=== PATIENT | male | born 1945 | race Caucasian/White ===

== ENCOUNTER 2017-09-16 18:05 | Inpatient (IN) | END 2017-09-21 19:00 | disposition home or self-care (01) | DRG 246 ==

== ENCOUNTER 2017-09-25 02:12 | Inpatient (IN) | END 2017-10-15 16:48 | disposition home health service (06) | DRG 853 ==

== ENCOUNTER 2017-10-20 13:40 | Inpatient (IN) | END 2017-10-31 17:15 | disposition home health service (06) | DRG 260 ==

== ENCOUNTER 2017-11-18 22:36 | Inpatient (IN) | END 2017-11-28 16:40 | disposition home health service (06) | DRG 250 ==

== ENCOUNTER 2018-08-26 04:55 | Inpatient (IN) | payer MEDICARE, OTHER ==
[~2018-08-26] VITALS: Ht 152.4 cm; Wt 51.4 kg
[~2018-08-26 04:55] MED LIST: APIX5TAB PO; ATOR-2 PO; BUME1TAB PO; CLOP75TA28 PO; POTA-57 PO
[2018-08-26 04:59] VITALS: Ht 152.4 cm; Wt 51.4 kg
[2018-08-26] MEDS ORDERED: ASPIRIN 325 MG TAB PO STA (05:52)
[2018-08-26] MEDS ORDERED: NITROGLYCERIN (SL) 0.4 MG TAB SL PRN ×2 (06:00→14:30)
[2018-08-26] MEDS ORDERED: SOD CHLORIDE 0.9% 500 ML IV STA (06:21)
--- NOTE | 2018-08-26 06:34 | ERD ---
ER Documentation Chief Complaint Chief Complaint lower chest area (underneath breasts) pain just now;hx CHF,stents HPI This is a 73-year-old male with a known history of coronary artery disease status post stents placed in September 2017. The patient at that time underwent an ST segment elevation myocardial infarction and underwent a successful angioplasty with stent placed in the LAD. Several months later the patient had more stents placed at [facility]. He is on Eliquis on a daily basis. He also has a history of hypertension and high cholesterol. He is to have a history of tobacco use but currently has not used tobacco for over a year. He presents to the emergency department today complaining of chest pressure that occurred at 10:30 PM, 8 hours prior to arrival. The patient indicates that the pain is intermittent. He had associated symptoms of nausea and diaphoresis. He took his blood pressure medicine at the onset of his chest pain which improved his pain to 6 out of 10 to 3 out of 10 in intensity. The pain does not radiate to his neck arm back or jaw. He had no associated symptoms of shortness of breath. ROS All systems reviewed and are negative except as per history of present illness. Medications Home Meds Active Scripts Potassium Chloride* (Klor-Con*) 20 Meq Tabsr, 20 MEQ PO DAILY for 30 Days, TAB Prov:OLENA DRAKE MD 11/28/17 Bumetanide* (Bumetanide*) 1 Mg Tablet, 1 MG PO TID, #90 TAB Prov:OLENA DRAKE MD 11/28/17 Atorvastatin* (Atorvastatin*) 80 Mg Tablet, 80 MG PO HS, #30 TAB Prov:SOFIYA CARR 10/15/17 Clopidogrel Bisulfate (Clopidogrel) 75 Mg Tablet, 75 MG PO DAILY for 60 Days, #60 TAB 5 Refills Prov:SOFIYA CARR 10/15/17 Apixaban* (Eliquis*) 5 Mg Tablet, 2.5 MG PO BID for 30 Days, #60 TAB Prov:SOFIYA CARR 10/15/17 Allergies Allergies: Coded Allergies: No Known Allergy (Unverified , 10/11/17) PMhx/Soc History of Surgery: Yes (pacemaker, stent) Anesthesia Reaction: No Hx Neurological Disorder: No Hx Respiratory Disorders: Yes (COPD) Hx Psychiatric Problems: No Hx Miscellaneous Medical Probl: Yes (gout) Hx Alcohol Use: No Hx Substance Use: No Hx Tobacco Use: No Smoking Status: Former smoker Physical Exam Vitals Vital Signs Date Temp Pulse Resp B/P (MAP) Pulse Ox O2 O2 Flow FiO2 Time Delivery Rate 08/26/18 73 16 95/71 (79) 97 Nasal 1.0 07:00 Cannula 08/26/18 Nasal 2 05:50 Cannula 08/26/18 70 16 98/85 (89) 97 Room Air 05:42 08/26/18 96.0 74 20 107/63 96 04:59 (78) Physical Exam Constitutional:Well-developed. Well-nourished. HEENT:Normocephalic. Atraumatic.Pupils were equal round reactive to light. Moist mucous membranes.No tonsillar exudates. Neck: No nuchal rigidity. No lymphadenopathy. No posterior cervical spine tenderness or step-offs. Respiratory: Not using accessory muscles of respiration.Lungs were clear to auscultation bilaterally. No rhonchi. No rales. No wheezing. Cardiovascular: Regular rate regular rhythm.No murmurs. No rubs were appreciated.S1, S2 normal. Distal pulses are palpable 2+ bilaterally. GI: Abdomen was soft. Nontender. Non Distended. No pulsatile abdominal masses or bruits. No rebound. No guarding. Bowel sounds were present and normal. Muscle skeletal: Full range of motion of both the upper and lower extremities bilaterally.Normal muscle tone.No assymetrical calf tenderness or swelling. Skin: No petechia, no purpura. No lesions on the palms or the soles of the feet. No maculopapular rash. NEURO: Patient was alert, awake, orientated x3.No facial droop. Gait observed and normal with no ataxia.Speech had regular rate and rhythm. No focal neurological deficits. Result Diagram: 08/26/1815 08/26/1815 Results 24 hrs Laboratory Tests Test 08/26/18 06:15 White Blood Count 6.8 10^3/ul Red Blood Count 3.74 10^6/ul Hemoglobin 10.2 g/dl Hematocrit 33.8 % Mean Corpuscular Volume 90.4 fl Mean Corpuscular Hemoglobin 27.3 pg Mean Corpuscular Hemoglobin Concent 30.2 g/dl Red Cell Distribution Width 19.0 % Platelet Count 243 10^3/UL Mean Platelet Volume 9.6 fl Immature Granulocytes % 0.600 % Neutrophils % 74.4 % Lymphocytes % 16.3 % Monocytes % 6.5 % Eosinophils % 1.8 % Basophils % 0.4 % Nucleated Red Blood Cells % 0.0 /100WBC Immature Granulocytes # 0.040 10^3/ul Neutrophils # 5.1 10^3/ul Lymphocytes # 1.1 10^3/ul Monocytes # 0.4 10^3/ul Eosinophils # 0.1 10^3/ul Basophils # 0.0 10^3/ul Nucleated Red Blood Cells # 0.0 10^3/ul Prothrombin Time 16.4 Sec Prothrombin Time Ratio 1.3 INR International Normalized Ratio 1.31 Activated Partial Thromboplast Time 43.4 Sec Sodium Level 145 mmol/L Potassium Level 3.8 mmol/L Chloride Level 110 mmol/L Carbon Dioxide Level 21 mmol/L Anion Gap 14 Blood Urea Nitrogen 33 mg/dl Creatinine 1.32 mg/dl Est Glomerular Filtrat Rate mL/min mL/min Glucose Level 141 mg/dl Calcium Level 9.6 mg/dl Total Bilirubin 0.5 mg/dl Direct Bilirubin 0.00 mg/dl Indirect Bilirubin 0.5 mg/dl Aspartate Amino Transf (AST/SGOT) 33 IU/L Alanine Aminotransferase (ALT/SGPT) 24 IU/L Alkaline Phosphatase 151 IU/L Troponin I 0.049 ng/ml B-Type Natriuretic Peptide 20114 PG/ML Total Protein 8.0 g/dl Albumin 4.1 g/dl Globulin 3.90 g/dl Albumin/Globulin Ratio 1.05 Lipase 41 U/L Current Medications Medications Dose Sig/Nicole Start Time Status Last (Trade) Ordered Route PRN Stop Time Admin Dose Reason Admin Aspirin 325 mg ONCE STAT 08/26/18 DC 08/26/18 (Aspirin) PO 05:52 06:18 08/26/18 05:54 1 tab Q5M UP TO 3 08/26/18 Nitroglycerin DOSES PRN 06:00 SL .CHEST (Nitroglyceri PAIN n (Sl Tab) 0.4 Mg) Sodium 500 ml @ Q1H STAT 08/26/18 DC 08/26/18 Chloride 500 mls/hr IV 06:21 06:56 08/26/18 07:20 Albuterol 5 mg ONCE STAT 08/26/18 DC (Proventil NEB 08:25 0.083% (Neb)) 08/26/18 08:27 Ipratropium 0.5 mg ONCE STAT 08/26/18 DC Roberts NEB 08:25 (Atrovent 08/26/18 08:27 0.02% (Neb)) Procedures/MDM The patient presented to the emergency department with chest pain. My clinical evaluation and workup was to distinguish minor causes of chest pain from acute life threatening conditions such as myocardial infarction, pulmonary embolism, aortic dissection, esophageal rupture, cardiac tamponade. The patient was placed on a security monitor and continuous pulse oximetry. The patient was given aspirin but nitroglycerin was not given as the patient was hypotensive. He did receive a 500 cc bolus of normal saline which improved his hypotension. 12 Lead EKG tracing ordered and reviewed by myself showed: Normal sinus rhythm of 81 bpm and no arrhythmia. [place] interval normal. QRS duration normal. No ST segment elevation. Premature supraventricular complexes No ST segment depression. No changes consistent with acute ischemia. The patient had an elevation of his BNP at 10,000. Chest radiograph had mild pulmonary vascular congestion. The patient received a nebulizer treatment. Lasix was not given as the patient was hypotensive. He remained alert awake and oriented x3 and was chest pain-free Due to the patient's significant previous cardiac history did feel he required admission for observation for serial twelve-lead EKG tracings and cardiac set of enzymes. His stage manager is Dr. Lara. Departure Diagnosis: Primary Impression: Chest pain Chest pain type: unspecified Qualified Codes: R07.9 - Chest pain, unspecified Additional Impression: CHF (congestive heart failure) Heart failure type: unspecified Heart failure chronicity: acute Qualified Codes: I50.9 - Heart failure, unspecified Condition: Serious JUAN MARTINEZ MD Aug 26, 2018 06:34
[2018-08-26] MEDS ORDERED: IPRATROPIUM (NEB) 0.5 MG/2.5 ML AMP NEB STA (08:25)
[2018-08-26] MEDS ORDERED: ALBUTEROL 0.083% (NEB) 2.5 MG/3 ML AMP NEB STA (08:25)
[2018-08-26] MEDS ORDERED: ONDANSETRON 4 MG INJ IV PRN ×2 (09:00→14:30)
[2018-08-26] MEDS ORDERED: ACETAMINOPHEN 325 MG TAB PO PRN ×2 (09:00→14:30)
[2018-08-26] MEDS ORDERED: CLOP75TA19 PO (10:58)
[2018-08-26] MEDS ORDERED: LOSA25TA12 PO (10:59)
[2018-08-26] MEDS ORDERED: APIX2.5T PO (10:59)
[2018-08-26] MEDS ORDERED: ATOR-2 PO (10:59)
[2018-08-26] MEDS ORDERED: FURO40TA4 PO (11:00)
[2018-08-26] MEDS ORDERED: POTA10TA37 PO (11:00)
[2018-08-26] MEDS ORDERED: ALLO300T2 PO (11:01)
--- NOTE | 2018-08-26 13:45 | HP ---
Date/Time of Note Date/Time of Note DATE: 08/26/18 TIME: 13:45 Assessment/Plan VTE Prophylaxis Pharmacological prophylaxis: apixaban Lines/Catheters IV Catheter Type (from [facility]): Saline Lock Assessment/Plan Hospital Course 73-year-old male with multiple comorbidities including CHF, CAD status post coronary artery stenting, paroxysmal atrial fibrillation, peripheral artery disease, chronic kidney disease, mitral regurgitation, COPD, and AICD placement. The patient came to the emergency room with chief complaint of dyspnea and chest pain, who was found to have evidence of underlying CHF exacerbation and will be admitted to inpatient setting for further treatment and evaluation. 1. Chest pain. -Known history of CAD. -Continue antiplatelet therapy. -Continue statins. -Serial troponins will be ordered. -A 2D echocardiogram will be ordered. -Cardiology consult will be obtained. 2. Acute on chronic congestive heart failure exacerbation, systolic dysfunction. -Will diurese the patient while carefully monitoring the patient's blood pressu re. -Obtain a 2D echocardiogram to evaluate the left ventricular ejection fraction. 3. Chronic kidney disease -Monitor BUN and creatinine closely -Use nephrotoxic drugs with caution. 4. Peripheral artery disease. -Continue antiplatelet therapy. 5. Paroxysmal atrial fibrillation. -Currently in sinus rhythm. -Continue factor Xa inhibitors for stroke prophylaxis. 6. CAD. -Status post coronary artery stenting. -Continue antiplatelet therapy. 7. Cardiomyopathy. -Continue ARB's. -Status post AICD placement. -Cardiology evaluation. 8. Dyslipidemia. -Continue statins. 9. COPD. -Continue inhaled bronchodilators. Plan: The patient will be admitted to inpatient telemetry floor. The patient will be started on a low-cholesterol diet. The patient will be started on DVT prophylaxis. The patient will remain a full code. Activities will be as tolerated. The rest of the patient's management will be based on the clinical course, inputs from consultants, and the results of diagnostic studies. Based on the patient's clinical presentation, he most probably requires at least 2 midnights' stay for further management and evaluation of his clinical presentation. The patient was seen in collaboration with Dr. Ulrich. Result Diagram: 08/26/18 0615 08/26/18 0615 Results 24hrs Laboratory Tests Test 08/26/18 06:15 08/26/18 12:51 White Blood Count 6.8 Red Blood Count 3.74 L Hemoglobin 10.2 L Hematocrit 33.8 L Mean Corpuscular Volume 90.4 Mean Corpuscular Hemoglobin 27.3 L Mean Corpuscular Hemoglobin Concent 30.2 L Red Cell Distribution Width 19.0 #H Platelet Count 243 Mean Platelet Volume 9.6 Immature Granulocytes % 0.600 H Neutrophils % 74.4 Lymphocytes % 16.3 Monocytes % 6.5 Eosinophils % 1.8 Basophils % 0.4 Nucleated Red Blood Cells % 0.0 Immature Granulocytes # 0.040 H Neutrophils # 5.1 Lymphocytes # 1.1 Monocytes # 0.4 Eosinophils # 0.1 Basophils # 0.0 Nucleated Red Blood Cells # 0.0 Prothrombin Time 16.4 H Prothrombin Time Ratio 1.3 INR International Normalized Ratio 1.31 Activated Partial Thromboplast Time 43.4 H Sodium Level 145 H Potassium Level 3.8 Chloride Level 110 Carbon Dioxide Level 21 Anion Gap 14 H Blood Urea Nitrogen 33 H Creatinine 1.32 H Est Glomerular Filtrat Rate mL/min Glucose Level 141 Calcium Level 9.6 Total Bilirubin 0.5 Direct Bilirubin 0.00 Indirect Bilirubin 0.5 Aspartate Amino Transf (AST/SGOT) 33 Alanine Aminotransferase (ALT/SGPT) 24 Alkaline Phosphatase 151 H Troponin I 0.049 0.022 B-Type Natriuretic Peptide 51263 H Total Protein 8.0 Albumin 4.1 Globulin 3.90 H Albumin/Globulin Ratio 1.05 Lipase 41 Creatine Kinase 47 Creatine Kinase Index 2.3 Creatinine Kinase MB (Mass) 1.10 HPI/ROS Admit Date/Time Admit Date/Time Hx of Present Illness Reason for admission: Chest pain. Consultants 1. Cardiology. This is a 73-year-old male with past medical history of systolic heart failure, CAD status post coronary artery stenting, paroxysmal atrial fibrillation, peripheral artery disease, chronic kidney disease, mitral regurgitation, COPD, and prior nicotine use. Patient came to the emergency room with chief complaint of chest pain that started from the night of 08/25/2018. The patient also verbalized associated shortness of breath. The patient denied any associated nausea, vomiting, or diaphoresis. The patient verbalized that he has been compliant with all his medications. The denied any fevers or chills. In the emergency room, the patient's initial set of troponins were negative. The patient's chest x-ray was showing slight to moderate right and small left pleural effusion with mild pulmonary edema. The patient's initial set of tropon ins were negative. The patient was treated with inhaled bronchodilators, aspirin, and Lasix. ROS Constitutional: fatigue Eyes: no complaints ENT: no complaints Respiratory: shortness of breath Cardiovascular: chest pain Gastrointestinal: no complaints Genitourinary: no complaints Musculoskeletal: no complaints Skin: no complaints Neurologic: no complaints Endocrine: no complaints Lymphatic: no complaints Psychological: no complaints Immunologic: no complaints PMH/Family/Social Past Medical History - CHF -Ischemic cardiomyopathy. -CAD. -Paroxysmal atrial fibrillation. -Peripheral arterial disease. -Chronic kidney disease -Mitral regurgitation. -COPD. Medications Current Medications Nitroglycerin (Nitroglycerin (Sl Tab) 0.4 Mg) 1 tab Q5M UP TO 3 DOSES PRN SL .CHEST PAIN; Start 08/26/18 at 06:00 Ondansetron HCl (Zofran Inj) 4 mg ER BRIDGE PRN IV NAUSEA/VOMITING; Start 08/26/18 at 09:00; Stop 08/27/18 at 08:59 Acetaminophen (Tylenol Tab) 650 mg ER BRIDGE PRN PO .MILD PAIN 1-3 OR TEMP; Start 08/26/18 at 09:00; Stop 08/27/18 at 08:59 Coded Allergies: No Known Allergy (Unverified , 08/27/18) Past Surgical History Past Surgical Hx: angioplasty, other (AICD placement, removal of infected AICD.) Family History Significant Family History: no pertinent family hx Social History Alcohol Use: none Smoking Status: Former smoker Drug Use: none Exam/Review of Systems Vital Signs Vitals Vital Signs Date Temp Pulse Resp B/P (MAP) Pulse Ox O2 O2 Flow FiO2 Time Delivery Rate 08/26/18 62 20 95 2.0 27 09:11 08/26/18 96/69 (78) Nasal 09:00 Cannula 08/26/18 96.0 04:59 Exam Exam General: Adequately build 73 year-old male lying in bed in mild respiratory distress. HEENT: Normocephalic, atraumatic. Eyes: Anicteric sclerae, conjunctivae clear. ENT: Nasal septum midline, oral mucosa moist. JVD noticed. Respiratory: Bilaterally diminished breath sounds. Use of accessory muscles of respiration. Bibasilar Rales. Expiratory wheezing. Cardiovascular: S1, S2 heard. Regular rate and rhythm. Abdomen: Soft, nontender, and nondistended. Bowel sounds positive in all 4 quadrants. Genitourinary: Deferred. Extremities: No cyanosis, no edema. Neurologic: Cranial nerves II through XII grossly intact. The patient is awake, alert, and oriented. Skin: Normal skin turgor. No skin rashes. Additional Comments CXR IMPRESSION: Small to moderate right and small left bilateral pleural effusions. Mild pulmonary edema. CHERISE RICO NP Aug 26, 2018 13:45
[2018-08-26] MEDS ORDERED: NACL 0.9% 3 ML SYG IV SCH (14:30)
[2018-08-26 16:11] VITALS: BP 101/60; PULSE 74; RESP 24
[2018-08-26] MEDS ORDERED: ALBUTEROL/IPRATROPIUM (NEB) 3 ML AMP HHN PRN (16:30)
[2018-08-26 17:14] VITALS: PULSE 81
[2018-08-26] MEDS: FUROSEMIDE 40 MG INJ IV SCH (17:40)
[2018-08-26] MEDS ORDERED: FUROSEMIDE 20 MG INJ IV SCH (18:00)
[2018-08-26 20:00] VITALS: BP 100/60; PULSE 75; PULSE 82; RESP 20
[2018-08-26] MEDS: ALBUTEROL/IPRATROPIUM (NEB) 3 ML AMP HHN SCH (20:55)
[2018-08-26] MEDS: ATORVASTATIN 80 MG TAB PO SCH (21:42)
[2018-08-26] MEDS: APIXABAN 5 MG TABLET PO SCH (21:42)
[2018-08-26 21:44] VITALS: PULSE 42
[2018-08-26] MEDS ORDERED: HEPARIN 5,000 UNIT/1 ML VIAL SC SCH (22:00)
[2018-08-27] VITALS (11 sets, daily range): BP systolic 89–113; BP diastolic 51–70; PULSE 62–143; RESP 18–20
[2018-08-27] MEDS: FUROSEMIDE 40 MG INJ IV SCH ×3 (05:35→18:54)
[2018-08-27] MEDS: ALBUTEROL/IPRATROPIUM (NEB) 3 ML AMP HHN SCH ×3 (08:28→19:19)
[2018-08-27] MEDS: CLOPIDOGREL 75 MG TAB PO SCH (08:36)
[2018-08-27] MEDS: APIXABAN 5 MG TABLET PO SCH ×2 (08:36→20:53)
[2018-08-27] MEDS: ALLOPURINOL 300 MG TAB PO SCH (08:36)
[2018-08-27] MEDS: LOSARTAN 25 MG TAB PO SCH (08:37)
[2018-08-27] MEDS ORDERED: POTASSIUM CHLORIDE 20 MEQ POWDER FOR ORAL SOLN PO ONE (09:00)
[2018-08-27] MEDS: SPIRONOLACTONE 25 MG TAB PO SCH (09:56)
--- NOTE | 2018-08-27 10:00 | RADRPT ---
Echocardiogram Report Patient Name: ELIDA FLYNNPatient ID: [id number] : 1945 (73y 4m)Study Date: 08/27/2018 7:58:35 AM Gender: Nelaion #: [id number] Tech: Laura Alvarado [facility] Location: [facility] Ref.Physician: CHERISE RICO Height(Cm): BSA: Weight(Kg): Quality: AdequateAccount #: Procedures: Echocardiographic Report: Transthoracic echocardiogram with complete 2D, M-Mode, and doppler examination. Indications: Chest Pain. Measurements: 2D/M Mode Doppler Measurement Value Normal Range Measurement Value Normal Range LVIDd 2D 5.7 [ 4.2 - 5.8 ] cm AV Peak Tulio 1.5 [ 100.0 - 170.0 ] cm/sec LVIDs 2D 4.8 [ 2.5 - 4.0 ] cm AV Peak PG 9.0 [ 2.0 - 9.0 ] mmHg LVPWd 2D 0.8 [ 0.6 - 1.0 ] cm LVOT Peak Tulio 0.6 [ 70.0 - 110.0 ] cm/sec IVSd 2D 0.9 [ 0.6 - 1.0 ] cm LVOT Peak PG 1.0 [ 2.0 - 6.0 ] mmHg IVS/LVPW 2D 1.0 ratio MV E Peak Tulio 1.1 [ 60.0 - 130.0 ] cm/sec AoR Diam 2D 2.5 [ 2.6 - 3.4 ] cm MV A Peak Tulio 0.3 [ 100.0 - 120.0 ] cm/sec LA/Ao 2D 2 ratio MV E/A 3.6 [ 0.8 - 1.5 ] ratio LA Dimen 2D 4.0 [ 3.0 - 4.0 ] cm MV Decel Time 127 [ 104 - 258 ] msec Lat E` Tulio 0.1 [ 10.0 - 15.0 ] cm/sec MV E/A 3.6 [ 0.8 - 1.5 ] ratio TR Peak Tulio 4.1 [ 100.0 - 280.0 ] cm/sec TR Peak PG 66.0 mmHg RVSP 74.0 [ 10.0 - 36.0 ] mmHg RA Pressure 8.0 mmHg Findings: Left Ventricle: Normal left ventricular wall thickness. Mild enlargement of left ventricle cavity. Severe global left ventricular systolic dysfunction with some regional variation and slightly better basal contraction. Ejection fraction is visually estimated at 20 %. Tissue Doppler/Mitral Doppler indices are consistent with restrictive physiology with markedly elevated left atrial pressure (Stage III-IV diastolic dysfunction). Right Ventricle: Normal right ventricular size. Normal right ventricular systolic function. Linear artifact in right ventricle suggestive of catheter, pacer lead, or ICD lead. Left Atrium: There is moderate enlargement of left atrium. Right Atrium: There is mild enlargement of right atrium. Mitral Valve: Normal appearance of the mitral valve. Mild mitral annular calcification. Moderate mitral valve regurgitation. Aortic Valve: Aortic sclerosis without significant stenosis. Mild aortic valve regurgitation. Tricuspid Valve: Normal appearance of the tricuspid valve. Estimated peak PA systolic pressure 74 mmHg. There is moderate to severe tricuspid regurgitation. Pulmonic Valve: Normal pulmonic valve appearance. Pericardium: Normal pericardium with no significant pericardial effusion. Aorta: Normal aortic root. IVC: Normal size and no respiratory collapse consistent with elevated right atrial pressure. Conclusions: Normal left ventricular wall thickness. Mild enlargement of left ventricle cavity. Severe global left ventricular systolic dysfunction with some regional variation and slightly better basal contraction. Ejection fraction is visually estimated at 20 %. Tissue Doppler/Mitral Doppler indices are consistent with restrictive physiology with markedly elevated left atrial pressure (Stage III-IV diastolic dysfunction). Moderate mitral valve regurgitation. Aortic sclerosis without significant stenosis. Mild aortic valve regurgitation. Moderate to severe tricuspid regurgitation. Linear artifact in right ventricle due to ICD lead. Severe pulmonary HTN with estimated peak PA systolic pressure 74 mmHg based on RA pressure of 8 mmHg. Electronically Signed By: Kishan Lara 2018-08-27 09:59:00 PDT
--- NOTE | 2018-08-27 10:12 | CONS ---
Assessment/Plan Assessment/Plan Hospital Course (Demo Recall) Acute on chronic systolic heart failure: Decompensated by exam and CXR. Possible trigger was recent viral vs bacterial illness Chest pain: More chest wall pain which he has had in the setting of CHF exacerbation vs from subendocardial ischemia in setting of elevated EDP. Troponins negative. Stress test will be misleading in setting of multiple MIs and doubt in stent restenosis or stent occlusion. For now med management of CHF and if recurrence, will consider further workup. H/o anterior STEMI: occurred 09/16/17. s/p PCI of prox-mid LAD. Ischemic cardiomyopathy: EF 20% and unchanged from post PCI 12/04 echo at [facility] PAD: right iliac 95% seen on cath 09/03. Considering outpt revascularization. CAD: attempted PCI of [employer] of mid Cx and prox RCA by me 11/22/17 which was unsuccessful but had successful PCI 12/01/17 at [facility]. Now fully revascularized. s/p [employer] ICD 01/2018 NSVT Paroxysmal atrial fibrillation: occurred during STEMI. 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 CKD: Cr baseline 1.3-1.6 -increase to lasix 40mg IV q8h -continue Eliquis 2.5mg BID -plavix 75mg -lipitor 80mg -losartan 25mg as tolerated -has not tolerated BB in past due to hypotension -aldactone 25mg -PRN nebs for COPD Consultation Date/Type/Reason Admit Date/Time Date of Consultation: Aug 27, 2018 Type of Consult Cardiology Reason for Consultation CHF, chest pain Requesting Provider: CHERISE RICO NP Date/Time of Note DATE: 08/27/18 TIME: 10:00 Hx of Present Illness 73 yo M who is very well known to me from prior admissions and clinic who has a complex cardiac history (see A/P for details), who presented with lower chest pain and dyspnea. He notes that he has been doing well since he last saw me 06/05 for routine follow up. About 4 days ago he started to develop a productive cough which he describes as being purulent. No fevers. His cough improved but he started to develop dyspnea and chest pain. The chest pain is unlike his GA pain which was substernal and mid chest. This is more lower chest around his ribs which is what he generally has felt in the past in the setting of his CHF exacerbation. He also has dyspnea, orthopnea. No edema. He is compliant with all of his meds and has not had a change in diet or salt intake. Troponins have been negative and he denies further chest pain. His dyspnea has improved somewhat with lasix last night. per hPI Past Medical History see details in A/P Home Meds Reported Medications Allopurinol* (Allopurinol*) 300 Mg Tablet, 300 MG PO DAILY, TAB 08/26/18 Potassium Chloride* (K-Dur*) 10 Meq Tab.prt.sr, 10 MEQ PO DAILY, TAB 08/26/18 Furosemide* (Furosemide*) 40 Mg Tablet, 40 MG PO BID, TAB 08/26/18 Atorvastatin* (Atorvastatin*) 80 Mg Tablet, 80 MG PO QHS, #30 TAB 08/26/18 Losartan Potassium* (Losartan Potassium*) 25 Mg Tablet, 25 MG PO DAILY, TAB 08/26/18 Apixaban* (Eliquis*) 2.5 Mg Tablet, 2.5 MG PO BID, TAB 08/26/18 Clopidogrel Bisulfate* (Clopidogrel Bisulfate*) 75 Mg Tablet, 75 MG PO DAILY, #30 TAB 08/26/18 Discontinued Scripts Potassium Chloride* (Klor-Con*) 20 Meq Tabsr, 20 MEQ PO DAILY for 30 Days, TAB Prov:OLENA DRAKE MD 11/28/17 Bumetanide* (Bumetanide*) 1 Mg Tablet, 1 MG PO TID, #90 TAB Prov:OLENA DRAKE MD 11/28/17 Atorvastatin* (Atorvastatin*) 80 Mg Tablet, 80 MG PO HS, #30 TAB Prov:SOFIYA CARR 10/15/17 Clopidogrel Bisulfate (Clopidogrel) 75 Mg Tablet, 75 MG PO DAILY for 60 Days, #60 TAB 5 Refills Prov:SOFIYA CARR 10/15/17 Apixaban* (Eliquis*) 5 Mg Tablet, 2.5 MG PO BID for 30 Days, #60 TAB Prov:SOFIYA CARR 10/15/17 Medications Current Medications IV Flush (NS 3 ml) 3 ml PER PROTOCOL IV Last administered on 08/26/18at 21:43; Admin Dose 3 ML; Start 08/26/18 at 14:30 Ondansetron HCl (Zofran Inj) 4 mg Q6H PRN IV NAUSEA/VOMITING; Start 08/26/18 at 14:30 Nitroglycerin (Nitroglycerin (Sl Tab) 0.4 Mg) 1 tab Q5M PRN SL .CHEST PAIN; Start 08/26/18 at 14:30 Acetaminophen (Tylenol Tab) 650 mg Q6H PRN PO .PAIN 1-3 OR TEMP; Start 08/26/18 at 14:30 Allopurinol (Zyloprim) 300 mg DAILY PO Last administered on 08/27/18at 08:36; Admin Dose 300 MG; Start 08/27/18 at 09:00 Apixaban (Eliquis) 2.5 mg BID PO Last administered on 08/27/18at 08:36; Admin Dose 2.5 MG; Start 08/26/18 at 21:00 Atorvastatin Calcium (Lipitor) 80 mg QHS PO Last administered on 08/26/18at 21:42; Admin Dose 80 MG; Start 08/26/18 at 21:00 Clopidogrel Bisulfate (plaVIX) 75 mg DAILY PO Last administered on 08/27/18at 08:36; Admin Dose 75 MG; Start 08/27/18 at 09:00 Losartan Potassium (Cozaar) 25 mg DAILY PO ; Start 08/27/18 at 09:00 Albuterol/ Ipratropium (Duoneb) 3 ml Q6HWA RESP THERAPY HHN Last administered on 08/27/18at 08:28; Admin Dose 3 ML; Start 08/26/18 at 20:00 Albuterol/ Ipratropium (Duoneb) 3 ml Q2H RESP THERAPY PRN HHN SHORTNESS OF BREATH; Start 08/26/18 at 16:30 Spironolactone (Aldactone) 25 mg DAILY PO Last administered on 08/27/18at 09:56; Admin Dose 25 MG; Start 08/27/18 at 09:00 Furosemide (Lasix) 40 mg Q8H IV ; Start 08/27/18 at 10:00; Status UNV Allergies: Coded Allergies: No Known Allergy (Unverified , 08/27/18) Past Surgical History Past Surgical Hx: angioplasty, other (AICD placement, removal of infected AICD.) Social History Alcohol Use: none Smoking Status: Former smoker Drug Use: none Exam/Review of Systems Exam Vitals Vital Signs Date Temp Pulse Resp B/P (MAP) Pulse Ox O2 O2 Flow FiO2 Time Delivery Rate 08/27/18 2.0 08:28 08/27/18 79 18 88 21 08:28 08/27/18 97.8 89/55 (66) 07:07 08/26/18 Nasal 20:55 Cannula Intake and Output 08/26/18 08/26/18 08/27/18 1515:00 23:00 07:00 IntakeIntake Total 360 ml 350 ml OutputOutput Total 500 ml 850 ml BalanceBalance -140 ml -500 ml Constitutional: alert, oriented; No distress Head: normocephalic, atraumatic Neck: jvd (10cm) Respiratory: crackles/rales (mid lungs ); No clear to auscultation Cardiovascular: regular rate and rhythm, edema (trace), systolic murmur (2/6 HSM) Gastrointestinal: soft, non-tender; No distended Neurological: nl mental status, nl speech Results Result Diagram: 08/27/1838 08/27/18 0538 Results 24hrs Laboratory Tests Test 08/26/18 12:51 08/26/18 16:40 08/27/18 05:38 Creatine Kinase 47 51 49 Creatine Kinase Index 2.3 2.4 3.3 Creatinine Kinase MB (Mass) 1.10 1.20 1.61 Troponin I 0.022 0.022 0.058 White Blood Count 7.2 Red Blood Count 3.36 L Hemoglobin 9.2 L Hematocrit 30.1 L Mean Corpuscular Volume 89.6 Mean Corpuscular Hemoglobin 27.4 L Mean Corpuscular Hemoglobin Concent 30.6 L Red Cell Distribution Width 19.1 H Platelet Count 234 Mean Platelet Volume 10.1 Immature Granulocytes % 0.400 Neutrophils % 76.2 Lymphocytes % 14.1 L Monocytes % 6.4 Eosinophils % 2.2 Basophils % 0.7 Nucleated Red Blood Cells % 0.0 Immature Granulocytes # 0.030 Neutrophils # 5.5 Lymphocytes # 1.0 Monocytes # 0.5 Eosinophils # 0.2 Basophils # 0.1 Nucleated Red Blood Cells # 0.0 Sodium Level 145 H Potassium Level 3.8 Chloride Level 114 H Carbon Dioxide Level 21 Anion Gap 10 Blood Urea Nitrogen 28 H Creatinine 1.11 Est Glomerular Filtrat Rate mL/min Glucose Level 128 Calcium Level 9.4 Phosphorus Level 3.4 Magnesium Level 2.2 B-Type Natriuretic Peptide 72879 H Triglycerides Level 64 Cholesterol Level 99 L LDL Cholesterol, Calculated 54 HDL Cholesterol 32 Cholesterol/HDL Ratio 3.0 Medications Medication Current Medications IV Flush (NS 3 ml) 3 ml PER PROTOCOL IV Last administered on 08/26/18 21:43; Admin Dose 3 ML; Start 08/26/18 at 14:30 Ondansetron HCl (Zofran Inj) 4 mg Q6H PRN IV NAUSEA/VOMITING; Start 08/26/18 at 14:30 Nitroglycerin (Nitroglycerin (Sl Tab) 0.4 Mg) 1 tab Q5M PRN SL .CHEST PAIN; Start 08/26/18 at 14:30 Acetaminophen (Tylenol Tab) 650 mg Q6H PRN PO .PAIN 1-3 OR TEMP; Start 08/26/18 at 14:30 Allopurinol (Zyloprim) 300 mg DAILY PO Last administered on 08/27/18 08:36; Admin Dose 300 MG; Start 08/27/18 at 09:00 Apixaban (Eliquis) 2.5 mg BID PO Last administered on 08/27/18 08:36; Admin Dose 2.5 MG; Start 08/26/18 at 21:00 Atorvastatin Calcium (Lipitor) 80 mg QHS PO Last administered on 08/26/18 21:4 2; Admin Dose 80 MG; Start 08/26/18 at 21:00 Clopidogrel Bisulfate (plaVIX) 75 mg DAILY PO Last administered on 08/27/18 08:36; Admin Dose 75 MG; Start 08/27/18 at 09:00 Losartan Potassium (Cozaar) 25 mg DAILY PO ; Start 08/27/18 at 09:00 Albuterol/ Ipratropium (Duoneb) 3 ml Q6HWA RESP THERAPY HHN Last administered on 08/27/18 08:28; Admin Dose 3 ML; Start 08/26/18 at 20:00 Albuterol/ Ipratropium (Duoneb) 3 ml Q2H RESP THERAPY PRN HHN SHORTNESS OF BREATH; Start 08/26/18 at 16:30 Spironolactone (Aldactone) 25 mg DAILY PO Last administered on 08/27/18 09:56; Admin Dose 25 MG; Start 08/27/18 at 09:00 Furosemide (Lasix) 40 mg Q8H IV ; Start 08/27/18 at 10:00; Status JUANITO LOZANO Aug 27, 2018 10:12
[2018-08-27] MEDS ORDERED: FUROSEMIDE 40 MG INJ ONE (11:32)
[2018-08-27] MEDS ORDERED: GUAIFENESIN/DM 5ML CUP PO PRN (17:30)
[2018-08-27] MEDS: FAMOTIDINE 20 MG TAB PO SCH (18:54)
[2018-08-27] MEDS: SENNA/DOCUSATE NA (8.6MG/50MG) TAB PO SCH (20:52)
[2018-08-27] MEDS: ATORVASTATIN 80 MG TAB PO SCH (20:52)
[2018-08-28] VITALS (10 sets, daily range): BP systolic 94–101; BP diastolic 58–69; PULSE 72–86; RESP 18–20
[2018-08-28] MEDS: APIXABAN 5 MG TABLET PO SCH ×2 (08:14→20:49)
[2018-08-28] MEDS: THIAMINE 100 MG TAB PO SCH (08:14)
[2018-08-28] MEDS: FUROSEMIDE 40 MG INJ IV SCH ×4 (08:14→17:03)
[2018-08-28] MEDS: ALLOPURINOL 300 MG TAB PO SCH (08:14)
[2018-08-28] MEDS: LOSARTAN 25 MG TAB PO SCH (08:14)
[2018-08-28] MEDS: SPIRONOLACTONE 25 MG TAB PO SCH (08:14)
[2018-08-28] MEDS: FAMOTIDINE 20 MG TAB PO SCH (08:15)
[2018-08-28] MEDS: CLOPIDOGREL 75 MG TAB PO SCH (08:15)
[2018-08-28] MEDS: ALBUTEROL/IPRATROPIUM (NEB) 3 ML AMP HHN SCH ×3 (08:24→22:57)
--- NOTE | 2018-08-28 08:37 | CONS ---
Assessment/Plan Assessment/Plan Hospital Course (Demo Recall) Acute on chronic systolic heart failure: Decompensated by exam and CXR. Possible trigger was recent viral vs bacterial illness. Though extremities are warm, elevated lactate reflects hypoperfusion and pt remains significantly decompensated Chest pain: More chest wall pain which he has had in the setting of CHF exacerbation vs from subendocardial ischemia in setting of elevated EDP. Troponins negative. Stress test will be misleading in setting of multiple MIs and doubt in stent restenosis or stent occlusion. For now med management of CHF and if recurrence, will consider further workup. H/o anterior STEMI: occurred 09/16/17. s/p PCI of prox-mid LAD. Ischemic cardiomyopathy: EF 20% and unchanged from post PCI 12/[address] [facility] PAD: right iliac 95% seen on cath 09/03. Considering outpt revascularization. CAD: attempted PCI of [employer] of mid Cx and prox RCA by me 11/22/17 which was unsuccessful but had successful PCI 12/01/[address] [facility]. Now fully revascularized. s/p [employer] ICD 01/2018 NSVT Paroxysmal atrial fibrillation: occurred during STEMI. On Eliquis Chronic respiratory failure: now off home oxygen COPD Tobacco use: heavy use now in remission after [place] CKD: Cr baseline 1.3-1.6 -increase to lasix 60mg IV q8h -one dose of metolazone 5mg -continue Eliquis 2.5mg BID -plavix 75mg -lipitor 80mg -losartan 25mg as tolerated -has not tolerated BB in past due to hypotension -aldactone 25mg -PRN nebs for COPD Consultation Date/Type/Reason Admit Date/Time Aug 26, 2018 at 08:35 Initial Consult Date 08/27/18 Type of Consult Cardiology Requesting Provider: CHERISE RICO NP Date/Time of Note DATE: 08/28/18 TIME: 08:33 24 HR Interval Summary Free Text/Dictation Lactate 2.2 this am. Net negative <500mL yesterday. Remains SOB. Exam/Review of Systems Exam Vitals Vital Signs Date Temp Pulse Resp B/P (MAP) Pulse Ox O2 O2 Flow FiO2 Time Delivery Rate 08/28/18 Nasal 2.0 07:28 Cannula 08/28/18 97.6 79 19 96/60 (72) 96 07:17 08/27/18 21 08:28 Intake and Output 08/27/18 08/27/18 08/28/18 1515:00 23:00 07:00 IntakeIntake Total 800 ml 300 ml OutputOutput Total 750 ml 800 ml BalanceBalance 50 ml -500 ml Constitutional: alert, oriented Head: normocephalic, atraumatic Neck: jvd (angle of jaw) Respiratory: crackles/rales (mid lungs ); No clear to auscultation Cardiovascular: regular rate and rhythm; No edema Gastrointestinal: soft, non-tender; No distended Extremities: other (warm); No edema Neurological: nl mental status, nl speech Results Result Diagram: 08/28/18 0539 08/28/18 0539 Results 24hrs Laboratory Tests Test 08/28/18 05:39 White Blood Count 10.0 # Red Blood Count 3.44 L Hemoglobin 9.4 L Hematocrit 30.6 L Mean Corpuscular Volume 89.0 Mean Corpuscular Hemoglobin 27.3 L Mean Corpuscular Hemoglobin Concent 30.7 L Red Cell Distribution Width 19.2 H Platelet Count 244 Mean Platelet Volume 10.1 Immature Granulocytes % 0.500 H Neutrophils % 76.5 Lymphocytes % 14.6 L Monocytes % 6.0 Eosinophils % 1.9 Basophils % 0.5 Nucleated Red Blood Cells % 0.0 Immature Granulocytes # 0.050 H Neutrophils # 7.6 H Lymphocytes # 1.5 Monocytes # 0.6 Eosinophils # 0.2 Basophils # 0.1 Nucleated Red Blood Cells # 0.0 Prothrombin Time 18.2 H Prothrombin Time Ratio 1.4 INR International Normalized Ratio 1.50 Sodium Level 143 Potassium Level 4.1 Chloride Level 110 Carbon Dioxide Level 23 Anion Gap 10 Blood Urea Nitrogen 25 H Creatinine 1.30 H Est Glomerular Filtrat Rate mL/min Glucose Level 131 Lactic Acid Level 2.4 *H Calcium Level 9.4 Phosphorus Level 3.3 Magnesium Level 2.3 Total Bilirubin 0.6 Direct Bilirubin 0.00 Indirect Bilirubin 0.6 Aspartate Amino Transf (AST/SGOT) 24 Alanine Aminotransferase (ALT/SGPT) 25 Alkaline Phosphatase 133 H Total Protein 7.2 Albumin 3.6 Globulin 3.60 H Albumin/Globulin Ratio 1.00 Medications Medication Current Medications IV Flush (NS 3 ml) 3 ml PER PROTOCOL IV Last administered on 08/26/18at 21:43; Admin Dose 3 ML; Start 08/26/18 at 14:30 Ondansetron HCl (Zofran Inj) 4 mg Q6H PRN IV NAUSEA/VOMITING; Start 08/26/18 at 14:30 Nitroglycerin (Nitroglycerin (Sl Tab) 0.4 Mg) 1 tab Q5M PRN SL .CHEST PAIN; Start 08/26/18 at 14:30 Acetaminophen (Tylenol Tab) 650 mg Q6H PRN PO .PAIN 1-3 OR TEMP; Start 08/26/18 at 14:30 Allopurinol (Zyloprim) 300 mg DAILY PO Last administered on 08/28/18 08:14; Admin Dose 300 MG; Start 08/27/18 at 09:00 Apixaban (Eliquis) 2.5 mg BID PO Last administered on 08/28/18 08:14; Admin Dose 2.5 MG; Start 08/26/18 at 21:00 Atorvastatin Calcium (Lipitor) 80 mg QHS PO Last administered on 08/27/18at 20:52; Admin Dose 80 MG; Start 08/26/18 at 21:00 Clopidogrel Bisulfate (plaVIX) 75 mg DAILY PO Last administered on 08/28/18 08:15; Admin Dose 75 MG; Start 08/27/18 at 09:00 Losartan Potassium (Cozaar) 25 mg DAILY PO ; Start 08/27/18 at 09:00 Albuterol/ Ipratropium (Duoneb) 3 ml Q6HWA RESP THERAPY HHN Last administered on 08/28/18 08:24; Admin Dose 3 ML; Start 08/26/18 at 20:00 Albuterol/ Ipratropium (Duoneb) 3 ml Q2H RESP THERAPY PRN HHN SHORTNESS OF BREATH; Start 08/26/18 at 16:30 Spironolactone (Aldactone) 25 mg DAILY PO Last administered on 08/28/18 08:14; Admin Dose 25 MG; Start 08/27/18 at 09:00 Furosemide (Lasix) 40 mg TID@0900,1300,1800 IV Last administered on 08/28/18 08:14; Admin Dose 40 MG; Start 08/27/18 at 13:00 Thiamine HCl (Vitamin B1) 100 mg DAILY PO Last administered on 08/28/18 08:14; Admin Dose 100 MG; Start 08/28/18 at 09:00 Guaifenesin/ Dextromethorphan (Robitussin Dm Liquid Cup) 10 ml Q4H PRN PO COUGH; Start 08/27/18 at 17:30 Famotidine (Pepcid) 20 mg DAILY PO Last administered on 08/28/18at 08:15; Admin Dose 20 MG; Start 08/27/18 at 17:30 Senna/Docusate Sodium (Senokot-S) 2 tab HS PO Last administered on 08/27/18at 20:52; Admin Dose 2 TAB; Start 08/27/18 at 21:00 JUANITO BENITEZ Aug 28, 2018 08:37
[2018-08-28] MEDS ORDERED: METOLAZONE 5 MG TAB PO ONE (09:00)
[2018-08-28] MEDS ORDERED: CALCIUM CARBONATE 500 MG CHEW TAB PO PRN (11:00)
--- NOTE | 2018-08-28 14:41 | PN ---
Date/Time of Note Date/Time of Note DATE: 08/28/18 TIME: 14:38 Assessment/Plan VTE Prophylaxis Risk score (from Ns)>0 risk: 2 [place]CD [place] [facility] No SCD contraindicated: low risk/ambulating Pharmacological prophylaxis: LMWH Lines/Catheters IV [facility]from [facility] [place] Assessment/Plan Hospital Course Late entry for 08/27 Assessment plan 1. Dyspnea, reactive airway disease, stable continue nebulizer. 2. Acute on chronic decompensated systolic CHF, stable continue diuretics. 3. Chronic ischemic cardia myopathy 4. Chronic paroxysmal A. fib 5. Chronic COPD 6. Past tobacco 7. Attention 8. Dyslipidemia 9. CAD ho PCI 10. PAD 11. CKD 12. Valvular heart disease: Mild to mod MR S: Cough may be white expectoration. O; no signs stable rate controlled Physical exam No pallor Appears regular no murmur or gallop Diminished breath sounds some crackles bilaterally Bowel sounds positive nontender nondistended Mild edema Result Diagram: 08/28/18 0539 08/28/18 0539 Results 24hrs Laboratory Tests Test 08/28/18 05:39 White Blood Count 10.0 # Red Blood Count 3.44 L Hemoglobin 9.4 L Hematocrit 30.6 L Mean Corpuscular Volume 89.0 Mean Corpuscular Hemoglobin 27.3 L Mean Corpuscular Hemoglobin Concent 30.7 L Red Cell Distribution Width 19.2 H Platelet Count 244 Mean Platelet Volume 10.1 Immature Granulocytes % 0.500 H Neutrophils % 76.5 Lymphocytes % 14.6 L Monocytes % 6.0 Eosinophils % 1.9 Basophils % 0.5 Nucleated Red Blood Cells % 0.0 Immature Granulocytes # 0.050 H Neutrophils # 7.6 H Lymphocytes # 1.5 Monocytes # 0.6 Eosinophils # 0.2 Basophils # 0.1 Nucleated Red Blood Cells # 0.0 Prothrombin Time 18.2 H Prothrombin Time Ratio 1.4 INR International Normalized Ratio 1.50 Sodium Level 143 Potassium Level 4.1 Chloride Level 110 Carbon Dioxide Level 23 Anion Gap 10 Blood Urea Nitrogen 25 H Creatinine 1.30 H Est Glomerular Filtrat Rate mL/min Glucose Level 131 Lactic Acid Level 2.4 *H Calcium Level 9.4 Phosphorus Level 3.3 Magnesium Level 2.3 Total Bilirubin 0.6 Direct Bilirubin 0.00 Indirect Bilirubin 0.6 Aspartate Amino Transf (AST/SGOT) 24 Alanine Aminotransferase (ALT/SGPT) 25 Alkaline Phosphatase 133 H Total Protein 7.2 Albumin 3.6 Globulin 3.60 H Albumin/Globulin Ratio 1.00 Exam/Review of Systems Exam Vitals Vital Signs Date Temp Pulse Resp B/P (MAP) Pulse Ox O2 O2 Flow FiO2 Time Delivery Rate 08/28/18 80 20 89 Nasal 3.0 13:50 Cannula 08/28/18 98.1 99/62 (74) 11:23 08/28/18 21 08:25 Intake and Output 08/27/18 08/27/18 08/28/18 1515:00 23:00 07:00 IntakeIntake Total 800 ml 300 ml OutputOutput Total 750 ml 800 ml BalanceBalance 50 ml -500 ml Results Results 24hrs Laboratory Tests Test 08/28/18 05:39 White Blood Count 10.0 # Red Blood Count 3.44 L Hemoglobin 9.4 L Hematocrit 30.6 L Mean Corpuscular Volume 89.0 Mean Corpuscular Hemoglobin 27.3 L Mean Corpuscular Hemoglobin Concent 30.7 L Red Cell Distribution Width 19.2 H Platelet Count 244 Mean Platelet Volume 10.1 Immature Granulocytes % 0.500 H Neutrophils % 76.5 Lymphocytes % 14.6 L Monocytes % 6.0 Eosinophils % 1.9 Basophils % 0.5 Nucleated Red Blood Cells % 0.0 Immature Granulocytes # 0.050 H Neutrophils # 7.6 H Lymphocytes # 1.5 Monocytes # 0.6 Eosinophils # 0.2 Basophils # 0.1 Nucleated Red Blood Cells # 0.0 Prothrombin Time 18.2 H Prothrombin Time Ratio 1.4 INR International Normalized Ratio 1.50 Sodium Level 143 Potassium Level 4.1 Chloride Level 110 Carbon Dioxide Level 23 Anion Gap 10 Blood Urea Nitrogen 25 H Creatinine 1.30 H Est Glomerular Filtrat Rate mL/min Glucose Level 131 Lactic Acid Level 2.4 *H Calcium Level 9.4 Phosphorus Level 3.3 Magnesium Level 2.3 Total Bilirubin 0.6 Direct Bilirubin 0.00 Indirect Bilirubin 0.6 Aspartate Amino Transf (AST/SGOT) 24 Alanine Aminotransferase (ALT/SGPT) 25 Alkaline Phosphatase 133 H Total Protein 7.2 Albumin 3.6 Globulin 3.60 H Albumin/Globulin Ratio 1.00 Medications Medication Current Medications IV Flush (NS 3 ml) 3 ml PER PROTOCOL IV Last administered on 08/26/18at 21:43; Admin Dose 3 ML; Start 08/26/18 at 14:30 Ondansetron HCl (Zofran Inj) 4 mg Q6H PRN IV NAUSEA/VOMITING; Start 08/26/18 at 14:30 Nitroglycerin (Nitroglycerin (Sl Tab) 0.4 Mg) 1 tab Q5M PRN SL .CHEST PAIN; Start 08/26/18 at 14:30 Acetaminophen (Tylenol Tab) 650 mg Q6H PRN PO .PAIN 1-3 OR TEMP; Start 08/26/18 at 14:30 Allopurinol (Zyloprim) 300 mg DAILY PO Last administered on 08/28/18 08:14; Admin Dose 300 MG; Start 08/27/18 at 09:00 Apixaban (Eliquis) 2.5 mg BID PO Last administered on 08/28/18 08:14; Admin Dose 2.5 MG; Start 08/26/18 at 21:00 Atorvastatin Calcium (Lipitor) 80 mg QHS PO Last administered on 08/27/18at 20:52; Admin Dose 80 MG; Start 08/26/18 at 21:00 Clopidogrel Bisulfate (plaVIX) 75 mg DAILY PO Last administered on 08/28/18 08:15; Admin Dose 75 MG; Start 08/27/18 at 09:00 Losartan Potassium (Cozaar) 25 mg DAILY PO ; Start 08/27/18 at 09:00 Albuterol/ Ipratropium (Duoneb) 3 ml Q6HWA RESP THERAPY HHN Last administered on 08/28/18at 13:48; Admin Dose 3 ML; Start 08/26/18 at 20:00 Albuterol/ Ipratropium (Duoneb) 3 ml Q2H RESP THERAPY PRN HHN SHORTNESS OF BREATH; Start 08/26/18 at 16:30 Spironolactone (Aldactone) 25 mg DAILY PO Last administered on 08/28/18 08:14; Admin Dose 25 MG; Start 08/27/18 at 09:00 Thiamine HCl (Vitamin B1) 100 mg DAILY PO Last administered on 08/28/18 08:14; Admin Dose 100 MG; Start 08/28/18 at 09:00 Guaifenesin/ Dextromethorphan (Robitussin Dm Liquid Cup) 10 ml Q4H PRN PO COUGH; Start 08/27/18 at 17:30 Famotidine (Pepcid) 20 mg DAILY PO Last administered on 08/28/18at 08:15; Admin Dose 20 MG; Start 08/27/18 at 17:30 Senna/Docusate Sodium (Senokot-S) 2 tab HS PO Last administered on 08/27/18at 20:52; Admin Dose 2 TAB; Start 08/27/18 at 21:00 Furosemide (Lasix) 60 mg TID@0900,1300,1800 IV Last administered on 08/28/18at 12:51; Admin Dose 60 MG; Start 08/28/18 at 09:00 WES DAVID MD Aug 28, 2018 14:41
--- NOTE | 2018-08-28 14:45 | PN ---
Date/Time of Note Date/Time of Note DATE: 08/28/18 TIME: 14:43 Assessment/Plan VTE Prophylaxis Risk score (from Ns)>0 risk: 2 SCD applied (from [facility] [place] No SCD contraindicated: low risk/ambulating Pharmacological prophylaxis: apixaban Lines/Catheters IV Catheter Type (from [facility]): Saline Lock Assessment/Plan Hospital Course Assessment plan 1. Dyspnea, reactive airway disease, stable continue nebulizer. Chest x-ray negative no influenza. Check procalcitonin, may not need steroids or antibiotics. 2. Acute on chronic decompensated systolic CHF, stable cont diuretics. 3. Chronic ischemic cardiomyopathy 4. Chronic paroxysmal A. fib continue Eliquis additionally 5. Chronic COPD 6. Past tobacco 7. Hypertension 8. Dyslipidemia 9. CAD ho PCI 10. PAD 11. CKD 12. Valvular heart disease: Mild to mod MR S: 08/27 cough may be white expectoration. 08/28: No events some dyspnea mostly exertional no fever O: vss PE No pallor Reg no m/r/g Dimin bs, some crackles bilat Bs+ nt nd; no r/r/g Mild edema Result Diagram: 08/28/18 0539 08/28/18 0539 Results 24hrs Laboratory Tests Test 08/28/18 05:39 White Blood Count 10.0 # Red Blood Count 3.44 L Hemoglobin 9.4 L Hematocrit 30.6 L Mean Corpuscular Volume 89.0 Mean Corpuscular Hemoglobin 27.3 L Mean Corpuscular Hemoglobin Concent 30.7 L Red Cell Distribution Width 19.2 H Platelet Count 244 Mean Platelet Volume 10.1 Immature Granulocytes % 0.500 H Neutrophils % 76.5 Lymphocytes % 14.6 L Monocytes % 6.0 Eosinophils % 1.9 Basophils % 0.5 Nucleated Red Blood Cells % 0.0 Immature Granulocytes # 0.050 H Neutrophils # 7.6 H Lymphocytes # 1.5 Monocytes # 0.6 Eosinophils # 0.2 Basophils # 0.1 Nucleated Red Blood Cells # 0.0 Prothrombin Time 18.2 H Prothrombin Time Ratio 1.4 INR International Normalized Ratio 1.50 Sodium Level 143 Potassium Level 4.1 Chloride Level 110 Carbon Dioxide Level 23 Anion Gap 10 Blood Urea Nitrogen 25 H Creatinine 1.30 H Est Glomerular Filtrat Rate mL/min Glucose Level 131 Lactic Acid Level 2.4 *H Calcium Level 9.4 Phosphorus Level 3.3 Magnesium Level 2.3 Total Bilirubin 0.6 Direct Bilirubin 0.00 Indirect Bilirubin 0.6 Aspartate Amino Transf (AST/SGOT) 24 Alanine Aminotransferase (ALT/SGPT) 25 Alkaline Phosphatase 133 H Total Protein 7.2 Albumin 3.6 Globulin 3.60 H Albumin/Globulin Ratio 1.00 Exam/Review of Systems Exam Vitals Vital Signs Date Temp Pulse Resp B/P (MAP) Pulse Ox O2 O2 Flow FiO2 Time Delivery Rate 08/28/18 80 20 89 Nasal 3.0 13:50 Cannula 08/28/18 98.1 99/62 (74) 11:23 08/28/18 21 08:25 Intake and Output 08/27/18 08/27/18 08/28/18 1515:00 23:00 07:00 IntakeIntake Total 800 ml 300 ml OutputOutput Total 750 ml 800 ml BalanceBalance 50 ml -500 ml Results Results 24hrs Laboratory Tests Test 08/28/18 05:39 White Blood Count 10.0 # Red Blood Count 3.44 L Hemoglobin 9.4 L Hematocrit 30.6 L Mean Corpuscular Volume 89.0 Mean Corpuscular Hemoglobin 27.3 L Mean Corpuscular Hemoglobin Concent 30.7 L Red Cell Distribution Width 19.2 H Platelet Count 244 Mean Platelet Volume 10.1 Immature Granulocytes % 0.500 H Neutrophils % 76.5 Lymphocytes % 14.6 L Monocytes % 6.0 Eosinophils % 1.9 Basophils % 0.5 Nucleated Red Blood Cells % 0.0 Immature Granulocytes # 0.050 H Neutrophils # 7.6 H Lymphocytes # 1.5 Monocytes # 0.6 Eosinophils # 0.2 Basophils # 0.1 Nucleated Red Blood Cells # 0.0 Prothrombin Time 18.2 H Prothrombin Time Ratio 1.4 INR International Normalized Ratio 1.50 Sodium Level 143 Potassium Level 4.1 Chloride Level 110 Carbon Dioxide Level 23 Anion Gap 10 Blood Urea Nitrogen 25 H Creatinine 1.30 H Est Glomerular Filtrat Rate mL/min Glucose Level 131 Lactic Acid Level 2.4 *H Calcium Level 9.4 Phosphorus Level 3.3 Magnesium Level 2.3 Total Bilirubin 0.6 Direct Bilirubin 0.00 Indirect Bilirubin 0.6 Aspartate Amino Transf (AST/SGOT) 24 Alanine Aminotransferase (ALT/SGPT) 25 Alkaline Phosphatase 133 H Total Protein 7.2 Albumin 3.6 Globulin 3.60 H Albumin/Globulin Ratio 1.00 Medications Medication Current Medications IV Flush (NS 3 ml) 3 ml PER PROTOCOL IV Last administered on 08/26/18 21:43; Admin Dose 3 ML; Start 08/26/18 at 14:30 Ondansetron HCl (Zofran Inj) 4 mg Q6H PRN IV NAUSEA/VOMITING; Start 08/26/18 at 14:30 Nitroglycerin (Nitroglycerin (Sl Tab) 0.4 Mg) 1 tab Q5M PRN SL .CHEST PAIN; Start 08/26/18 at 14:30 Acetaminophen (Tylenol Tab) 650 mg Q6H PRN PO .PAIN 1-3 OR TEMP; Start 08/26/18 at 14:30 Allopurinol (Zyloprim) 300 mg DAILY PO Last administered on 08/28/18 08:14; Admin Dose 300 MG; Start 08/27/18 at 09:00 Apixaban (Eliquis) 2.5 mg BID PO Last administered on 08/28/18 08:14; Admin Dose 2.5 MG; Start 08/26/18 at 21:00 Atorvastatin Calcium (Lipitor) 80 mg QHS PO Last administered on 08/27/18 20:52; Admin Dose 80 MG; Start 08/26/18 at 21:00 Clopidogrel Bisulfate (plaVIX) 75 mg DAILY PO Last administered on 08/28/18 08:15; Admin Dose 75 MG; Start 08/27/18 at 09:00 Losartan Potassium (Cozaar) 25 mg DAILY PO ; Start 08/27/18 at 09:00 Albuterol/ Ipratropium (Duoneb) 3 ml Q6HWA RESP THERAPY HHN Last administered on 08/28/18 13:48; Admin Dose 3 ML; Start 08/26/18 at 20:00 Albuterol/ Ipratropium (Duoneb) 3 ml Q2H RESP THERAPY PRN HHN SHORTNESS OF BREATH; Start 08/26/18 at 16:30 Spironolactone (Aldactone) 25 mg DAILY PO Last administered on 08/28/18 08:14; Admin Dose 25 MG; Start 08/27/18 at 09:00 Thiamine HCl (Vitamin B1) 100 mg DAILY PO Last administered on 08/28/18 08:14; Admin Dose 100 MG; Start 08/28/18 at 09:00 Guaifenesin/ Dextromethorphan (Robitussin Dm Liquid Cup) 10 ml Q4H PRN PO COUGH; Start 08/27/18 at 17:30 Famotidine (Pepcid) 20 mg DAILY PO Last administered on 08/28/18at 08:15; Admin Dose 20 MG; Start 08/27/18 at 17:30 Senna/Docusate Sodium (Senokot-S) 2 tab HS PO Last administered on 08/27/18at 20:52; Admin Dose 2 TAB; Start 08/27/18 at 21:00 Furosemide (Lasix) 60 mg TID@0900,1300,1800 IV Last administered on 08/28/18at 12:51; Admin Dose 60 MG; Start 08/28/18 at 09:00 WES DAVID MD Aug 28, 2018 14:45
[2018-08-28] MEDS: ATORVASTATIN 80 MG TAB PO SCH (20:48)
[2018-08-28] MEDS: SENNA/DOCUSATE NA (8.6MG/50MG) TAB PO SCH (20:49)
[2018-08-29] VITALS (12 sets, daily range): BP systolic 83–103; BP diastolic 53–63; PULSE 64–87; RESP 19–20
[2018-08-29] MEDS: ALBUTEROL/IPRATROPIUM (NEB) 3 ML AMP HHN SCH ×3 (00:33→15:43)
--- NOTE | 2018-08-29 09:45 | CONS ---
Assessment/Plan Assessment/Plan Hospital Course (Demo Recall) Acute on chronic systolic heart failure: Decompensated by exam and CXR. Possible trigger was recent viral vs bacterial illness. Lactic acidosis now resolved after diuresis. Cr increased today probably due to intravascular volume changes but still with pulm edema by CXR. Chest pain: More chest wall pain which he has had in the setting of CHF exacerbation vs from subendocardial ischemia in setting of elevated EDP. Troponins negative. Stress test will be misleading in setting of multiple MIs and doubt in stent restenosis or stent occlusion. For now med management of CHF and if recurrence, will consider further workup. H/o anterior STEMI: occurred 09/16/17. s/p PCI of prox-mid LAD. Ischemic cardiomyopathy: EF 20% and unchanged from post PCI 12/04 echo at [facility] PAD: right iliac 95% seen on cath 09/03. Considering outpt revascularization. CAD: attempted PCI of [employer] of mid Cx and prox RCA by me 11/22/17 which was unsuccessful but had successful PCI 12/01/17 at [facility]. Now fully revascularized. s/p [employer] ICD 01/2018 NSVT Paroxysmal atrial fibrillation: occurred during STEMI. 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 Slightly worse with diuresis -keep in hospital one more day -decrease to lasix 40mg IV 2 doses today -continue Eliquis 2.5mg BID -plavix 75mg -lipitor 80mg -losartan 25mg as tolerated -has not tolerated BB in past due to hypotension -aldactone 25mg -PRN nebs for COPD Consultation Date/Type/Reason Admit Date/Time Aug 26, 2018 at 08:35 Initial Consult Date 08/27/18 Type of Consult Cardiology Requesting Provider: CHERISE RICO NP Date/Time of Note DATE: 08/29/18 TIME: 09:39 24 HR Interval Summary Free Text/Dictation No events. Feels back to normal. Was able to walk around the unit several times. Objectively he still appears uncomfortable however. Cr increased from 1.3 to 1.5 with diuresis. Good UOP overnight. CXR unchanged and still with pulm edema. Exam/Review of Systems Exam Vitals Vital Signs Date Temp Pulse Resp B/P (MAP) Pulse Ox O2 O2 Flow FiO2 Time Delivery Rate 08/29/18 2.0 09:32 08/29/18 72 20 96 Nasal 09:30 Cannula 08/29/18 97.7 103/62 07:22 (76) 08/28/18 21 08:25 Intake and Output 08/28/18 08/28/18 08/29/18 1515:00 23:00 07:00 IntakeIntake Total 700 ml 240 ml OutputOutput Total 1750 ml 1200 ml BalanceBalance -1050 ml -960 ml Constitutional: alert, oriented Psych: no complaints, nl mood/affect Head: normocephalic, atraumatic Neck: jvd (8cm) Respiratory: crackles/rales (1/3 lungs ); No clear to auscultation Cardiovascular: regular rate and rhythm; No edema Gastrointestinal: soft, non-tender; No distended Neurological: nl mental status, nl speech Results Result Diagram: 08/29/18 0529 08/29/18 0529 Results 24hrs Laboratory Tests Test 08/29/18 05:29 White Blood Count 10.8 Red Blood Count 3.95 L Hemoglobin 10.8 L Hematocrit 34.6 L Mean Corpuscular Volume 87.6 Mean Corpuscular Hemoglobin 27.3 L Mean Corpuscular Hemoglobin Concent 31.2 L Red Cell Distribution Width 18.8 H Platelet Count 293 # Mean Platelet Volume 9.8 Immature Granulocytes % 0.600 H Neutrophils % 82.0 H Lymphocytes % 10.0 L Monocytes % 5.4 Eosinophils % 1.5 Basophils % 0.5 Nucleated Red Blood Cells % 0.0 Immature Granulocytes # 0.060 H Neutrophils # 8.9 H Lymphocytes # 1.1 Monocytes # 0.6 Eosinophils # 0.2 Basophils # 0.1 Nucleated Red Blood Cells # 0.0 Sodium Level 144 Potassium Level 4.2 Chloride Level 102 Carbon Dioxide Level 26 Anion Gap 16 H Blood Urea Nitrogen 31 H Creatinine 1.56 H Est Glomerular Filtrat Rate mL/min Glucose Level 153 Lactic Acid Level 1.6 Calcium Level 10.3 H Phosphorus Level 4.5 Magnesium Level 2.3 Total Bilirubin 0.9 Direct Bilirubin 0.00 Indirect Bilirubin 0.9 Aspartate Amino Transf (AST/SGOT) 25 Alanine Aminotransferase (ALT/SGPT) 19 Alkaline Phosphatase 169 H Total Protein 8.2 H Albumin 4.2 Globulin 4.00 H Albumin/Globulin Ratio 1.05 Medications Medication Current Medications IV Flush (NS 3 ml) 3 ml PER PROTOCOL IV Last administered on 08/26/18 21:43; Admin Dose 3 ML; Start 08/26/18 at 14:30 Ondansetron HCl (Zofran Inj) 4 mg Q6H PRN IV NAUSEA/VOMITING; Start 08/26/18 at 14:30 Nitroglycerin (Nitroglycerin (Sl Tab) 0.4 Mg) 1 tab Q5M PRN SL .CHEST PAIN; Start 08/26/18 at 14:30 Acetaminophen (Tylenol Tab) 650 mg Q6H PRN PO .PAIN 1-3 OR TEMP; Start 08/26/18 at 14:30 Allopurinol (Zyloprim) 300 mg DAILY PO Last administered on 08/28/18 08:14; Admin Dose 300 MG; Start 08/27/18 at 09:00 Apixaban (Eliquis) 2.5 mg BID PO Last administered on 08/28/18 20:49; Admin Dose 2.5 MG; Start 08/26/18 at 21:00 Atorvastatin Calcium (Lipitor) 80 mg QHS PO Last administered on 08/28/18 20:48; Admin Dose 80 MG; Start 08/26/18 at 21:00 Clopidogrel Bisulfate (plaVIX) 75 mg DAILY PO Last administered on 08/28/18 08:15; Admin Dose 75 MG; Start 08/27/18 at 09:00 Losartan Potassium (Cozaar) 25 mg DAILY PO ; Start 08/27/18 at 09:00 Albuterol/ Ipratropium (Duoneb) 3 ml Q2H RESP THERAPY PRN HHN SHORTNESS OF BREATH Last administered on 08/28/18 22:09; Admin Dose 3 ML; Start 08/26/18 at 16:30 Spironolactone (Aldactone) 25 mg DAILY PO Last administered on 08/28/18 08:14; Admin Dose 25 MG; Start 08/27/18 at 09:00 Thiamine HCl (Vitamin B1) 100 mg DAILY PO Last administered on 08/28/18 08:14; Admin Dose 100 MG; Start 08/28/18 at 09:00 Guaifenesin/ Dextromethorphan (Robitussin Dm Liquid Cup) 10 ml Q4H PRN PO COUGH; Start 08/27/18 at 17:30 Famotidine (Pepcid) 20 mg DAILY PO Last administered on 08/28/18at 08:15; Admin Dose 20 MG; Start 08/27/18 at 17:30 Senna/Docusate Sodium (Senokot-S) 2 tab HS PO Last administered on 08/28/18at 20:49; Admin Dose 2 TAB; Start 08/27/18 at 21:00 Albuterol/ Ipratropium (Duoneb) 3 ml Q8H RESP THERAPY HHN Last administered on 08/29/18 09:30; Admin Dose 3 ML; Start 08/28/18 at 16:00 JUANITO BENITEZ Aug 29, 2018 09:45
[2018-08-29] MEDS: THIAMINE 100 MG TAB PO SCH (10:03)
[2018-08-29] MEDS: FAMOTIDINE 20 MG TAB PO SCH (10:03)
[2018-08-29] MEDS: CLOPIDOGREL 75 MG TAB PO SCH (10:03)
[2018-08-29] MEDS: APIXABAN 5 MG TABLET PO SCH ×2 (10:04→20:29)
[2018-08-29] MEDS: LOSARTAN 25 MG TAB PO SCH (10:04)
[2018-08-29] MEDS: ALLOPURINOL 300 MG TAB PO SCH (10:04)
[2018-08-29] MEDS: SPIRONOLACTONE 25 MG TAB PO SCH (10:04)
[2018-08-29] MEDS: FUROSEMIDE 40 MG INJ IV SCH ×2 (10:10→18:58)
--- NOTE | 2018-08-29 14:49 | PN ---
Date/Time of Note Date/Time of Note DATE: 08/29/18 TIME: 14:48 Assessment/Plan VTE Prophylaxis Risk score (from Ns)>0 risk: 5 [place]CD [place] [facility] [place]CD contraindicated: low risk/ambulating Pharmacological prophylaxis: LMWH Lines/Catheters IV C[facility]ter Type (from [facility] Saline Lock Assessment/Plan Hospital Course Assessment plan 1. Dyspnea, reactive airway dz, stable cont nebulizer. Cxr negative for pneumonia; no influenza. Check procalcitonin, may not need steroids or antibi otics. 2. Acute on chronic decompensated systolic CHF, stable cont diuretics. 3. Chronic ischemic cardiomyopathy 4. Chronic paroxysmal A. fib continue Eliquis additionally 5. Chronic COPD 6. Past tobacco 7. Hypertension 8. Dyslipidemia 9. CAD ho PCI 10. PAD 11. CKD 12. Valvular heart dz; Mild to mod MR S: 08/27 cough may be white expectoration. 08/28: No events some dyspnea mostly exertional no fever 08/29: Fairly stable no distress. Chest x-ray results noted. 8 beat Vt yesterday evening O: vss PE No pallor Reg no m/r/g Dimin bs, some crackles bilat Bs+ nt nd; no r/r/g Mild edema Result Diagram: 08/29/18 0529 08/29/18 0529 Results 24hrs Laboratory Tests Test 08/29/18 05:29 White Blood Count 10.8 Red Blood Count 3.95 L Hemoglobin 10.8 L Hematocrit 34.6 L Mean Corpuscular Volume 87.6 Mean Corpuscular Hemoglobin 27.3 L Mean Corpuscular Hemoglobin Concent 31.2 L Red Cell Distribution Width 18.8 H Platelet Count 293 # Mean Platelet Volume 9.8 Immature Granulocytes % 0.600 H Neutrophils % 82.0 H Lymphocytes % 10.0 L Monocytes % 5.4 Eosinophils % 1.5 Basophils % 0.5 Nucleated Red Blood Cells % 0.0 Immature Granulocytes # 0.060 H Neutrophils # 8.9 H Lymphocytes # 1.1 Monocytes # 0.6 Eosinophils # 0.2 Basophils # 0.1 Nucleated Red Blood Cells # 0.0 Sodium Level 144 Potassium Level 4.2 Chloride Level 102 Carbon Dioxide Level 26 Anion Gap 16 H Blood Urea Nitrogen 31 H Creatinine 1.56 H Est Glomerular Filtrat Rate mL/min Glucose Level 153 Lactic Acid Level 1.6 Calcium Level 10.3 H Phosphorus Level 4.5 Magnesium Level 2.3 Total Bilirubin 0.9 Direct Bilirubin 0.00 Indirect Bilirubin 0.9 Aspartate Amino Transf (AST/SGOT) 25 Alanine Aminotransferase (ALT/SGPT) 19 Alkaline Phosphatase 169 H Total Protein 8.2 H Albumin 4.2 Globulin 4.00 H Albumin/Globulin Ratio 1.05 Exam/Review of Systems Exam Vitals Vital Signs Date Temp Pulse Resp B/P (MAP) Pulse Ox O2 O2 Flow FiO2 Time Delivery Rate 08/29/18 78 12:01 08/29/18 97.6 19 93/63 (73) 96 11:32 08/29/18 2.0 09:32 08/29/18 Nasal 09:30 Cannula 08/28/18 21 08:25 Intake and Output 08/28/18 08/28/18 08/29/18 1515:00 23:00 07:00 IntakeIntake Total 700 ml 240 ml OutputOutput Total 1750 ml 1200 ml BalanceBalance -1050 ml -960 ml Results Results 24hrs Laboratory Tests Test 08/29/18 05:29 White Blood Count 10.8 Red Blood Count 3.95 L Hemoglobin 10.8 L Hematocrit 34.6 L Mean Corpuscular Volume 87.6 Mean Corpuscular Hemoglobin 27.3 L Mean Corpuscular Hemoglobin Concent 31.2 L Red Cell Distribution Width 18.8 H Platelet Count 293 # Mean Platelet Volume 9.8 Immature Granulocytes % 0.600 H Neutrophils % 82.0 H Lymphocytes % 10.0 L Monocytes % 5.4 Eosinophils % 1.5 Basophils % 0.5 Nucleated Red Blood Cells % 0.0 Immature Granulocytes # 0.060 H Neutrophils # 8.9 H Lymphocytes # 1.1 Monocytes # 0.6 Eosinophils # 0.2 Basophils # 0.1 Nucleated Red Blood Cells # 0.0 Sodium Level 144 Potassium Level 4.2 Chloride Level 102 Carbon Dioxide Level 26 Anion Gap 16 H Blood Urea Nitrogen 31 H Creatinine 1.56 H Est Glomerular Filtrat Rate mL/min Glucose Level 153 Lactic Acid Level 1.6 Calcium Level 10.3 H Phosphorus Level 4.5 Magnesium Level 2.3 Total Bilirubin 0.9 Direct Bilirubin 0.00 Indirect Bilirubin 0.9 Aspartate Amino Transf (AST/SGOT) 25 Alanine Aminotransferase (ALT/SGPT) 19 Alkaline Phosphatase 169 H Total Protein 8.2 H Albumin 4.2 Globulin 4.00 H Albumin/Globulin Ratio 1.05 Medications Medication Current Medications IV Flush (NS 3 ml) 3 ml PER PROTOCOL IV Last administered on 08/26/18 21:43; Admin Dose 3 ML; Start 08/26/18 at 14:30 Ondansetron HCl (Zofran Inj) 4 mg Q6H PRN IV NAUSEA/VOMITING; Start 08/26/18 at 14:30 Nitroglycerin (Nitroglycerin (Sl Tab) 0.4 Mg) 1 tab Q5M PRN SL .CHEST PAIN; Start 08/26/18 at 14:30 Acetaminophen (Tylenol Tab) 650 mg Q6H PRN PO .PAIN 1-3 OR TEMP; Start 08/26/18 at 14:30 Allopurinol (Zyloprim) 300 mg DAILY PO Last administered on 08/29/18 10:04; Admin Dose 300 MG; Start 08/27/18 at 09:00 Apixaban (Eliquis) 2.5 mg BID PO Last administered on 08/29/18 10:04; Admin Dose 2.5 MG; Start 08/26/18 at 21:00 Atorvastatin Calcium (Lipitor) 80 mg QHS PO Last administered on 08/28/18 20:48; Admin Dose 80 MG; Start 08/26/18 at 21:00 Clopidogrel Bisulfate (plaVIX) 75 mg DAILY PO Last administered on 08/29/18 10:03; Admin Dose 75 MG; Start 08/27/18 at 09:00 Losartan Potassium (Cozaar) 25 mg DAILY PO Last administered on 08/29/18 10:04; Admin Dose 25 MG; Start 08/27/18 at 09:00 Albuterol/ Ipratropium (Duoneb) 3 ml Q2H RESP THERAPY PRN HHN SHORTNESS OF BREATH Last administered on 08/28/18 22:09; Admin Dose 3 ML; Start 08/26/18 at 16:30 Spironolactone (Aldactone) 25 mg DAILY PO Last administered on 08/29/18 10:04; Admin Dose 25 MG; Start 08/27/18 at 09:00 Thiamine HCl (Vitamin B1) 100 mg DAILY PO Last administered on 08/29/18 10:03; Admin Dose 100 MG; Start 08/28/18 at 09:00 Guaifenesin/ Dextromethorphan (Robitussin Dm Liquid Cup) 10 ml Q4H PRN PO COUGH; Start 08/27/18 at 17:30 Famotidine (Pepcid) 20 mg DAILY PO Last administered on 08/29/18at 10:03; Admin Dose 20 MG; Start 08/27/18 at 17:30 Senna/Docusate Sodium (Senokot-S) 2 tab HS PO Last administered on 08/28/18at 20:49; Admin Dose 2 TAB; Start 08/27/18 at 21:00 Albuterol/ Ipratropium (Duoneb) 3 ml Q8H RESP THERAPY HHN Last administered on 08/29/18 09:30; Admin Dose 3 ML; Start 08/28/18 at 16:00 Furosemide (Lasix) 40 mg BID DIURETICS IV Last administered on 08/29/18 10:10; Admin Dose 40 MG; Start 08/29/18 at 10:00; Stop 08/29/18 at 23:59 WES DAVID MD Aug 29, 2018 14:49
[2018-08-29] MEDS: ATORVASTATIN 80 MG TAB PO SCH (20:29)
[2018-08-29] MEDS: LACTOBACILLUS RHAMNOSUS CAP PO SCH (20:29)
[2018-08-29] MEDS: SENNA/DOCUSATE NA (8.6MG/50MG) TAB PO SCH (20:29)
[2018-08-30] VITALS: BP 86/53; PULSE 57; PULSE 61; RESP 18
[2018-08-30] MEDS: ALBUTEROL/IPRATROPIUM (NEB) 3 ML AMP HHN SCH ×2 (00:10→09:22)
[2018-08-30 04:00] VITALS: BP 88/54; PULSE 66; PULSE 67; RESP 18
[2018-08-30 07:06] VITALS: BP 93/50; PULSE 62; RESP 19
[2018-08-30 08:09] VITALS: PULSE 74
[2018-08-30] MEDS: FAMOTIDINE 20 MG TAB PO SCH (08:39)
[2018-08-30] MEDS: LACTOBACILLUS RHAMNOSUS CAP PO SCH (08:39)
[2018-08-30] MEDS: ALLOPURINOL 300 MG TAB PO SCH (08:39)
[2018-08-30] MEDS: APIXABAN 5 MG TABLET PO SCH (08:40)
[2018-08-30] MEDS: SPIRONOLACTONE 25 MG TAB PO SCH (08:40)
[2018-08-30] MEDS: LOSARTAN 25 MG TAB PO SCH (08:40)
[2018-08-30] MEDS: THIAMINE 100 MG TAB PO SCH (08:40)
[2018-08-30] MEDS: CLOPIDOGREL 75 MG TAB PO SCH (08:40)
--- NOTE | 2018-08-30 09:41 | CONS ---
Assessment/Plan Assessment/Plan Hospital Course (Demo Recall) Acute on chronic systolic heart failure: Decompensated by exam and CXR. Possible trigger was recent viral vs bacterial illness. Lactic acidosis now resolved after diuresis. Now euvolemic with flat JVP Chest pain: More chest wall pain which he has had in the setting of CHF exacerbation vs from subendocardial ischemia in setting of elevated EDP. Troponins negative. Stress test will be misleading in setting of multiple MIs and doubt in stent restenosis or stent occlusion. For now med management of CHF and if recurrence, will consider further workup. H/o anterior STEMI: occurred 09/16/17. s/p PCI of prox-mid LAD. Ischemic cardiomyopathy: EF 20% and unchanged from post PCI 12/04 echo at [facility] PAD: right iliac 95% seen on cath 09/03. Considering outpt revascularization. CAD: attempted PCI of [employer] of mid Cx and prox RCA by me 11/22/17 which was unsuccessful but had successful PCI 12/01/17 at [facility]. Now fully revascularized. s/p [employer] ICD 01/2018 NSVT Paroxysmal atrial fibrillation: occurred during STEMI. 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 Slightly worse with diuresis up to 1.7 which usually occurs with him in setting of diuresis and settles back to his baseline as outpt -ok for d/c. I will see him tomorrow am in the office with labs and CXR -continue same home meds -lasix 40mg PO BID unchanged home dose -continue Eliquis 2.5mg BID -plavix 75mg -lipitor 80mg -losartan 25mg as tolerated -has not tolerated BB in past due to hypotension -aldactone 25mg -PRN nebs for COPD Consultation Date/Type/Reason Admit Date/Time Aug 26, 2018 at 08:35 Initial Consult Date 08/27/18 Type of Consult Cardiology Requesting Provider: CHERISE RICO NP Date/Time of Note DATE: 08/30/18 TIME: 09:38 24 HR Interval Summary Free Text/Dictation Doing much better. No SOB. No symptoms. Cr slightly higher 1.56-->1.67-->1.72. 17 beat NSVT yesterday per report. Deleted from tele and not in chart. Exam/Review of Systems Exam Vitals Vital Signs Date Temp Pulse Resp B/P (MAP) Pulse Ox O2 O2 Flow FiO2 Time Delivery Rate 08/30/18 98 3.0 09:31 08/30/18 68 16 Nasal 09:29 Cannula 08/30/18 97.7 93/50 (64) 07:06 08/28/18 21 08:25 Intake and Output 08/29/18 08/29/18 08/30/18 1515:00 23:00 07:00 IntakeIntake Total 500 ml 120 ml OutputOutput Total 625 ml 400 ml BalanceBalance -125 ml -280 ml Constitutional: alert, oriented Psych: no complaints, nl mood/affect Head: normocephalic, atraumatic Neck: No jvd Respiratory: crackles/rales (mild on right); No clear to auscultation Cardiovascular: regular rate and rhythm; No edema, No systolic murmur Gastrointestinal: soft, non-tender Neurological: nl mental status, nl speech Results Result Diagram: 08/29/18 0529 08/30/18 0530 Results 24hrs Laboratory Tests Test 08/29/18 17:10 08/30/18 05:30 Sodium Level 139 139 Potassium Level 4.1 4.0 Chloride Level 99 100 Carbon Dioxide Level 26 27 Anion Gap 14 H 12 Blood Urea Nitrogen 35 H 42 H Creatinine 1.67 H 1.72 H Est Glomerular Filtrat Rate mL/min Glucose Level 130 128 Calcium Level 9.8 9.9 Magnesium Level 2.3 2.3 Total Bilirubin 0.6 Direct Bilirubin 0.00 Indirect Bilirubin 0.6 Aspartate Amino Transf (AST/SGOT) 26 Alanine Aminotransferase (ALT/SGPT) 16 Alkaline Phosphatase 158 H Total Protein 7.9 Albumin 4.0 Globulin 3.90 H Albumin/Globulin Ratio 1.02 Phosphorus Level 5.2 H Medications Medication Current Medications IV Flush (NS 3 ml) 3 ml PER PROTOCOL IV Last administered on 08/26/18at 21:43; Admin Dose 3 ML; Start 08/26/18 at 14:30 Ondansetron HCl (Zofran Inj) 4 mg Q6H PRN IV NAUSEA/VOMITING; Start 08/26/18 at 14:30 Nitroglycerin (Nitroglycerin (Sl Tab) 0.4 Mg) 1 tab Q5M PRN SL .CHEST PAIN; Start 08/26/18 at 14:30 Acetaminophen (Tylenol Tab) 650 mg Q6H PRN PO .PAIN 1-3 OR TEMP; Start 08/26/18 at 14:30 Allopurinol (Zyloprim) 300 mg DAILY PO Last administered on 08/30/18 08:39; Admin Dose 300 MG; Start 08/27/18 at 09:00 Apixaban (Eliquis) 2.5 mg BID PO Last administered on 08/30/18 08:40; Admin Dose 2.5 MG; Start 08/26/18 at 21:00 Atorvastatin Calcium (Lipitor) 80 mg QHS PO Last administered on 08/29/18 20:29; Admin Dose 80 MG; Start 08/26/18 at 21:00 Clopidogrel Bisulfate (plaVIX) 75 mg DAILY PO Last administered on 08/30/18 08:40; Admin Dose 75 MG; Start 08/27/18 at 09:00 Losartan Potassium (Cozaar) 25 mg DAILY PO Last administered on 08/30/18 08:40; Admin Dose 25 MG; Start 08/27/18 at 09:00 Albuterol/ Ipratropium (Duoneb) 3 ml Q2H RESP THERAPY PRN HHN SHORTNESS OF BREATH Last administered on 08/28/18 22:09; Admin Dose 3 ML; Start 08/26/18 at 16:30 Spironolactone (Aldactone) 25 mg DAILY PO Last administered on 08/30/18 08:40; Admin Dose 25 MG; Start 08/27/18 at 09:00 Thiamine HCl (Vitamin B1) 100 mg DAILY PO Last administered on 08/30/18 08:40; Admin Dose 100 MG; Start 08/28/18 at 09:00 Guaifenesin/ Dextromethorphan (Robitussin Dm Liquid Cup) 10 ml Q4H PRN PO COUGH; Start 08/27/18 at 17:30 Famotidine (Pepcid) 20 mg DAILY PO Last administered on 08/30/18 08:39; Admin Dose 20 MG; Start 08/27/18 at 17:30 Senna/Docusate Sodium (Senokot-S) 2 tab HS PO Last administered on 08/29/18 20:29; Admin Dose 2 TAB; Start 3/11/19 at 21:00 Albuterol/ Ipratropium (Duoneb) 3 ml Q8H RESP THERAPY HHN Last administered on 08/30/18at 09:22; Admin Dose 3 ML; Start 08/28/18 at 16:00 Lactobacillus Acidophilus/ Rhamnosus (Culturelle) 1 cap BID PO Last administered on 08/30/18at 08:39; Admin Dose 1 CAP; Start 08/29/18 at 21:00 JUANITO BENITEZ Aug 30, 2018 09:41
[2018-08-30] MEDS ORDERED: ALBU8.5H8 INH (10:07)
[2018-08-30] MEDS ORDERED: GUAI120S26 PO (10:07)
[2018-08-30] MEDS ORDERED: ACET325T33 PO (10:07)
[2018-08-30] MEDS ORDERED: THIA100T56 PO (10:07)
[2018-08-30] MEDS ORDERED: SPIR25TA PO (10:07)
[2018-08-30] MEDS ORDERED: SENOKOTS PO (10:07)
[2018-08-30] MEDS ORDERED: LACT1CAP28 PO (10:07)
--- NOTE | 2018-08-30 11:17 | PDOCDIS ---
Discharge Instructions CONDITION [id number] Patient Condition: [id number] Stable HOME CARE INSTRUCTIONS: [id number] Diet Instructions: [id number] Low Fat /Cholesterol (low salt) ACTIVITY: [id number] Activity Restrictions: [id number] Slowly Increase Activity Do not Drive FOLLOW UP/APPOINTMENTS Follow-up Plan Dr Lara 1wk PCP 1wk WES DAVID MD Aug 30, 2018 11:17
--- NOTE | 2018-08-30 11:17 | DS ---
Date/Time of Note Date/Time of Note DATE: 08/30/18 TIME: 11:14 Discharge Summary Admission/Discharge Info Admit Date/Time Aug 26, 2018 at 08:35 Discharge Date/Time Patient Condition: Stable Consults Dr Lara Procedures Chest x-ray #2 08/29 IMPRESSION: Mildly increased interstitial edema suggesting cardiopulmonary congestion. Moderate right and minimal left pleural effusions are similar in appearance. 2D echo Conclusions: Normal left ventricular wall thickness. Mild enlargement of left ventricle cavity. Severe global left ventricular systolic dysfunction with some regional variation and slightly better basal contraction. Ejection fraction is visually estimated at 20 %. Tissue Doppler/Mitral Doppler indices are consistent with restrictive physiology with markedly elevated left atrial pressure (Stage III-IV diastolic dysfunction). Moderate mitral valve regurgitation. Aortic sclerosis without significant stenosis. Mild aortic valve regurgitation. Moderate to severe tricuspid regurgitation. Linear artifact in right ventricle due to ICD lead. Severe pulmonary HTN with estimated peak PA systolic pressure 74 mmHg based on RA pressure of 8 mmHg. Electronically Signed By: Kishan Lara Hx of Present Illness 73-year-old gentleman admitted with shortness of breath Hospital Course Hospitalist coverage/hospital course Assessment plan 1. Dyspnea, reactive airway dz, stable cont as needed albuterol, supportive care. Cxr negative for pneumonia; no influenza. for discharge on supportive care. 2. Acute on chronic decompensated systolic CHF, stable cont diuretics/home medications. Did not tolerate beta-amauri in the past.. 3. Chronic ischemic cardiomyopathy: Needs advanced care planning reevaluated 4. Chronic paroxysmal A. fib continue Eliquis additionally 5. Chronic COPD 6. Past tobacco 7. Hypertension 8. Dyslipidemia 9. CAD ho PCI 10. PAD 11. CKD, creatinine about 1.8 today. A little above the baseline however stable. Patient will have his labs checked may be in a week. 12. Valvular heart dz; Mild to mod MR S: 08/27 cough may be white expectoration. 08/28: No events some dyspnea mostly exertional no fever 08/29: Fairly stable no distress. Chest x-ray results noted. 8 beat Vt yesterday evening 08/30: No distress Home Meds Active Scripts Albuterol Sulfate* (Proair HFA*) 8.5 Gm Hfa.aer.ad, 2 PUFF INH Q6H PRN for WH EEZING AND SOB, #1 INHALER 2 Refills Prov:WES DAVID MD 08/30/18 Thiamine* (Vitamin B-1*) 100 Mg Tablet, 100 MG PO DAILY for 30 Days, #30 TAB 1 Refill Prov:WES DAVID MD 08/30/18 Sennosides/Docusate Sodium (Dok Plus Tablet) 1 Each Tablet, 2 TAB PO HS for 5 Days, #10 TAB Prov:WES DAVID MD 08/30/18 Lactobacillus Rhamnosus GG (Culturelle) 1 Each Capsule, 1 CAP PO BID for 5 Days, #10 CAP Prov:WES DAVID MD 08/30/18 Igaeyurxjcy-U-Clfejvxdcx Hb* (Guaifenesin* DM Syrup) 120 Ml Syrup, 10 ML PO Q4H PRN for COUGH for 1 Day Prov:WES DAVID MD 08/30/18 Acetaminophen* (Tylenol*) 325 Mg Tablet, 650 MG PO Q6H PRN for .PAIN 1-3 OR TEMP for 1 Day, TAB Prov:WES DAVID MD 08/30/18 Spironolactone* (Aldactone*) 25 Mg Tablet, 25 MG PO DAILY for 15 Days, #1 TAB Prov:WES DAVID MD 08/30/18 Reported Medications Allopurinol* (Allopurinol*) 300 Mg Tablet, 300 MG PO DAILY, TAB 08/26/18 Potassium Chloride* (K-Dur*) 10 Meq Tab.prt.sr, 10 MEQ PO DAILY, TAB 08/26/18 Furosemide* (Furosemide*) 40 Mg Tablet, 40 MG PO BID, TAB 08/26/18 Atorvastatin* (Atorvastatin*) 80 Mg Tablet, 80 MG PO QHS, #30 TAB 08/26/18 Losartan Potassium* (Losartan Potassium*) 25 Mg Tablet, 25 MG PO DAILY, TAB 08/26/18 Apixaban* (Eliquis*) 2.5 Mg Tablet, 2.5 MG PO BID, TAB 08/26/18 Clopidogrel Bisulfate* (Clopidogrel Bisulfate*) 75 Mg Tablet, 75 MG PO DAILY, #30 TAB 08/26/18 Discontinued Scripts Potassium Chloride* (Klor-Con*) 20 Meq Tabsr, 20 MEQ PO DAILY for 30 Days, TAB Prov:OLENA DRAKE MD 11/28/17 Bumetanide* (Bumetanide*) 1 Mg Tablet, 1 MG PO TID, #90 TAB Prov:OLENA DRAKE MD 11/28/17 Atorvastatin* (Atorvastatin*) 80 Mg Tablet, 80 MG PO HS, #30 TAB Prov:SOFIYA CARR 10/15/17 Clopidogrel Bisulfate (Clopidogrel) 75 Mg Tablet, 75 MG PO DAILY for 60 Days, #60 TAB 5 Refills Prov:SOFIYA CARR 10/15/17 Apixaban* (Eliquis*) 5 Mg Tablet, 2.5 MG PO BID for 30 Days, #60 TAB Prov:SOFIYA CARR 18 Primary Care Provider Kishan Lara Time spent on discharge: > 30 minutes Pending Labs Laboratory Tests Test 08/29/18 17:10 08/30/18 05:30 Sodium Level 139 mmol/L (135-144) 139 mmol/L (135-144) Potassium Level 4.1 mmol/L (3.5-5.1) 4.0 mmol/L (3.5-5.1) Chloride Level 99 mmol/L (97-110) 100 mmol/L (97-110) Carbon Dioxide Level 26 mmol/L (21-31) 27 mmol/L (21-31) Anion Gap 14 (5-13) 12 (5-13) Blood Urea Nitrogen 35 mg/dl (7-20) 42 mg/dl (7-20) Creatinine 1.67 mg/dl (0.61-1.24) 1.72 mg/dl (0.61-1.24) Est Glomerular Filtrat mL/min (>60) mL/min (>60) Rate mL/min Glucose Level 130 mg/dl (70-220) 128 mg/dl (70-220) Calcium Level 9.8 mg/dl (8.4-10.2) 9.9 mg/dl (8.4-10.2) Magnesium Level 2.3 mg/dl (1.7-2.5) 2.3 mg/dl (1.7-2.5) Total Bilirubin 0.6 mg/dl (0.2-1.3) Direct Bilirubin 0.00 mg/dl (0.00-0.20) Indirect Bilirubin 0.6 mg/dl (0-1.1) Aspartate Amino 26 IU/L (15-46) Transf (AST/SGOT) Alanine 16 IU/L (13-69) Aminotransferase (ALT/SGPT) Alkaline Phosphatase 158 IU/L (42-121) Total Protein 7.9 g/dl (6.1-8.1) Albumin 4.0 g/dl (3.3-4.9) Globulin 3.90 g/dl (1.3-3.2) Albumin/Globulin Ratio 1.02 Phosphorus Level 5.2 mg/dl (2.5-4.9) WES DAVID MD Aug 30, 2018 11:17
[2018-08-30 11:51] VITALS: BP 83/50; PULSE 72; RESP 19
[2018-08-30 12:18] VITALS: PULSE 72
== END 2018-08-30 12:50 | disposition home or self-care (01) | DRG 291 ==
LOC: E/R 04:55 → 6WM 08:35
PROVIDERS: ADMIT Internal Medicine; ATTEND Internal Medicine
DX: I13.0 Hypertensive heart and chronic kidney disease with heart failure and stage 1 through stage 4 chronic kidney disease, or unspecified chronic kidney disease (principal); I50.23 Acute on chronic systolic (congestive) heart failure; J96.10 Chronic respiratory failure, unspecified whether with hypoxia or hypercapnia; I48.0 Paroxysmal atrial fibrillation; N18.9 Chronic kidney disease, unspecified; I25.10 Atherosclerotic heart disease of native coronary artery without angina pectoris; I25.2 Old myocardial infarction; J44.9 Chronic obstructive pulmonary disease, unspecified; M10.9 Gout, unspecified; I73.9 Peripheral vascular disease, unspecified; I34.0 Nonrheumatic mitral (valve) insufficiency; E78.5 Hyperlipidemia, unspecified; I25.5 Ischemic cardiomyopathy; Z95.5 Presence of coronary angioplasty implant and graft; Z79.01 Long term (current) use of anticoagulants; Z87.891 Personal history of nicotine dependence; Z95.810 Presence of automatic (implantable) cardiac defibrillator
CPT/HCPCS: 36415; 71045; 80048; 80053; 80061; 82550; 82553; 83036; 83605; 83690; 83735; 83880; 84100; 84145; 84439; 84443; 84484; 85025; 85610; 85730; 87400; 93005; 93306; 94640; 94664; J1940; J7040

== ENCOUNTER 2018-09-01 17:39 | Emergency (ER) | payer MEDICARE, OTHER ==
[~2018-09-01] VITALS: Ht 165.1 cm; Wt 63.6 kg
[~2018-09-01 17:39] MED LIST changes: +ACET325T33 PO; +ALBU8.5H8 INH; +ALLO300T2 PO; +APIX2.5T PO; -APIX5TAB PO; -BUME1TAB PO; +CLOP75TA19 PO; -CLOP75TA28 PO; +FURO40TA4 PO; +GUAI120S26 PO; +LACT1CAP28 PO; +LOSA25TA12 PO; -POTA-57 PO; +POTA10TA37 PO; +SENOKOTS PO; +SPIR25TA PO; +THIA100T56 PO
[2018-09-01] MEDS ORDERED: ONDANSETRON 4 MG INJ IV STA (17:45)
[2018-09-01] MEDS ORDERED: morphine 4 MG/ML VIAL IV STA (17:45)
[2018-09-01] MEDS ORDERED: SOD CHLORIDE 0.9% 500 ML IV STA (17:45)
[2018-09-01 17:51] VITALS: Ht 165.1 cm; Wt 63.6 kg
--- NOTE | 2018-09-01 18:10 | ERD ---
ER Documentation Chief Complaint Chief Complaint ap x 4 hours. no n/v/d HPI 73-year-old gentleman who presents to the emergency room complaining of epigastric and right upper quadrant abdominal pain for the past 4 hours. Pain is mild at this time without associated chest pain or pressure or shortness of breath nausea vomiting or diarrhea. No fevers or chills, travel sick contacts or antibiotics. During the patient's encounter translation services were utilized Language: [Aremenian] Source: [in person] ROS All systems reviewed and are negative except as per history of present illness. Medications Home Meds Active Scripts Tramadol HCl (Tramadol HCl) 50 Mg Tablet, 50 MG PO BID PRN for PAIN, #8 TAB Prov:CLEO CEDENO MD 09/01/18 Albuterol Sulfate* (Proair HFA*) 8.5 Gm Hfa.aer.ad, 2 PUFF INH Q6H PRN for WHEEZING AND SOB, #1 INHALER 2 Refills Prov:WES DAVID MD 08/30/18 Thiamine* (Vitamin B-1*) 100 Mg Tablet, 100 MG PO DAILY for 30 Days, #30 TAB 1 Refill Prov:WES DAVID MD 08/30/18 Sennosides/Docusate Sodium (Dok Plus Tablet) 1 Each Tablet, 2 TAB PO HS for 5 Days, #10 TAB Prov:WES DAVID MD 08/30/18 Lactobacillus Rhamnosus GG (Culturelle) 1 Each Capsule, 1 CAP PO BID for 5 Days, #10 CAP Prov:WES DAVID MD 08/30/18 Bqvzvpmulfq-Y-Ydpkyktgdr Hb* (Guaifenesin* DM Syrup) 120 Ml Syrup, 10 ML PO Q4H PRN for COUGH for 1 Day Prov:WES DAVID MD 08/30/18 Acetaminophen* (Tylenol*) 325 Mg Tablet, 650 MG PO Q6H PRN for .PAIN 1-3 OR TEMP for 1 Day, TAB Prov:WES DAVID MD 08/30/18 Spironolactone* (Aldactone*) 25 Mg Tablet, 25 MG PO DAILY for 15 Days, #1 TAB Prov:WES DAVID MD 08/30/18 Reported Medications Allopurinol* (Allopurinol*) 300 Mg Tablet, 300 MG PO DAILY, TAB 08/26/18 Potassium Chloride* (K-Dur*) 10 Meq Tab.prt.sr, 10 MEQ PO DAILY, TAB 08/26/18 Furosemide* (Furosemide*) 40 Mg Tablet, 40 MG PO BID, TAB 08/26/18 Atorvastatin* (Atorvastatin*) 80 Mg Tablet, 80 MG PO QHS, #30 TAB 08/26/18 Losartan Potassium* (Losartan Potassium*) 25 Mg Tablet, 25 MG PO DAILY, TAB 08/26/18 Apixaban* (Eliquis*) 2.5 Mg Tablet, 2.5 MG PO BID, TAB 08/26/18 Clopidogrel Bisulfate* (Clopidogrel Bisulfate*) 75 Mg Tablet, 75 MG PO DAILY, #30 TAB 08/26/18 Discontinued Scripts Potassium Chloride* (Klor-Con*) 20 Meq Tabsr, 20 MEQ PO DAILY for 30 Days, TAB Prov:OLENA DRAKE MD 11/28/17 Bumetanide* (Bumetanide*) 1 Mg Tablet, 1 MG PO TID, #90 TAB Prov:OLENA DRAKE MD 11/28/17 Atorvastatin* (Atorvastatin*) 80 Mg Tablet, 80 MG PO HS, #30 TAB Prov:SOFIYA CARR 10/15/17 Clopidogrel Bisulfate (Clopidogrel) 75 Mg Tablet, 75 MG PO DAILY for 60 Days, #60 TAB 5 Refills Prov:SOFIYA CARR 10/15/17 Apixaban* (Eliquis*) 5 Mg Tablet, 2.5 MG PO BID for 30 Days, #60 TAB Prov:SOFIYA CARR 10/15/17 Allergies Allergies: Coded Allergies: No Known Allergy (Unverified , 09/01/18) PMhx/Soc History of Surgery: Yes (Angioplasty) Anesthesia Reaction: No Hx Neurological Disorder: No Hx Respiratory Disorders: Yes (COPD; pulmonary edema) Hx Cardiac Disorders: Yes (stents, CHF, Afib, Pacemeaker, PAD, Ischemic Cardiomyopathy) Hx Psychiatric Problems: No Hx Miscellaneous Medical Probl: Yes Hx Alcohol Use: No Hx Substance Use: No Smoking Status: Former smoker FmHx Family History: No diabetes Physical Exam Vitals Vital Signs Date Temp Pulse Resp B/P (MAP) Pulse Ox O2 O2 Flow FiO2 Time Delivery Rate 09/01/18 97.8 90 20 123/70 95 17:51 (87) Physical Exam General: Well developed, well nourished, no acute distress Head: Normocephalic, atraumatic. Eyes: Pupils equally reactive, EOM intact ENT: Moist mucous membranes Neck: Supple, no lymphadenopathy Respiratory: Lungs clear bilaterally, no distress Cardiovascular: RRR, no murmurs, rubs, or gallops Abdominal: Soft, very mild and consistent epigastric and right upper quadrant abdominal tenderness, negative Braun sign, no tenderness to McBurney's point : Deferred MSK: No edema, no unilateral swelling, 5/5 strength Neurologic: Alert and oriented, moving all extremities, normal speech, no focal weakness, no cerebellar signs Skin: No rash Psych: Normal mood Result Diagram: 09/01/18182109/01/181821 Results 24 hrs Laboratory Tests Test 09/01/18 18:22 White Blood Count 11.6 10^3/ul Red Blood Count 3.98 10^6/ul Hemoglobin 10.7 g/dl Hematocrit 35.1 % Mean Corpuscular Volume 88.2 fl Mean Corpuscular Hemoglobin 26.9 pg Mean Corpuscular Hemoglobin Concent 30.5 g/dl Red Cell Distribution Width 18.1 % Platelet Count 310 10^3/UL Mean Platelet Volume 9.9 fl Immature Granulocytes % 0.500 % Neutrophils % 87.0 % Lymphocytes % 7.7 % Monocytes % 4.1 % Eosinophils % 0.4 % Basophils % 0.3 % Nucleated Red Blood Cells % 0.0 /100WBC Immature Granulocytes # 0.060 10^3/ul Neutrophils # 10.1 10^3/ul Lymphocytes # 0.9 10^3/ul Monocytes # 0.5 10^3/ul Eosinophils # 0.1 10^3/ul Basophils # 0.0 10^3/ul Nucleated Red Blood Cells # 0.0 10^3/ul Sodium Level 136 mmol/L Potassium Level 4.5 mmol/L Chloride Level 102 mmol/L Carbon Dioxide Level 20 mmol/L Anion Gap 14 Blood Urea Nitrogen 60 mg/dl Creatinine 1.69 mg/dl Est Glomerular Filtrat Rate mL/min mL/min Glucose Level 169 mg/dl Calcium Level 9.8 mg/dl Total Bilirubin 0.4 mg/dl Direct Bilirubin 0.00 mg/dl Indirect Bilirubin 0.4 mg/dl Aspartate Amino Transf (AST/SGOT) 72 IU/L Alanine Aminotransferase (ALT/SGPT) 37 IU/L Alkaline Phosphatase 218 IU/L Troponin I 0.017 ng/ml Total Protein 8.3 g/dl Albumin 4.2 g/dl Globulin 4.10 g/dl Albumin/Globulin Ratio 1.02 Lipase 74 U/L Current Medications Medications Dose Sig/Nicole Start Time Status Last (Trade) Ordered Route PRN Stop Time Admin Dose Reason Admin Sodium 500 ml @ Q1H STAT 09/01/18 DC Chloride 500 mls/hr IV 17:45 09/01/18 17:57 Morphine 4 mg ONCE STAT 09/01/18 DC 09/01/18 Sulfate IV 17:45 18:06 (morphine) 09/01/18 17:46 Ondansetron 4 mg ONCE STAT 09/01/18 DC 09/01/18 HCl (Zofran IV 17:45 18:06 Inj) 09/01/18 17:46 Procedures/MDM EKG, MONITORS, & DIAGNOSTIC IMAGING: EKG: I reviewed and interpreted a 12-lead EKG. Rhythm: Normal sinus rhythm ST Changes: No contiguous ST segment elevations T waves: No contiguous T wave inversions, however slightly hyperacute in the precordial leads possibly consistent with LVH Impression: Abnormal EKG Chest x-ray: Chest x-ray: I reviewed and interpreted a 1 view of the chest Mediastinum: No enlargement Cardiac silhouette: cardiomegaly Airspace: Mild interstitial process consistent with pulmonary edema but improved from prior study Bones: No evidence of fracture CT abdomen pelvis: IMPRESSION: 1. No abdominal or pelvic acute inflammatory process, mass, or lymphadenopathy. 2. Cholelithiasis. 3. Moderate aortoiliac atherosclerosis. 4. Cardiomegaly with moderate congestion and small bilateral pleural effusions with atelectasis. RPTAT: QQ Ultrasound gallbladder: IMPRESSION: 1. Cholelithiasis with mildly distended gallbladder. If there is concern for acute cholecystitis, consider HIDA scan. 2. Prominent CBD. If there is concern for cholestasis, consider correlation with bilirubin levels and MRCP. 3. Small 1.1 cm hypoechoic structure adjacent to the liver, likely representing a small nonspecific peritoneal lymph node. 4. Small right pleural effusion noted. LAB INTERPRETATION: I reviewed the laboratory testing and it shows very slight leukocytosis of 11 possibly secondary to pain response. Creatinine 1.69 improved from baseline, negative troponin, nonobstructive hepatobiliary pattern MEDICAL DECISION MAKING: Patient presents with epigastric and right upper quadrant abdominal pain. Broad differential exists including gastritis, peptic ulcer disease, hepatobiliary process such as biliary colic or acute cholecystitis. Low concern for appendicitis. The patient does have a history of cardiac disease but this is not seem to be consistent with acute coronary syndrome. Patient wants laboratory testing and advanced imaging including CT and ultrasound. ER COURSE: * I spoke to the patient's it senior software engineer java per family request. He agrees with the workup and plan of care. * Patient was given pain control medication * The patient's pain is much improved. His laboratory testing and diagnostic imaging show likely biliary colic as the cause. The patient has no evidence of persistent pain. Repeat abdominal exam is benign. Patient has no fever. Only white count of 11. The patient has a nonobstructive hepatobiliary pattern. For this reason I do not believe that inpatient hospital station is necessary. The family was informed that the patient may eventually require cholecystectomy. Return precautions for fever, jaundice, uncontrolled pain. * I spoke to the patient's it senior software engineer java regarding the patient's pulmonary edema. This appears to be improved. Negative troponin. He feels comfortable following up with the patient on Monday. CONSULTATION: Cardiology: Dr. Lara DISPOSITION PLAN: The patient does not have an identifiable emergent medical condition that warrants inpatient hospitalization at this time. The patient is deemed safe for discharge with outpatient follow-up. We discussed follow up with the patient's primary care doctor within 24 to 48 hours as needed. We also discussed return to the emergency room for worsening symptoms or worsening condition. Outpatient referral: [facility] Discharge Medications: Tramadol. Patient and family were informed of the strong effects of tramadol. He needs to be supervised when taking this medication. He tolerated morphine while here therefore should tolerate this medication well on an outpatient basis. Departure Diagnosis: Primary Impression: Biliary colic Additional Impressions: History of CHF (congestive heart failure) Chronic renal insufficiency Chronic kidney disease stage: unspecified stage Qualified Codes: N18.9 - Chronic kidney disease, unspecified Condition: Stable CLEO CEDENO MD Sep 01, 2018 18:10
[2018-09-01] MEDS ORDERED: TRAM50TA2 PO (19:29)
[2018-09-01 19:55] VITALS: BP 113/70; PULSE 88; RESP 23
== END 2018-09-01 19:58 | disposition home or self-care (01) ==
LOC: E/R 17:39
DX: K80.20 Calculus of gallbladder without cholecystitis without obstruction (principal); J44.9 Chronic obstructive pulmonary disease, unspecified; I50.9 Heart failure, unspecified; N18.9 Chronic kidney disease, unspecified; Z79.01 Long term (current) use of anticoagulants; Z87.891 Personal history of nicotine dependence; Z95.0 Presence of cardiac pacemaker; Z98.61 Coronary angioplasty status
CPT/HCPCS: 71045; 74176; 76705; 80053; 83690; 84484; 85025; 93005; 96374; 96375; 99285; J2270; J2405; J7040

== ENCOUNTER 2019-01-13 14:51 | Inpatient (IN) | payer MEDICARE, OTHER ==
[~2019-01-13] VITALS: Ht 162.6 cm; Wt 48.4 kg
[~2019-01-13 14:51] MED LIST changes: +ALBU18HF INHALATION; +BUME1TAB PO; +ERGO500013 PO; +FER325 PO; +GUAI120S25 PO; -GUAI120S26 PO; +TIOT4MIS4 INHALATION; +TRAM50TA2 PO
[2019-01-13] MEDS ORDERED: IPRATROPIUM (NEB) 0.5 MG/2.5 ML AMP INH STA (14:55)
[2019-01-13] MEDS ORDERED: ALBUTEROL 0.083% (NEB) 2.5 MG/3 ML AMP INH STA (14:55)
[2019-01-13] MEDS ORDERED: ONDANSETRON 4 MG INJ IV PRN ×2 (17:00→18:30)
[2019-01-13] MEDS ORDERED: ACETAMINOPHEN 325 MG TAB PO PRN ×2 (17:00→18:30)
[2019-01-13] MEDS ORDERED: MAGNESIUM HYDROXIDE 30ML CUP PO PRN (18:30)
[2019-01-13] MEDS ORDERED: DOCUSATE SODIUM 100 MG CAP PO PRN (18:30)
[2019-01-13] MEDS ORDERED: NITROGLYCERIN (SL) 0.4 MG TAB SL PRN (18:30)
[2019-01-13] MEDS ORDERED: LORAZEPAM 2 MG INJ IV PRN (18:30)
[2019-01-13] MEDS ORDERED: NACL 0.9% 3 ML SYG IV SCH (18:30)
--- NOTE | 2019-01-13 18:30 | HP ---
Date/Time of Note Date/Time of Note DATE: 01/13/19 TIME: 18:11 Assessment/Plan VTE Prophylaxis SCD applied (from Nsg): Yes Pharmacological prophylaxis: apixaban Lines/Catheters IV Catheter Type (from Nrsg): Saline Lock Assessment/Plan Assessment/Plan 1. Acute on chronic systolic heart failure - BNP noted - Cardiology consulted for diuretic recommendations. Patient follows with Dr. Lara as outpatient and Bumex recently changed to TID per family - CXR noted with central congestion - Monitor I/O and daily weights - Will increase dose of bumex for now until evaluation by Cardiology - ECHO from 08/2018 noted with EF 20% and significant pulmonary HTN 2. SILVESTRE on CKD - Nephrology, Dr. Garvin, consulted for recommendations given patient needs to be on diuretics - Will check renal ultrasound to rule out medical disease or obstruction - recently given diuretics so urine electrolytes wont be accurate - avoid nephrotoxic agents 3. Pulmonary HTN - noted on recent ECHO and most likely contributing to SOB - Supplemental O2 - Will start Sildenafil - pulmonary consultation placed 4. Anemia of chronic disease - stable 5. COPD - continue home bronchodilators - PRN nebs - no exacerbation noted 6. Atrial fibrillation - continue home medications - rate controlled - on Eliquis 7. PAD - on Plavix 8. AICD 9. Diet - Cardiac 10. Disposition - admit to telemetry for treatment of acute shortness of breath secondary to exacerbation of systolic heart failure as well as pulmonary hypertension. Result Diagram: 01/13/19 1506 01/13/19 1506 Results 24hrs Laboratory Tests Test 01/13/19 15:06 01/13/19 15:55 01/13/19 15:57 White Blood Count 5.9 # Red Blood Count 3.82 L Hemoglobin 10.1 L Hematocrit 32.9 L Mean Corpuscular Volume 86.1 Mean Corpuscular Hemoglobin 26.4 L Mean Corpuscular 30.7 L Hemoglobin Concent Red Cell Distribution Width 17.2 H Platelet Count 183 # Mean Platelet Volume 10.2 Immature Granulocytes % 0.300 Neutrophils % 67.5 Lymphocytes % 20.7 Monocytes % 9.0 Eosinophils % 2.0 Basophils % 0.5 Nucleated Red Blood Cells % 0.0 Immature Granulocytes # 0.020 Neutrophils # 4.0 Lymphocytes # 1.2 Monocytes # 0.5 Eosinophils # 0.1 Basophils # 0.0 Nucleated Red Blood Cells # 0.0 Prothrombin Time 20.9 H Prothrombin Time Ratio 1.6 INR International 1.79 Normalized Ratio Activated 42.7 H Partial Thromboplast Time Sodium Level 141 Potassium Level 3.8 Chloride Level 108 Carbon Dioxide Level 19 L Anion Gap 14 H Blood Urea Nitrogen 45 H Creatinine 1.55 H Est Glomerular Filtrat Rate mL/min Glucose Level 127 Calcium Level 9.6 Total Bilirubin 0.9 Direct Bilirubin 0.00 Indirect Bilirubin 0.9 Aspartate Amino 43 Transf (AST/SGOT) Alanine 32 Aminotransferase (ALT/SGPT) Alkaline Phosphatase 138 H Troponin I 0.015 B-Type Natriuretic Peptide 58303 H Total Protein 7.7 Albumin 3.9 Globulin 3.80 H Albumin/Globulin Ratio 1.02 POC Venous Lactate 2.8 *H Blood Gas Specimen Source Blood arterial Arterial Blood Date Drawn 01/13/2019 3:58:58 PM Arterial Blood pH 7.477 H (Temp corrected) Arterial Blood pCO2 25.8 L (Temp correct) Arterial Blood pO2 148.5 H (Temp corrected) Arterial Blood HCO3 18.7 L Arterial Blood Base Excess -3.6 L Arterial Blood 98.8 Oxygen Saturation Robert Test ACCEPTAB Arterial Blood Gas Right Radial Puncture Site Arterial 0.4 Blood Carboxyhemoglobin Arterial Blood Methemoglobin 0.3 Blood Gas A-a O2 200.6 H Differential Oxyhemoglobin Percent 98.1 Blood Gas Temperature 37.0 Blood Gas Modality MASK - SIMPLE FiO2 53.0 Blood Gas Notified Whom M.Cynthia Blood Gas Notified Time 01/13/2019 4:10:42 PM HPI/ROS Admit Date/Time Admit Date/Time 01/13/19 Hx of Present Illness 73 yo M with PMH Systolic heart failure with AICD in place, CAD s/p PCI, atrial fibrillation, peripheral artery disease, CKD, COPD, and pulmonary hypertension presented to ED with worsening shortness of breath and lower extremity swelling for the past 2 days. Patient appears short of breath and history obtained from daughter in law at bedside. Patient was seen by his Order Packer and diuretics were increased to TID. Per patient, has been urinating often but still experiencing SOB and pedal edema. Admits to feet feeling cold and discomfort diaphragm area, but denies any fevers, chills, nausea, vomiting, chest pain, coughing, wheezing, dizziness, abdominal pain, constipation, diarrhea, or urinary symptoms. ROS All 12 systems reviewed and pertinent positives as per HPI. All others negative. Constitutional: chills; No fatigue, No nausea Eyes: No discharge ENT: No congestion Respiratory: pleuritic pain, shortness of breath; No cough, No sputum, No wheezing Cardiovascular: edema; No chest pain, No lightheadedness, No palpitations Gastrointestinal: No blood, No constipation, No diarrhea, No nausea, No vomiting Genitourinary: no complaints Musculoskeletal: no complaints Skin: No laceration, No rash Neurologic: no complaints Endocrine: no complaints Lymphatic: no complaints Psychological: nl mood/affect Immunologic: no complaints PMH/Family/Social Past Medical History Medical History: congestive heart failure, coronary artery disease, renal disease, other (COPD, pulmonary HTN, atrial fibrillation, ) Medications Current Medications Ondansetron HCl (Zofran Inj) 4 mg ER BRIDGE PRN IV NAUSEA/VOMITING; Start 01/13/19 at 17:00; Stop 01/14/19 at 16:59 Acetaminophen (Tylenol Tab) 650 mg ER BRIDGE PRN PO .MILD PAIN 1-3 OR TEMP; Start 01/13/19 at 17:00; Stop 01/14/19 at 16:59 Apixaban (Eliquis) 2.5 mg BID PO ; Start 01/13/19 at 21:00; Status UNV Atorvastatin Calcium (Lipitor) 80 mg QHS PO ; Start 01/13/19 at 21:00; Status UNV Clopidogrel Bisulfate (plaVIX) 75 mg DAILY PO ; Start 01/14/19 at 09:00; Status UNV Ferrous Sulfate (Ferrous Sulfate (Ec)) 325 mg DAILY PO ; Start 01/14/19 at 09:00; Status UNV Losartan Potassium (Cozaar) 25 mg DAILY PO ; Start 01/14/19 at 09:00; Status UNV Albuterol (Proventil 0.083% (Neb)) 2.5 mg Q2H RESP THERAPY PRN HHN SHORTNESS OF BREATH; Start 01/13/19 at 18:30; Status UNV Bumetanide (Bumex) 2 mg BID DIURETICS IV ; Start 01/14/19 at 06:00; Status UNV Fluticasone/ Vilanterol (Breo Ellipta 100-25 Mcg Inh) 1 inh DAILY INH ; Start 01/14/19 at 09:00; Status UNV IV Flush (NS 3 ml) 3 ml PER PROTOCOL IV ; Start 01/13/19 at 18:30; Status UNV Lorazepam (Ativan) 0.5 mg Q6H PRN IV .ANXIETY; Start 01/13/19 at 18:30; Status UNV Ondansetron HCl (Zofran Inj) 4 mg Q6H PRN IV NAUSEA/VOMITING; Start 01/13/19 at 18:30; Status UNV Nitroglycerin (Nitroglycerin (Sl Tab) 0.4 Mg) 1 tab Q5M PRN SL .CHEST PAIN; Start 01/13/19 at 18:30; Status UNV Acetaminophen (Tylenol Tab) 650 mg Q6H PRN PO .PAIN 1-3 OR TEMP; Start 01/13/19 at 18:30; Status UNV Docusate Sodium (Colace) 100 mg Q12H PRN PO .CONSTIPATION; Start 01/13/19 at 18:30; Status UNV Magnesium Hydroxide (Milk Of Mag) 30 ml DAILY PRN PO .CONSTIPATION; Start 01/13/19 at 18:30; Status UNV Coded Allergies: No Known Allergy (Unverified , 01/13/19) Past Surgical History Past Surgical Hx: angioplasty, other Family History Significant Family History: no pertinent family hx Social History Alcohol Use: none Smoking Status: Former smoker Drug Use: none Exam/Review of Systems Vital Signs Vitals Vital Signs Date Temp Pulse Resp B/P (MAP) Pulse Ox O2 O2 Flow FiO2 Time Delivery Rate 01/13/19 81 20 94 Nasal 2.0 15:54 Cannula 01/13/19 97.4 129/57 15:03 (81) Exam Exam General: Patient is a pleasant males, accessory muscle use, mild respiratory distress HEENT: Atraumatic, normocephalic. The pupils are equal, round and reactive. Extraocular motor are intact Neck: Supple with full range of motion. No rigidity or meningismus Chest: nontender, AICD appreciated Lungs: Diminished, mild crackles at bases, no wheezing, accessory muscle use Heart: S1, S2, regular rate and rhythm. no murmurs Abdomen: Soft , nontender, nondistended , bowel sounds are present. No guarding no rebound tenderness , No masses or organomegaly. No costovertebral temporal angle mass Extremities: pedal edema, Left with 2+, Right with trace edema. no cyanosis or clubbing Skin: no rashes or lesions appreciated Neurologic: Normal mental status, speech normal, cranial nerves II through XII are intact, motor and sensory are intact, no focal weakness Additional Comments Home medications reviewed PROCEDURE: XR Chest. CLINICAL INDICATION: Shortness of breath TECHNIQUE: Frontal chest x-ray was obtained. COMPARISON: Chest x-ray September 28, 2018 FINDINGS: Again noted is a dual lead pacemaker. There is cardiomegaly. Mediastinum is not widened. No hilar mass is present. There are increased perihilar bronchovascular markings and increased in terstitial markings in the lower lung field. Noted is confluent consolidation in the right lower lobe with a small to moderate-sized right pleural effusion and tiny left pleural effusion. No pneumothorax is present. The osseous structures appear normal. IMPRESSION: Cardiomegaly. Central pulmonary vascular congestion. Right lower lobe infiltrate with effusion. Question failure versus pneumonia. .Oswaldo Bar MD, MD Date Time Electronically viewed and signed by .Oswaldo Bar MD, MD on 01/13/2019 16:07 IDA PERAZA MD Jan 13, 2019 18:29
--- NOTE | 2019-01-13 18:55 | CONS ---
Assessment/Plan Assessment/Plan Assessment/Plan (Daily) 1. Acute kidney injury on CKD III due to Hemodynamics from CHF 2. acute on chronic Systolic HF with EF 20% 3. Severe pulmonary HTN 4. Ischemic CM with EF 20% s/p PCI in 11/2017 at [facility] 5. H/o CAD - attempted PCI of [employer] of mid Cx and prox RCA by me 11/22/17 which was unsuccessful but had successful PCI 12/01/17 at [facility]. Now fully revascularized. 5. H/o Paroxysmal atrial fibrillation s/p AICD placement 6. H/o Chronic respiratory failur from COPD on home oxygen Plan: seen in ED, Bumex 2 mg IV BID, if neded we will change it to 2mg IV Q 8hr Full CKD work up done as outpatient, Renal US showed medical renal disease, no hydronephrosis Will follow up Thanks for consultation Consultation Date/Type/Reason Admit Date/Time 01/13/19 Date of Consultation: Jan 13, 2019 Type of Consult NEPHROLOGY Reason for Consultation acute on chronic renal failure, CHF Requesting Provider: IDA PERAZA MD Date/Time of Note DATE: 01/13/19 TIME: 18:55 Hx of Present Illness 73 yo M with PMHx of CAD, CHF, pulm HTN, COPD, CKD. He presented with one week of increasing dyspnea, orthopnea, PND, edema similar to his prior exacerbations. I last spoke with his son in evaluation of inguinal hernia about 3 weeks ago and he was doing well. pt has been using bumex 1 mg pO TID since last one week due to LE edema and SOB but no relief On admisison BUN/Cr 45/1.55, Renal Has been consulted for acute on chronic renal failure Constitutional: no complaints Eyes: no complaints ENT: no complaints Respiratory: cough, pleuritic pain, shortness of breath; No no complaints, No pain, No sputum, No wheezing, No other Gastrointestinal: no complaints, decreased appetite Genitourinary: no complaints Musculoskeletal: no complaints Skin: no complaints Neurologic: no complaints Endocrine: no complaints Lymphatic: no complaints Psychological: no complaints Immunologic: no complaints Past Medical History Medical History: congestive heart failure, coronary artery disease, renal disease, other (COPD, pulmonary HTN, atrial fibrillation, ) Home Meds Reported Medications Ergocalciferol (Vitamin D2) (VITAMIN D2) 50,000 Unit Capsule, 76120 UNIT PO ONCE A WEEK, CAP 01/13/19 Ferrous Sulfate* (Ferrous Sulfate*) 325 Mg Tabec, 325 MG PO DAILY, TAB 01/13/19 Tiotropium Br/Olodaterol HCl (Stiolto Respimat Inhal [place]) 4 Gm Mist.inhal, 2 PUFF INHALATION DAILY, #1 INHALER 01/13/19 Albuterol Sulfate* (Ventolin HFA*) 18 Gm Hfa.aer.ad, 2 PUFF INHALATION Q4H, #1 INHALER 01/13/19 Bumetanide* (Bumetanide*) 1 Mg Tablet, 1 MG PO BID, TAB 01/13/19 Allopurinol* (Allopurinol*) 300 Mg Tablet, 300 MG PO DAILY, TAB 08/26/18 Potassium Chloride* (K-Dur*) 10 Meq Tab.prt.sr, 10 MEQ PO DAILY, TAB 08/26/18 Atorvastatin* (Atorvastatin*) 80 Mg Tablet, 80 MG PO QHS, #30 TAB 08/26/18 Losartan Potassium* (Losartan Potassium*) 25 Mg Tablet, 25 MG PO DAILY, TAB 08/26/18 Apixaban* (Eliquis*) 2.5 Mg Tablet, 2.5 MG PO BID, TAB 08/26/18 Clopidogrel Bisulfate* (Clopidogrel Bisulfate*) 75 Mg Tablet, 75 MG PO DAILY, #30 TAB 08/26/18 Discontinued Reported Medications Furosemide* (Furosemide*) 40 Mg Tablet, 40 MG PO BID, TAB 08/26/18 Discontinued Scripts Tramadol HCl (Tramadol HCl) 50 Mg Tablet, 50 MG PO BID PRN for PAIN, #8 TAB Prov:CLEO CEDENO MD 09/01/18 Albuterol Sulfate* (Proair HFA*) 8.5 Gm Hfa.aer.ad, 2 PUFF INH Q6H PRN for WHEEZING AND SOB, #1 INHALER 2 Refills Prov:WES DAVID MD 08/30/18 Thiamine* (Vitamin B-1*) 100 Mg Tablet, 100 MG PO DAILY for 30 Days, #30 TAB 1 Refill Prov:WES DAVID MD 08/30/18 Sennosides/Docusate Sodium (Dok Plus Tablet) 1 Each Tablet, 2 TAB PO HS for 5 Days, #10 TAB Prov:WES DAVID MD 08/30/18 Lactobacillus Rhamnosus GG (Culturelle) 1 Each Capsule, 1 CAP PO BID for 5 Days, #10 CAP Prov:WES DAVID MD 08/30/18 Ofcgzaagbos-A-Wtojaiigao Hb* (Guaifenesin* DM Syrup) 120 Ml Syrup, 10 ML PO Q4H PRN for COUGH for 1 Day Prov:EWS DAVID MD 08/30/18 Acetaminophen* (Tylenol*) 325 Mg Tablet, 650 MG PO Q6H PRN for .PAIN 1-3 OR TEMP for 1 Day, TAB Prov:WES DAVID MD 08/30/18 Spironolactone* (Aldactone*) 25 Mg Tablet, 25 MG PO DAILY for 15 Days, #1 TAB Prov:WES DAVID MD 08/30/18 Medications Current Medications Apixaban (Eliquis) 2.5 mg BID PO ; Start 01/13/19 at 21:00 Atorvastatin Calcium (Lipitor) 80 mg QHS PO ; Start 01/13/19 at 21:00 Clopidogrel Bisulfate (plaVIX) 75 mg DAILY PO ; Start 01/14/19 at 09:00 Ferrous Sulfate (Ferrous Sulfate (Ec)) 325 mg DAILY PO ; Start 01/14/19 at 09:00 Losartan Potassium (Cozaar) 25 mg DAILY PO ; Start 01/14/19 at 09:00 Albuterol (Proventil 0.083% (Neb)) 2.5 mg Q2H RESP THERAPY PRN HHN SHORTNESS OF BREATH; Start 01/13/19 at 18:30 Fluticasone/ Vilanterol (Breo Ellipta 100-25 Mcg Inh) 1 inh DAILY INH ; Start 01/14/19 at 09:00 IV Flush (NS 3 ml) 3 ml PER PROTOCOL IV ; Start 01/13/19 at 18:30 Lorazepam (Ativan) 0.5 mg Q6H PRN IV .ANXIETY; Start 01/13/19 at 18:30 Ondansetron HCl (Zofran Inj) 4 mg Q6H PRN IV NAUSEA/VOMITING; Start 01/13/19 at 18:30 Nitroglycerin (Nitroglycerin (Sl Tab) 0.4 Mg) 1 tab Q5M PRN SL .CHEST PAIN; Start 01/13/19 at 18:30 Acetaminophen (Tylenol Tab) 650 mg Q6H PRN PO .PAIN 1-3 OR TEMP; Start 01/13/19 at 18:30 Docusate Sodium (Colace) 100 mg Q12H PRN PO .CONSTIPATION; Start 01/13/19 at 18:30 Magnesium Hydroxide (Milk Of Mag) 30 ml DAILY PRN PO .CONSTIPATION; Start 01/13/19 at 18:30 Bumetanide 2 mg/ Dextrose 25 ml @ 50 mls/hr 0600,1800 IV ; Start 01/14/19 at 06:00 Sildenafil Citrate (Revatio) 20 mg TID PO ; Start 01/13/19 at 21:00 Allergies: Coded Allergies: No Known Allergy (Unverified , 01/13/19) Past Surgical History Past Surgical Hx: angioplasty, other Social History Alcohol Use: none Smoking Status: Former smoker Drug Use: none Exam/Review of Systems Exam Vitals Vital Signs Date Temp Pulse Resp B/P (MAP) Pulse Ox O2 O2 Flow FiO2 Time Delivery Rate 01/13/19 81 20 94 Nasal 2.0 15:54 Cannula 01/13/19 97.4 129/57 15:03 (81) Exam Constitutional: alert, oriented Psych: nl mood/affect Head: normocephalic, atraumatic Neck: jvd (at angle of jaw) Respiratory: BIlatearl crackles upto midlung Cardiovascular: regular rate and rhythm, SM + on exam Gastrointestinal: soft, non-tender; ND, BS+ Neurological: nl mental status, nl speech Results Result Diagram: 01/13/19 1506 01/13/19 1506 Results 24hrs Laboratory Tests Test 01/13/19 15:06 01/13/19 15:55 01/13/19 15:57 01/13/19 18:29 White Blood Count 5.9 # Red Blood Count 3.82 L Hemoglobin 10.1 L Hematocrit 32.9 L Mean Corpuscular 86.1 Volume Mean Corpuscular 26.4 L Hemoglobin Mean Corpuscular 30.7 L Hemoglobin Concen t Red Cell 17.2 H Distribution Width Platelet Count 183 # Mean Platelet 10.2 Volume Immature 0.300 Granulocytes % Neutrophils % 67.5 Lymphocytes % 20.7 Monocytes % 9.0 Eosinophils % 2.0 Basophils % 0.5 Nucleated Red 0.0 Blood Cells % Immature 0.020 Granulocytes # Neutrophils # 4.0 Lymphocytes # 1.2 Monocytes # 0.5 Eosinophils # 0.1 Basophils # 0.0 Nucleated Red 0.0 Blood Cells # Prothrombin Time 20.9 H Prothrombin Time 1.6 Ratio INR International 1.79 Normalized Ratio Activated 42.7 H Partial Thrombopl ast Time Sodium Level 141 Potassium Level 3.8 Chloride Level 108 Carbon Dioxide 19 L Level Anion Gap 14 H Blood Urea 45 H Nitrogen Creatinine 1.55 H Est Glomerular Filtrat Rate mL/min Glucose Level 127 Calcium Level 9.6 Total Bilirubin 0.9 Direct Bilirubin 0.00 Indirect 0.9 Bilirubin Aspartate Amino 43 Transf (AST/SGOT) Alanine 32 Aminotransferase (ALT/SGPT) Alkaline 138 H Phosphatase Troponin I 0.015 B-Type 42093 H Natriuretic Peptide Total Protein 7.7 Albumin 3.9 Globulin 3.80 H Albumin/Globulin 1.02 Ratio POC Venous 2.8 *H Lactate Blood Gas Blood arterial Specimen Source Arterial Blood 01/13/2019 3:58:5 Date Drawn 8 PM Arterial Blood pH 7.477 H (Temp corrected) Arterial Blood 25.8 L pCO2 (Temp correct) Arterial Blood 148.5 H pO2 (Temp corrected) Arterial Blood 18.7 L HCO3 Arterial Blood -3.6 L Base Excess Arterial Blood 98.8 Oxygen Saturation Robert Test ACCEPTAB Arterial Blood Right Radial Gas Puncture Site Arterial 0.4 Blood Carboxyhemo globin Arterial Blood 0.3 Methemoglobin Blood Gas A-a O2 200.6 H Differential Oxyhemoglobin 98.1 Percent Blood Gas 37.0 Temperature Blood Gas MASK - SIMPLE Modality FiO2 53.0 Blood Gas M.D. Notified Whom Blood Gas 01/13/2019 4:10:4 Notified Time 2 PM Lactic Acid Level 2.9 *H Medications Medication Current Medications Apixaban (Eliquis) 2.5 mg BID PO ; Start 01/13/19 at 21:00 Atorvastatin Calcium (Lipitor) 80 mg QHS PO ; Start 01/13/19 at 21:00 Clopidogrel Bisulfate (plaVIX) 75 mg DAILY PO ; Start 01/14/19 at 09:00 Ferrous Sulfate (Ferrous Sulfate (Ec)) 325 mg DAILY PO ; Start 01/14/19 at 09:00 Losartan Potassium (Cozaar) 25 mg DAILY PO ; Start 01/14/19 at 09:00 Albuterol (Proventil 0.083% (Neb)) 2.5 mg Q2H RESP THERAPY PRN HHN SHORTNESS OF BREATH; Start 01/13/19 at 18:30 Fluticasone/ Vilanterol (Breo Ellipta 100-25 Mcg Inh) 1 inh DAILY INH ; Start 01/14/19 at 09:00 IV Flush (NS 3 ml) 3 ml PER PROTOCOL IV ; Start 01/13/19 at 18:30 Lorazepam (Ativan) 0.5 mg Q6H PRN IV .ANXIETY; Start 01/13/19 at 18:30 Ondansetron HCl (Zofran Inj) 4 mg Q6H PRN IV NAUSEA/VOMITING; Start 01/13/19 at 18:30 Nitroglycerin (Nitroglycerin (Sl Tab) 0.4 Mg) 1 tab Q5M PRN SL .CHEST PAIN; Start 01/13/19 at 18:30 Acetaminophen (Tylenol Tab) 650 mg Q6H PRN PO .PAIN 1-3 OR TEMP; Start 01/13/19 at 18:30 Docusate Sodium (Colace) 100 mg Q12H PRN PO .CONSTIPATION; Start 01/13/19 at 18:30 Magnesium Hydroxide (Milk Of Mag) 30 ml DAILY PRN PO .CONSTIPATION; Start 01/13/19 at 18:30 Bumetanide 2 mg/ Dextrose 25 ml @ 50 mls/hr 0600,1800 IV ; Start 01/14/19 at 06:00 Sildenafil Citrate (Revatio) 20 mg TID PO ; Start 01/13/19 at 21:00 DYLAN LUGO MD Jan 13, 2019 18:55
--- NOTE | 2019-01-13 19:00 | ERD ---
ER Documentation Chief Complaint Chief Complaint SOB X 5 DAYS. HX CHF AND ASTHMA HPI 73-year-old male with shortness of breath x5 days. History of CHF and asthma. Patient's feels that his ankles have been swollen as well. Denies any fevers or chills. Denies any chest pain. Denies any other current complaints. ROS All systems reviewed and are negative except as per history of present illness. Medications Home Meds Reported Medications Ergocalciferol (Vitamin D2) (VITAMIN D2) 50,000 Unit Capsule, 41837 UNIT PO ONCE A WEEK, CAP 01/13/19 Ferrous Sulfate* (Ferrous Sulfate*) 325 Mg Tabec, 325 MG PO DAILY, TAB 01/13/19 Tiotropium Br/Olodaterol HCl (Stiolto Respimat Inhal Walker) 4 Gm Mist.inhal, 2 PUFF INHALATION DAILY, #1 INHALER 01/13/19 Albuterol Sulfate* (Ventolin HFA*) 18 Gm Hfa.aer.ad, 2 PUFF INHALATION Q4H, #1 INHALER 01/13/19 Bumetanide* (Bumetanide*) 1 Mg Tablet, 1 MG PO BID, TAB 01/13/19 Allopurinol* (Allopurinol*) 300 Mg Tablet, 300 MG PO DAILY, TAB 08/26/18 Potassium Chloride* (K-Dur*) 10 Meq Tab.prt.sr, 10 MEQ PO DAILY, TAB 08/26/18 Atorvastatin* (Atorvastatin*) 80 Mg Tablet, 80 MG PO QHS, #30 TAB 08/26/18 Losartan Potassium* (Losartan Potassium*) 25 Mg Tablet, 25 MG PO DAILY, TAB 08/26/18 Apixaban* (Eliquis*) 2.5 Mg Tablet, 2.5 MG PO BID, TAB 08/26/18 Clopidogrel Bisulfate* (Clopidogrel Bisulfate*) 75 Mg Tablet, 75 MG PO DAILY, #30 TAB 08/26/18 Discontinued Reported Medications Furosemide* (Furosemide*) 40 Mg Tablet, 40 MG PO BID, TAB 08/26/18 Discontinued Scripts Tramadol HCl (Tramadol HCl) 50 Mg Tablet, 50 MG PO BID PRN for PAIN, #8 TAB Prov:CLEO CEDEON MD 09/01/18 Albuterol Sulfate* (Proair HFA*) 8.5 Gm Hfa.aer.ad, 2 PUFF INH Q6H PRN for WHEEZING AND SOB, #1 INHALER 2 Refills Prov:WES DAVID MD 08/30/18 Thiamine* (Vitamin B-1*) 100 Mg Tablet, 100 MG PO DAILY for 30 Days, #30 TAB 1 Refill Prov:WES DAVID MD 08/30/18 Sennosides/Docusate Sodium (Dok Plus Tablet) 1 Each Tablet, 2 TAB PO HS for 5 Days, #10 TAB Prov:WES DAVID MD 08/30/18 Lactobacillus Rhamnosus GG (Culturelle) 1 Each Capsule, 1 CAP PO BID for 5 Days, #10 CAP Prov:WES DAVID MD 08/30/18 Gcusmwhxbrt-F-Gxirmmzadi Hb* (Guaifenesin* DM Syrup) 120 Ml Syrup, 10 ML PO Q4H PRN for COUGH for 1 Day Prov:WES DAVID MD 08/30/18 Acetaminophen* (Tylenol*) 325 Mg Tablet, 650 MG PO Q6H PRN for .PAIN 1-3 OR TEMP for 1 Day, TAB Prov:WES DAVID MD 08/30/18 Spironolactone* (Aldactone*) 25 Mg Tablet, 25 MG PO DAILY for 15 Days, #1 TAB Prov:WES DAVID MD 08/30/18 Allergies Allergies: Coded Allergies: No Known Allergy (Unverified , 01/13/19) PMhx/Soc History of Surgery: Yes (Angioplasty) Anesthesia Reaction: No Hx Neurological Disorder: No Hx Respiratory Disorders: Yes (COPD; pulmonary edema) Hx Cardiac Disorders: Yes (stents, CHF, Afib, Pacemeaker, PAD, Ischemic Cardiomyopathy) Hx Psychiatric Problems: No Hx Miscellaneous Medical Probl: Yes Hx Alcohol Use: No Hx Substance Use: No Hx Tobacco Use: Yes (former smoker) Smoking Status: Former smoker Physical Exam Vitals Vital Signs Date Temp Pulse Resp B/P (MAP) Pulse Ox O2 O2 Flow FiO2 Time Delivery Rate 01/13/19 81 20 94 Nasal 2.0 15:54 Cannula 01/13/19 Nasal 2.0 15:03 Cannula 01/13/19 Nasal 2 15:03 Cannula 01/13/19 97.4 71 28 129/57 96 15:03 (81) Physical Exam Const: No acute distress Head: Atraumatic Eyes: Normal Conjunctiva ENT: Normal External Ears, Nose and Mouth. Neck: Full range of motion. No meningismus. Resp: Clear to auscultation bilaterally Cardio: Regular rate and rhythm, no murmurs Abd: Soft, non tender, non distended. Normal bowel sounds Skin: No petechiae or rashes Back: No midline or flank tenderness Ext: No cyanosis, or edema Neur: Awake and alert Psych: Normal Mood and Affect Result Diagram: 01/13/19 1506 01/13/19 1506 Results 24 hrs Laboratory Tests Test 01/13/19 15:06 01/13/19 15:55 01/13/19 15:57 01/13/19 18:29 White Blood 5.9 10^3/ul Count Red Blood Count 3.82 10^6/ul Hemoglobin 10.1 g/dl Hematocrit 32.9 % Mean Corpuscular 86.1 fl Volume Mean Corpuscular 26.4 pg Hemoglobin Mean Corpuscular 30.7 g/dl Hemoglobin Lore nt Red Cell 17.2 % Distribution Width Platelet Count 183 10^3/UL Mean Platelet 10.2 fl Volume Immature 0.300 % Granulocytes % Neutrophils % 67.5 % Lymphocytes % 20.7 % Monocytes % 9.0 % Eosinophils % 2.0 % Basophils % 0.5 % Nucleated Red 0.0 /100WBC Blood Cells % Immature 0.020 10^3/ul Granulocytes # Neutrophils # 4.0 10^3/ul Lymphocytes # 1.2 10^3/ul Monocytes # 0.5 10^3/ul Eosinophils # 0.1 10^3/ul Basophils # 0.0 10^3/ul Nucleated Red 0.0 10^3/ul Blood Cells # Prothrombin Time 20.9 Sec Prothrombin Time 1.6 Ratio INR 1.79 International Normalized Ratio Activated 42.7 Sec Partial Thrombop last Time Sodium Level 141 mmol/L Potassium Level 3.8 mmol/L Chloride Level 108 mmol/L Carbon Dioxide 19 mmol/L Level Anion Gap 14 Blood Urea 45 mg/dl Nitrogen Creatinine 1.55 mg/dl Est Glomerular mL/min Filtrat Rate mL/min Glucose Level 127 mg/dl Calcium Level 9.6 mg/dl Total Bilirubin 0.9 mg/dl Direct Bilirubin 0.00 mg/dl Indirect 0.9 mg/dl Bilirubin Aspartate Amino 43 IU/L Transf (AST/SGOT ) Alanine 32 IU/L Aminotransferase (ALT/SGPT) Alkaline 138 IU/L Phosphatase Troponin I 0.015 ng/ml B-Type 41474 PG/ML Natriuretic Peptide Total Protein 7.7 g/dl Albumin 3.9 g/dl Globulin 3.80 g/dl Albumin/Globulin 1.02 Ratio POC Venous 2.8 mmol/L Lactate Blood Gas Blood arterial Specimen Source Arterial Blood 01/13/2019 3:58:5 Date Drawn 8 PM Arterial Blood 7.477 pH (Temp corrected) Arterial Blood 25.8 mmhg pCO2 (Temp correct) Arterial Blood 148.5 mmHG pO2 (Temp corrected) Arterial Blood 18.7 mmol/L HCO3 Arterial Blood -3.6 mmol/L Base Excess Arterial Blood 98.8 mmHG Oxygen Saturatio n Robert Test ACCEPTAB Arterial Blood Right Radial Gas Puncture Site Arterial 0.4 % Blood Carboxyhem oglobin Arterial Blood 0.3 % Methemoglobin Blood Gas A-a O2 200.6 mmHg Differential Oxyhemoglobin 98.1 % Percent Blood Gas 37.0 C Temperature Blood Gas MASK - SIMPLE Modality FiO2 53.0 % Blood Gas M.D. Notified Whom Blood Gas 01/13/2019 4:10:4 Notified Time 2 PM Lactic Acid 2.9 mmol/L Level Current Medications Medications Dose Sig/Nicole Start Time Status Last (Trade) Ordered Route PRN Stop Time Admin Dose Reason Admin Albuterol 5 mg ONCE STAT 01/13/19 DC 01/13/19 (Proventil INH 14:55 15:52 0.083% (Neb)) 01/13/19 14:56 Ipratropium 0.5 mg ONCE STAT 01/13/19 DC 01/13/19 [place] INH 14:55 15:51 (Atrovent 01/13/19 14:56 0.02% (Neb)) Ondansetron 4 mg ER BRIDGE 01/13/19 DC HCl (Zofran PRN IV 17:00 Inj) NAUSEA/VOMITI 01/13/19 18:13 NG 650 mg ER BRIDGE 01/13/19 DC Acetaminophen PRN PO 17:00 (Tylenol .MILD PAIN 01/13/19 18:13 Tab) 1-3 OR TEMP Apixaban 2.5 mg BID PO 01/13/19 (Eliquis) 21:00 80 mg QHS PO 01/13/19 Atorvastatin 21:00 Calcium (Lipitor) Clopidogrel 75 mg DAILY PO 01/14/19 Bisulfate 09:00 (plaVIX) Ferrous 325 mg DAILY PO 01/14/19 Sulfate 09:00 (Ferrous Sulfate (Ec)) Losartan 25 mg DAILY PO 01/14/19 Potassium 09:00 (Cozaar) Albuterol 2.5 mg Q2H RESP 01/13/19 (Proventil THERAPY PRN 18:30 0.083% (Neb)) HHN SHORTNESS OF BREATH Bumetanide 2 mg BID 01/14/19 DC (Bumex) DIURETICS 06:00 IV 01/14/19 06:00 1 inh DAILY INH 01/14/19 Fluticasone/ 09:00 Vilanterol (Breo Ellipta 100-25 Mcg Inh) IV Flush 3 ml PER 01/13/19 (NS 3 ml) PROTOCOL IV 18:30 Lorazepam 0.5 mg Q6H PRN 01/13/19 (Ativan) IV .ANXIETY 18:30 Ondansetron 4 mg Q6H PRN 01/13/19 HCl (Zofran IV 18:30 Inj) NAUSEA/VOMITI NG 1 tab Q5M PRN 01/13/19 Nitroglycerin SL .CHEST 18:30 PAIN (Nitroglyceri n (Sl Tab) 0.4 Mg) 650 mg Q6H PRN 01/13/19 Acetaminophen PO .PAIN 1-3 18:30 (Tylenol OR TEMP Tab) Docusate 100 mg Q12H PRN 01/13/19 Sodium PO 18:30 (Colace) .CONSTIPATION Magnesium 30 ml DAILY PRN 01/13/19 Hydroxide PO 18:30 (Milk Of Mag) .CONSTIPATION Bumetanide 2 25 ml @ 50 0600,1800 01/14/19 mg/ Dextrose mls/hr IV 06:00 Sildenafil 20 mg TID PO 01/13/19 Citrate 21:00 (Revatio) Procedures/MDM EKG: Rate/Rhythm: [Normal Sinus Rhythm] QRS, ST, T-waves: [No changes consistent w/ acute ischemia] Impression: [No evidence of ischemia or arrhythmia] Chest X-ray 1V Interpreted by me: Soft Tissue: No acute abnormalities Bones: No acute abnormalities Mediastinum/Cardiac Silhouette/Lungs: [No acute abnormalities] Medical decision make: 73-year-old male comes with combination of respiratory failure secondary to CHF and COPD. He does have an elevated lactic acid, however given his history of CHF he we would not treat this for sepsis. I also doubt sepsis given that is likely secondary to chronic respiratory hypoxia. At this point patient will be admitted to telemetry to Dr. Ulrich who has kindly accepted the patient to her service Departure Diagnosis: Primary Impression: COPD (chronic obstructive pulmonary disease) COPD type: unspecified COPD Qualified Codes: J44.9 - Chronic obstructive pulmonary disease, unspecified Additional Impression: CHF (congestive heart failure) Heart failure type: unspecified Heart failure chronicity: unspecified Qualified Codes: I50.9 - Heart failure, unspecified Condition: Serious JAMILA MURILLO Jan 13, 2019 19:00
[2019-01-13 20:00] VITALS: Ht 162.6 cm; Wt 48.4 kg
[2019-01-13 20:05] VITALS: BP 108/67; PULSE 84; RESP 20
[2019-01-13] MEDS ORDERED: SILDENAFIL 20 MG TAB PO SCH (21:00)
[2019-01-13] MEDS: APIXABAN 5 MG TABLET PO SCH (21:11)
[2019-01-13] MEDS: ATORVASTATIN 80 MG TAB PO SCH (21:11)
[2019-01-13] MEDS ORDERED: BUMETANIDE 1 MG INJ IV ONE (22:00)
[2019-01-13] MEDS ORDERED: BUMETANIDE 2 MG in DEXTROSE 5% 17 ML IV ONE (23:00)
[2019-01-14 00:23] VITALS: BP 94/57; PULSE 70; RESP 20
[2019-01-14 03:57] VITALS: BP 89/55; PULSE 71; RESP 20
[2019-01-14] MEDS ORDERED: BUMETANIDE 1 MG INJ IV SCH (06:00)
[2019-01-14] MEDS: BUMETANIDE 2 MG in DEXTROSE 5% 17 ML IV SCH ×2 (06:08→17:31)
[2019-01-14 07:14] VITALS: BP 99/57; PULSE 74; RESP 18
[2019-01-14] MEDS: FLUTICASONE/VILANTEROL 100-25 INH SCH (08:29)
[2019-01-14] MEDS: CLOPIDOGREL 75 MG TAB PO SCH (08:30)
[2019-01-14] MEDS: FERROUS SULFATE (EC) 325 MG TAB PO SCH (08:30)
[2019-01-14] MEDS: APIXABAN 5 MG TABLET PO SCH ×2 (08:30→22:26)
[2019-01-14] MEDS ORDERED: LOSARTAN 25 MG TAB PO SCH (09:00)
[2019-01-14] MEDS ORDERED: POTASSIUM CHLORIDE (SR) 20 MEQ TAB PO STA (09:12)
--- NOTE | 2019-01-14 09:54 | PN ---
Date/Time of Note Date/Time of Note DATE: 01/14/19 TIME: 09:53 Objective Vitals Vital Signs Date Temp Pulse Resp B/P (MAP) Pulse Ox O2 O2 Flow FiO2 Time Delivery Rate 01/14/19 97.5 74 18 99/57 (71) 94 07:14 01/14/19 Nasal 03:57 Cannula 01/13/19 2.0 20:00 Intake and Output 01/13/19 01/13/19 01/14/19 1515:00 23:00 07:00 IntakeIntake Total 530 ml OutputOutput Total 400 ml BalanceBalance 130 ml Results Result Diagram: 01/14/19 0440 01/14/19 0440 Medications Medications Current Medications Apixaban (Eliquis) 2.5 mg BID PO Last administered on 01/14/19at 08:30; Admin Dose 2.5 MG; Start 01/13/19 at 21:00 Atorvastatin Calcium (Lipitor) 80 mg QHS PO Last administered on 01/13/19at 21:11; Admin Dose 80 MG; Start 01/13/19 at 21:00 Clopidogrel Bisulfate (plaVIX) 75 mg DAILY PO Last administered on 01/14/19at 08:30; Admin Dose 75 MG; Start 01/14/19 at 09:00 Ferrous Sulfate (Ferrous Sulfate (Ec)) 325 mg DAILY PO Last administered on 01/14/19at 08:30; Admin Dose 325 MG; Start 01/14/19 at 09:00 Losartan Potassium (Cozaar) 25 mg DAILY PO ; Start 01/14/19 at 09:00 Albuterol (Proventil 0.083% (Neb)) 2.5 mg Q2H RESP THERAPY PRN HHN SHORTNESS OF BREATH; Start 01/13/19 at 18:30 Fluticasone/ Vilanterol (Breo Ellipta 100-25 Mcg Inh) 1 inh DAILY INH Last administered on 01/14/19at 08:29; Admin Dose 1 INH; Start 01/14/19 at 09:00 IV Flush (NS 3 ml) 3 ml PER PROTOCOL IV ; Start 01/13/19 at 18:30 Lorazepam (Ativan) 0.5 mg Q6H PRN IV .ANXIETY; Start 01/13/19 at 18:30 Ondansetron HCl (Zofran Inj) 4 mg Q6H PRN IV NAUSEA/VOMITING; Start 01/13/19 at 18:30 Nitroglycerin (Nitroglycerin (Sl Tab) 0.4 Mg) 1 tab Q5M PRN SL .CHEST PAIN; Start 01/13/19 at 18:30 Acetaminophen (Tylenol Tab) 650 mg Q6H PRN PO .PAIN 1-3 OR TEMP; Start 01/13/19 at 18:30 Docusate Sodium (Colace) 100 mg Q12H PRN PO .CONSTIPATION; Start 01/13/19 at 18:30 Magnesium Hydroxide (Milk Of Mag) 30 ml DAILY PRN PO .CONSTIPATION; Start 01/13/19 at 18:30 Bumetanide 2 mg/ Dextrose 25 ml @ 50 mls/hr 0600,1800 IV Last administered on 01/14/19at 06:08; Admin Dose 50 MLS/HR; Start 01/14/19 at 06:00 Sildenafil Citrate (Revatio) 20 mg TID PO Last administered on 01/13/19at 23:15; Admin Dose 20 MG; Start 01/13/19 at 21:00 Cefepime HCl 50 ml @ 100 mls/hr Q12 IVPB ; Start 01/14/19 at 09:30 VTE Prophylaxis Risk score (from Ns)>0 risk: 4 SCD applied (from [facility] [place]): Yes Lines/Catheters IV Catheter Type: Trent in Place: No Assessment/Plan Hospital Course Subjective Patient feeling much better than when he came in Objective Physical exam General: Patient is laying in bed and answers questions appropriately Mentation: Patient is alert and oriented 4, Head: Normocephalic atraumatic Eyes: EOMI, pupils reactive to light Neck: Supple, nontender, midline Respiratory: Coarse to auscultation bilaterally Cardiovascular: regular rate, no obvious murmurs Gastrointestinal: non-tender to palpation, bowel sounds heard. Neurological: Moves all extremities spontaneously Skin: No new skin lesions Assessment/Plan 1. Acute on chronic systolic heart failure - BNP noted - Cardiology consulted for diuretic recommendations. Patient follows with Dr. Lara as outpatient and Bumex recently changed to TID per family - CXR noted with central congestion - Monitor I/O and daily weights - Will increase dose of bumex for now until evaluation by Cardiology - ECHO from 08/2018 noted with EF 20% and significant pulmonary HTN 2. SILVESTRE on CKD - Nephrology, Dr. Garvin, consulted for recommendations given patient needs to be on diuretics -Ultrasound noted - recently given diuretics so urine electrolytes wont be accurate - avoid nephrotoxic agents 3. Pulmonary HTN - noted on recent ECHO and most likely contributing to SOB - Supplemental O2 - Will start Sildenafil if okay with pulmonology and cardiology - pulmonary consultation placed 4. Anemia of chronic disease - stable 5. COPD - continue home bronchodilators - PRN nebs - no exacerbation noted 6. Atrial fibrillation - continue home medications - rate controlled - on Eliquis 7. PAD - on Plavix 8. AICD 9. Diet - Cardiac 10. 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 CASSY SAUNDERS Jan 14, 2019 09:54
[2019-01-14 11:34] VITALS: BP 90/57; PULSE 81; RESP 18
--- NOTE | 2019-01-14 11:49 | CONS ---
Assessment/Plan Assessment/Plan Hospital Course (Demo Recall) Acute on chronic systolic heart failure: Decompensated again by exam, symptoms. Unclear trigger this time Acute on chronic renal failure: Cr has fluctuated and as high as 2 before. Outpt baseline is ~1.2-1.6 when stable. Lactic acidosis: due to hypoperfusion secondary to ADHF. Improved Severe pulmonary HTN: PAP as high as 85 mmHg recently but closer to 70mmHg when compensated. Likely combination of heart failure and intrinsic lung disease H/o anterior STEMI: occurred 09/16/17. s/p PCI of prox-mid LAD. Ischemic cardiomyopathy: EF 20% and unchanged from post PCI 12/04 echo at [facility] PAD: right iliac 95% seen on cath 09/03. Considering outpt revascularization but pt refused. 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 Now fully revascularized. s/p [employer] ICD 01/2018 NSVT Paroxysmal atrial fibrillation: occurred during STEMI. 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 -continue bumex 2mg IV BID -when euvolemic, may consider noncontrast chest CT to evaluate underlying lung pathology -start aldactone 25mg -hold losartan as BP has not tolerated in the past -if BP stable and compensated, will consider low dose bisoprolol -continue Eliquis 2.5mg BID -plavix 75mg -lipitor 80mg Consultation Date/Type/Reason Admit Date/Time 01/13/19 Date of Consultation: Jan 14, 2019 Type of Consult Cardiology Reason for Consultation CHF Requesting Provider: IDA PERAZA MD Date/Time of Note DATE: 01/14/19 TIME: 11:36 Hx of Present Illness 73 yo M who is very well known to me from prior admissions and clinic who has a complex cardiac history (see A/P for details) including CAD, CHF, pulm HTN, COPD, CKD. He presented with one week of increasing dyspnea, orthopnea, PND, edema similar to his prior exacerbations. I last spoke with his son in evaluati on of inguinal hernia about 3 weeks ago and he was doing well. Per the pt he has been compliant with his meds. Generally takes bumex 1mg BID but I had advised them to have him take TID for a few days and when he had increasing dyspnea. He was on TID recently. No increase in salt intake, recent illness, travel, etc, to explain his decompensation. No chest pain. He notes urinating frequently since b eing here and improvement in his breathing. He also had lactic acidosis and acute renal failure both of which improved this am. Tele with PVCs and a 5 beat run of NSVT. per HPI Past Medical History per HPI and A/P Home Meds Reported Medications Ergocalciferol (Vitamin D2) (VITAMIN D2) 50,000 Unit Capsule, 59730 UNIT PO ONCE A WEEK, CAP 01/13/19 Ferrous Sulfate* (Ferrous Sulfate*) 325 Mg Tabec, 325 MG PO DAILY, TAB 01/13/19 Tiotropium Br/Olodaterol HCl (Stiolto Respimat Inhal [place]) 4 Gm Mist.inhal, 2 PUFF INHALATION DAILY, #1 INHALER 01/13/19 Albuterol Sulfate* (Ventolin HFA*) 18 Gm Hfa.aer.ad, 2 PUFF INHALATION Q4H, #1 INHALER 01/13/19 Bumetanide* (Bumetanide*) 1 Mg Tablet, 1 MG PO BID, TAB 01/13/19 Allopurinol* (Allopurinol*) 300 Mg Tablet, 300 MG PO DAILY, TAB 08/26/18 Potassium Chloride* (K-Dur*) 10 Meq Tab.prt.sr, 10 MEQ PO DAILY, TAB 08/26/18 Atorvastatin* (Atorvastatin*) 80 Mg Tablet, 80 MG PO QHS, #30 TAB 08/26/18 Losartan Potassium* (Losartan Potassium*) 25 Mg Tablet, 25 MG PO DAILY, TAB 08/26/18 Apixaban* (Eliquis*) 2.5 Mg Tablet, 2.5 MG PO BID, TAB 08/26/18 Clopidogrel Bisulfate* (Clopidogrel Bisulfate*) 75 Mg Tablet, 75 MG PO DAILY, #30 TAB 08/26/18 Discontinued Reported Medications Furosemide* (Furosemide*) 40 Mg Tablet, 40 MG PO BID, TAB 08/26/18 Discontinued Scripts Tramadol HCl (Tramadol HCl) 50 Mg Tablet, 50 MG PO BID PRN for PAIN, #8 TAB Prov:CLEO CEDENO MD 09/01/18 Albuterol Sulfate* (Proair HFA*) 8.5 Gm Hfa.aer.ad, 2 PUFF INH Q6H PRN for WHEEZING AND SOB, #1 INHALER 2 Refills Prov:WES DAVID MD 08/30/18 Thiamine* (Vitamin B-1*) 100 Mg Tablet, 100 MG PO DAILY for 30 Days, #30 TAB 1 Refill Prov:WES DAVID MD 08/30/18 Sennosides/Docusate Sodium (Dok Plus Tablet) 1 Each Tablet, 2 TAB PO HS for 5 Days, #10 TAB Prov:WES DAVID MD 08/30/18 Lactobacillus Rhamnosus GG (Culturelle) 1 Each Capsule, 1 CAP PO BID for 5 Days, #10 CAP Prov:WES DAVID MD 08/30/18 Kuwgcekebxy-Q-Htpbsybmdl Hb* (Guaifenesin* DM Syrup) 120 Ml Syrup, 10 ML PO Q4H PRN for COUGH for 1 Day Prov:WES DAVID MD 08/30/18 Acetaminophen* (Tylenol*) 325 Mg Tablet, 650 MG PO Q6H PRN for .PAIN 1-3 OR TEMP for 1 Day, TAB Prov:WES DAVID MD 08/30/18 Spironolactone* (Aldactone*) 25 Mg Tablet, 25 MG PO DAILY for 15 Days, #1 TAB Prov:WES DAVID MD 08/30/18 Medications Current Medications Apixaban (Eliquis) 2.5 mg BID PO Last administered on 01/14/19at 08:30; Admin Dose 2.5 MG; Start 01/13/19 at 21:00 Atorvastatin Calcium (Lipitor) 80 mg QHS PO Last administered on 01/13/19at 21:11; Admin Dose 80 MG; Start 01/13/19 at 21:00 Clopidogrel Bisulfate (plaVIX) 75 mg DAILY PO Last administered on 01/14/19at 08:30; Admin Dose 75 MG; Start 01/14/19 at 09:00 Ferrous Sulfate (Ferrous Sulfate (Ec)) 325 mg DAILY PO Last administered on 01/14/19at 08:30; Admin Dose 325 MG; Start 01/14/19 at 09:00 Losartan Potassium (Cozaar) 25 mg DAILY PO ; Start 01/14/19 at 09:00 Albuterol (Proventil 0.083% (Neb)) 2.5 mg Q2H RESP THERAPY PRN HHN SHORTNESS OF BREATH; Start 01/13/19 at 18:30 Fluticasone/ Vilanterol (Breo Ellipta 100-25 Mcg Inh) 1 inh DAILY INH Last administered on 01/14/19at 08:29; Admin Dose 1 INH; Start 01/14/19 at 09:00 IV Flush (NS 3 ml) 3 ml PER PROTOCOL IV ; Start 01/13/19 at 18:30 Lorazepam (Ativan) 0.5 mg Q6H PRN IV .ANXIETY; Start 01/13/19 at 18:30 Ondansetron HCl (Zofran Inj) 4 mg Q6H PRN IV NAUSEA/VOMITING; Start 01/13/19 at 18:30 Nitroglycerin (Nitroglycerin (Sl Tab) 0.4 Mg) 1 tab Q5M PRN SL .CHEST PAIN; Start 01/13/19 at 18:30 Acetaminophen (Tylenol Tab) 650 mg Q6H PRN PO .PAIN 1-3 OR TEMP; Start 01/13/19 at 18:30 Docusate Sodium (Colace) 100 mg Q12H PRN PO .CONSTIPATION; Start 01/13/19 at 18:30 Magnesium Hydroxide (Milk Of Mag) 30 ml DAILY PRN PO .CONSTIPATION; Start 01/13/19 at 18:30 Bumetanide 2 mg/ Dextrose 25 ml @ 50 mls/hr 0600,1800 IV Last administered on 01/14/19at 06:08; Admin Dose 50 MLS/HR; Start 01/14/19 at 06:00 Cefepime HCl 50 ml @ 100 mls/hr Q12 IVPB ; Start 01/14/19 at 09:30 Allergies: Coded Allergies: No Known Allergy (Unverified , 01/13/19) Past Surgical History Past Surgical Hx: angioplasty, other Social History Alcohol Use: none Smoking Status: Former smoker Drug Use: none Exam/Review of Systems Vital Signs Vitals Vital Signs Date Temp Pulse Resp B/P (MAP) Pulse Ox O2 O2 Flow FiO2 Time Delivery Rate 01/14/19 98.0 81 18 90/57 (68) 92 11:34 01/14/19 Nasal 03:57 Cannula 01/13/19 2.0 20:00 Intake and Output 01/13/19 01/13/19 01/14/19 1515:00 23:00 07:00 IntakeIntake Total 530 ml OutputOutput Total 400 ml BalanceBalance 130 ml Exam Constitutional: alert, oriented Psych: nl mood/affect Head: normocephalic, atraumatic Neck: jvd (at angle of jaw) Respiratory: No clear to auscultation (crackles to 2/3 lungs, diminished breath sounds. ) Cardiovascular: regular rate and rhythm, systolic murmur (2/6 LIBBY); No edema Gastrointestinal: soft, non-tender; No distended Neurological: nl mental status, nl speech Labs Result Diagram: 01/14/19 0440 01/14/19 0440 Results 24hrs Laboratory Tests Test 01/13/19 15:06 01/13/19 15:55 01/13/19 15:57 01/13/19 18:29 White Blood Count 5.9 # Red Blood Count 3.82 L Hemoglobin 10.1 L Hematocrit 32.9 L Mean Corpuscular 86.1 Volume Mean Corpuscular 26.4 L Hemoglobin Mean Corpuscular 30.7 L Hemoglobin Concen t Red Cell 17.2 H Distribution Width Platelet Count 183 # Mean Platelet 10.2 Volume Immature 0.300 Granulocytes % Neutrophils % 67.5 Lymphocytes % 20.7 Monocytes % 9.0 Eosinophils % 2.0 Basophils % 0.5 Nucleated Red 0.0 Blood Cells % Immature 0.020 Granulocytes # Neutrophils # 4.0 Lymphocytes # 1.2 Monocytes # 0.5 Eosinophils # 0.1 Basophils # 0.0 Nucleated Red 0.0 Blood Cells # Prothrombin Time 20.9 H Prothrombin Time 1.6 Ratio INR International 1.79 Normalized Ratio Activated 42.7 H Partial Thrombopl ast Time Sodium Level 141 Potassium Level 3.8 Chloride Level 108 Carbon Dioxide 19 L Level Anion Gap 14 H Blood Urea 45 H Nitrogen Creatinine 1.55 H Est Glomerular Filtrat Rate mL/min Glucose Level 127 Calcium Level 9.6 Total Bilirubin 0.9 Direct Bilirubin 0.00 Indirect 0.9 Bilirubin Aspartate Amino 43 Transf (AST/SGOT) Alanine 32 Aminotransferase (ALT/SGPT) Alkaline 138 H Phosphatase Troponin I 0.015 B-Type 11741 H Natriuretic Peptide Total Protein 7.7 Albumin 3.9 Globulin 3.80 H Albumin/Globulin 1.02 Ratio POC Venous 2.8 *H Lactate Blood Gas Blood arterial Specimen Source Arterial Blood 01/13/2019 3:58:5 Date Drawn 8 PM Arterial Blood pH 7.477 H (Temp corrected) Arterial Blood 25.8 L pCO2 (Temp correct) Arterial Blood 148.5 H pO2 (Temp corrected) Arterial Blood 18.7 L HCO3 Arterial Blood -3.6 L Base Excess Arterial Blood 98.8 Oxygen Saturation Robert Test ACCEPTAB Arterial Blood Right Radial Gas Puncture Site Arterial 0.4 Blood Carboxyhemo globin Arterial Blood 0.3 Methemoglobin Blood Gas A-a O2 200.6 H Differential Oxyhemoglobin 98.1 Percent Blood Gas 37.0 Temperature Blood Gas MASK - SIMPLE Modality FiO2 53.0 Blood Gas M.D. Notified Whom Blood Gas 01/13/2019 4:10:4 Notified Time 2 PM Lactic Acid Level 2.9 *H Test 01/13/19 21:19 01/14/19 04:40 Lactic Acid Level 2.4 *H White Blood Count 5.3 Red Blood Count 3.55 L Hemoglobin 9.2 L Hematocrit 30.2 L Mean Corpuscular 85.1 Volume Mean Corpuscular 25.9 L Hemoglobin Mean Corpuscular 30.5 L Hemoglobin Concen t Red Cell 17.1 H Distribution Width Platelet Count 164 Mean Platelet 10.4 Volume Immature 0.400 Granulocytes % Neutrophils % 69.4 Lymphocytes % 19.5 Monocytes % 8.2 Eosinophils % 1.9 Basophils % 0.6 Nucleated Red 0.0 Blood Cells % Immature 0.020 Granulocytes # Neutrophils # 3.7 Lymphocytes # 1.0 Monocytes # 0.4 Eosinophils # 0.1 Basophils # 0.0 Nucleated Red 0.0 Blood Cells # Sodium Level 144 Potassium Level 3.3 L Chloride Level 113 H Carbon Dioxide 22 Level Anion Gap 9 # Blood Urea 39 H Nitrogen Creatinine 1.30 H Est Glomerular Filtrat Rate mL/min Glucose Level 108 Calcium Level 9.2 Magnesium Level 2.3 Thyroid 3.580 Stimulating Hormone (TSH) Medications Medications Current Medications Apixaban (Eliquis) 2.5 mg BID PO Last administered on 01/14/19at 08:30; Admin Dose 2.5 MG; Start 01/13/19 at 21:00 Atorvastatin Calcium (Lipitor) 80 mg QHS PO Last administered on 01/13/19at 21:11; Admin Dose 80 MG; Start 01/13/19 at 21:00 Clopidogrel Bisulfate (plaVIX) 75 mg DAILY PO Last administered on 01/14/19at 08:30; Admin Dose 75 MG; Start 01/14/19 at 09:00 Ferrous Sulfate (Ferrous Sulfate (Ec)) 325 mg DAILY PO Last administered on 01/14/19at 08:30; Admin Dose 325 MG; Start 01/14/19 at 09:00 Losartan Potassium (Cozaar) 25 mg DAILY PO ; Start 01/14/19 at 09:00 Albuterol (Proventil 0.083% (Neb)) 2.5 mg Q2H RESP THERAPY PRN HHN SHORTNESS OF BREATH; Start 01/13/19 at 18:30 Fluticasone/ Vilanterol (Breo Ellipta 100-25 Mcg Inh) 1 inh DAILY INH Last administered on 01/14/19at 08:29; Admin Dose 1 INH; Start 01/14/19 at 09:00 IV Flush (NS 3 ml) 3 ml PER PROTOCOL IV ; Start 01/13/19 at 18:30 Lorazepam (Ativan) 0.5 mg Q6H PRN IV .ANXIETY; Start 01/13/19 at 18:30 Ondansetron HCl (Zofran Inj) 4 mg Q6H PRN IV NAUSEA/VOMITING; Start 01/13/19 at 18:30 Nitroglycerin (Nitroglycerin (Sl Tab) 0.4 Mg) 1 tab Q5M PRN SL .CHEST PAIN; Start 01/13/19 at 18:30 Acetaminophen (Tylenol Tab) 650 mg Q6H PRN PO .PAIN 1-3 OR TEMP; Start 01/13/19 at 18:30 Docusate Sodium (Colace) 100 mg Q12H PRN PO .CONSTIPATION; Start 01/13/19 at 18:30 Magnesium Hydroxide (Milk Of Mag) 30 ml DAILY PRN PO .CONSTIPATION; Start 01/13/19 at 18:30 Bumetanide 2 mg/ Dextrose 25 ml @ 50 mls/hr 0600,1800 IV Last administered on 01/14/19at 06:08; Admin Dose 50 MLS/HR; Start 01/14/19 at 06:00 Cefepime HCl 50 ml @ 100 mls/hr Q12 IVPB ; Start 01/14/19 at 09:30 JUANITO BENITEZ Jan 14, 2019 11:47
[2019-01-14] MEDS: SPIRONOLACTONE 25 MG TAB PO SCH (12:30)
[2019-01-14] MEDS: CEFEPIME 1GM/50 ML (PMX) 50 ML IVPB SCH ×2 (12:31→22:27)
[2019-01-14 15:57] VITALS: BP 96/59; PULSE 57; RESP 19
--- NOTE | 2019-01-14 15:57 | CONS ---
DATE OF ADMISSION: 01/13/2019 DATE OF CONSULTATION: 01/14/2019 REASON FOR CONSULTATION: Shortness of breath. Thank you, Dr. Ulrich, for this consultation. HISTORY OF PRESENT ILLNESS: This is a 73-year-old gentleman with a history of AICD, coronary artery disease, atrial fibrillation, peripheral vascular disease, COPD, pulmonary hypertension, and CKD, pre sented with increasing lower extremity edema, shortness of breath, orthopnea, PND, cough, but no feve r or chills, no chest pain or palpitations. No nausea, no vomiting, no syncopal episodes. On admiss ion, his labs demonstrated elevated BNP at 11,700 and elevated lactic acid 2.9, now 2.4. Chest x-ray on admission also showed significant congestive cardiac failure with possible right lower lobe infil trate or effusion. The patient states he does not normally require supplemental O2 at home. Current ly denies any alcohol or drug abuse. PAST MEDICAL HISTORY: As above. MEDICATIONS: Per chart. ALLERGIES: NONE. SOCIAL HISTORY: Ex-smoker, no alcohol, no history of drug use. FAMILY HISTORY: Noncontributory. SYSTEMS REVIEW: A 12-point review of systems was negative other than mentioned above. PHYSICAL EXAMINATION: GENERAL: Elderly-appearing gentleman, thin, but comfortable, in no acute distress. VITAL SIGNS: Currently afebrile, pulse is 80, blood pressure 90/57, O2 saturation 92% on 2 L nasal c annula. NECK: Supple. No JVD or lymphadenopathy. CARDIAC: S1, S2, no added sounds or murmurs. CHEST: Diminished air entry bilaterally. ABDOMEN: Soft, nontender. No guarding or rebound. EXTREMITIES: No cyanosis, clubbing or edema. NEUROLOGIC: Generalized weakness, but no focal deficits. IMPRESSION: 1. Acute on chronic congestive cardiac failure, likely diastolic dysfunction. 2. Questionable pneumonia, although I think unlikely given normal white blood cell count. I will ch chaim procalcitonin. 3. Decreased ejection fraction with pulmonary hypertension. 4. Chronic kidney disease. PLAN: 1. Continue diuretics. 2. Supplemental oxygen. 3. Bronchodilators. 4. Check procalcitonin. Discontinue antibiotics soon. 5. DVT and GI prophylaxis. Anticipate patient being discharged home when more stable. Currently not stable for sildenafil given his low systolic blood pressure. Dictated By: CARLO LEE/ALY Conf#: [id number] DID#: [id number] CC: IDA ULRICH MD;*End*
--- NOTE | 2019-01-14 17:20 | CONS ---
Assessment/Plan Assessment/Plan Assessment/Plan (Daily) 1. Acute kidney injury on CKD III due to Hemodynamics from CHF 2. acute on chronic Systolic HF with EF 20% 3. Severe pulmonary HTN 4. Ischemic CM with EF 20% s/p PCI in 11/2017 at [facility] 5. 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 Now fully revascularized. 5. H/o Paroxysmal atrial fibrillation s/p AICD placement 6. H/o Chronic respiratory failur from COPD on home oxygen Plan: still SOB and Edematous, Continue IV bumex 2mg IV Q 8hr- if no response will consider Bumex gt K 3.3, BUN/Cr 39/1.3- replaced for today Pulmonary has been consulted on the case Will follow up Consultation Date/Type/Reason Admit Date/Time Jan 13, 2019 at 18:31 Initial Consult Date 01/14/19 Requesting Provider: IDA PERAZA MD Date/Time of Note DATE: 01/14/19 TIME: 17:20 Exam/Review of Systems Exam Vitals Vital Signs Date Temp Pulse Resp B/P (MAP) Pulse Ox O2 O2 Flow FiO2 Time Delivery Rate 01/14/19 97.8 57 19 96/59 (71) 95 15:57 01/14/19 Nasal 2.0 08:00 Cannula Intake and Output 01/13/19 01/13/19 01/14/19 1515:00 23:00 07:00 IntakeIntake Total 530 ml OutputOutput Total 400 ml BalanceBalance 130 ml Exam Constitutional: alert, oriented Psych: nl mood/affect Head: normocephalic, atraumatic Neck: jvd (at angle of jaw) Respiratory: BIlatearl crackles upto midlung Cardiovascular: regular rate and rhythm, SM + on exam Gastrointestinal: soft, non-tender; ND, BS+ Neurological: nl mental status, nl speech Results Result Diagram: 01/14/19 0440 01/14/19 0440 Results 24hrs Laboratory Tests Test 01/13/19 18:29 01/13/19 21:19 01/14/19 04:40 Lactic Acid Level 2.9 *H 2.4 *H White Blood Count 5.3 Red Blood Count 3.55 L Hemoglobin 9.2 L Hematocrit 30.2 L Mean Corpuscular Volume 85.1 Mean Corpuscular Hemoglobin 25.9 L Mean Corpuscular Hemoglobin Concent 30.5 L Red Cell Distribution Width 17.1 H Platelet Count 164 Mean Platelet Volume 10.4 Immature Granulocytes % 0.400 Neutrophils % 69.4 Lymphocytes % 19.5 Monocytes % 8.2 Eosinophils % 1.9 Basophils % 0.6 Nucleated Red Blood Cells % 0.0 Immature Granulocytes # 0.020 Neutrophils # 3.7 Lymphocytes # 1.0 Monocytes # 0.4 Eosinophils # 0.1 Basophils # 0.0 Nucleated Red Blood Cells # 0.0 Sodium Level 144 Potassium Level 3.3 L Chloride Level 113 H Carbon Dioxide Level 22 Anion Gap 9 # Blood Urea Nitrogen 39 H Creatinine 1.30 H Est Glomerular Filtrat Rate mL/min Glucose Level 108 Calcium Level 9.2 Magnesium Level 2.3 Thyroid Stimulating Hormone (TSH) 3.580 Medications Medication Current Medications Apixaban (Eliquis) 2.5 mg BID PO Last administered on 01/14/19 08:30; Admin Do se 2.5 MG; Start 01/13/19 at 21:00 Atorvastatin Calcium (Lipitor) 80 mg QHS PO Last administered on 01/13/19at 21:11; Admin Dose 80 MG; Start 01/13/19 at 21:00 Clopidogrel Bisulfate (plaVIX) 75 mg DAILY PO Last administered on 01/14/19 08:30; Admin Dose 75 MG; Start 01/14/19 at 09:00 Ferrous Sulfate (Ferrous Sulfate (Ec)) 325 mg DAILY PO Last administered on 01/14/19 08:30; Admin Dose 325 MG; Start 01/14/19 at 09:00 Albuterol (Proventil 0.083% (Neb)) 2.5 mg Q2H RESP THERAPY PRN HHN SHORTNESS OF BREATH; Start 01/13/19 at 18:30 Fluticasone/ Vilanterol (Breo Ellipta 100-25 Mcg Inh) 1 inh DAILY INH Last administered on 01/14/19at 08:29; Admin Dose 1 INH; Start 01/14/19 at 09:00 IV Flush (NS 3 ml) 3 ml PER PROTOCOL IV ; Start 01/13/19 at 18:30 Lorazepam (Ativan) 0.5 mg Q6H PRN IV .ANXIETY; Start 01/13/19 at 18:30 Ondansetron HCl (Zofran Inj) 4 mg Q6H PRN IV NAUSEA/VOMITING; Start 01/13/19 at 18:30 Nitroglycerin (Nitroglycerin (Sl Tab) 0.4 Mg) 1 tab Q5M PRN SL .CHEST PAIN; Start 01/13/19 at 18:30 Acetaminophen (Tylenol Tab) 650 mg Q6H PRN PO .PAIN 1-3 OR TEMP; Start 01/13/19 at 18:30 Docusate Sodium (Colace) 100 mg Q12H PRN PO .CONSTIPATION; Start 01/13/19 at 18:30 Magnesium Hydroxide (Milk Of Mag) 30 ml DAILY PRN PO .CONSTIPATION; Start 01/13/19 at 18:30 Bumetanide 2 mg/ Dextrose 25 ml @ 50 mls/hr 0600,1800 IV Last administered on 01/14/19at 06:08; Admin Dose 50 MLS/HR; Start 01/14/19 at 06:00 Cefepime HCl 50 ml @ 100 mls/hr Q12 IVPB Last administered on 01/14/19at 12:31; Admin Dose 100 MLS/HR; Start 01/14/19 at 09:30 Spironolactone (Aldactone) 25 mg DAILY PO Last administered on 01/14/19at 12:30; Admin Dose 25 MG; Start 01/14/19 at 12:00 DYLAN LUGO MD Jan 14, 2019 17:20
[2019-01-14 20:17] VITALS: BP 104/67; PULSE 81; RESP 20
[2019-01-14] MEDS: ALBUTEROL 0.083% (NEB) 2.5 MG/3 ML AMP HHN PRN (21:22)
[2019-01-14] MEDS: ATORVASTATIN 80 MG TAB PO SCH (22:27)
[2019-01-15 00:02] VITALS: BP 96/62; PULSE 84
[2019-01-15] MEDS: ALBUTEROL 0.083% (NEB) 2.5 MG/3 ML AMP HHN PRN ×4 (01:02→21:55)
[2019-01-15 04:14] VITALS: BP 94/57; PULSE 72; RESP 24
[2019-01-15] MEDS: BUMETANIDE 2 MG in DEXTROSE 5% 17 ML IV SCH ×3 (05:50→21:45)
[2019-01-15 07:26] VITALS: BP 97/60; PULSE 71; RESP 21
[2019-01-15] MEDS ORDERED: POTASSIUM CHLORIDE 20 MEQ POWDER FOR ORAL SOLN PO ONE (08:00)
[2019-01-15] MEDS: FLUTICASONE/VILANTEROL 100-25 INH SCH (08:11)
[2019-01-15] MEDS: SPIRONOLACTONE 25 MG TAB PO SCH (08:11)
[2019-01-15] MEDS: FERROUS SULFATE (EC) 325 MG TAB PO SCH (08:11)
[2019-01-15] MEDS: CLOPIDOGREL 75 MG TAB PO SCH (08:11)
[2019-01-15] MEDS: APIXABAN 5 MG TABLET PO SCH ×2 (08:12→20:18)
[2019-01-15] MEDS: CEFEPIME 1GM/50 ML (PMX) 50 ML IVPB SCH ×2 (08:16→20:17)
[2019-01-15] MEDS ORDERED: METOLAZONE 5 MG TAB PO ONE (08:30)
--- NOTE | 2019-01-15 10:13 | CONS ---
Assessment/Plan Assessment/Plan Hospital Course (Demo Recall) Acute on chronic systolic heart failure: Unclear trigger this time. Not much improvement yet Acute on chronic renal failure: Cr has fluctuated and as high as 2 before. Outpt baseline is ~1.2-1.6 when stable. Lactic acidosis: due to hypoperfusion secondary to ADHF. Improved Severe pulmonary HTN: PAP as high as 85 mmHg recently but closer to 70mmHg when compensated. Likely combination of heart failure and intrinsic lung disease H/o anterior STEMI: occurred 09/16/17. s/p PCI of prox-mid LAD. Ischemic cardiomyopathy: EF 20% and unchanged from post PCI 12/04 echo at [facility] PAD: right iliac 95% seen on cath 09/03. Considering outpt revascularization but pt refused. 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 Now fully revascularized. s/p [employer] ICD 01/2018 NSVT Paroxysmal atrial fibrillation: occurred during STEMI. 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 He tends to bump his Cr with more aggressive diuresis even when he remains overloaded. -replete K -one dose of metolazone 5mg -increase to bumex 2mg IV q8h -when euvolemic, may consider noncontrast chest CT to evaluate underlying right lung pathology -aldactone 25mg -hold losartan as BP has not tolerated in the past -if BP stable and compensated, will consider low dose bisoprolol -continue Eliquis 2.5mg BID -plavix 75mg -lipitor 80mg Consultation Date/Type/Reason Admit Date/Time Jan 13, 2019 at 18:31 Initial Consult Date 01/14/19 Type of Consult Cardiology Requesting Provider: IDA PERAZA MD Date/Time of Note DATE: 01/15/19 TIME: 10:08 24 HR Interval Summary Free Text/Dictation Not much urine output and only slightly negative. He is giving all his urine samples so presumably it is accurate. Still SOB though he thinks he is better. Exam/Review of Systems Vital Signs Vitals Vital Signs Date Temp Pulse Resp B/P (MAP) Pulse Ox O2 O2 Flow FiO2 Time Delivery Rate 01/15/19 79 20 97 Nasal 2.0 08:24 Cannula 01/15/19 97.5 97/60 (72) 07:26 Intake and Output 01/14/19 01/14/19 01/15/19 1515:00 23:00 07:00 IntakeIntake Total 240 ml 120 ml 400 ml OutputOutput Total 300 ml 300 ml 600 ml BalanceBalance -60 ml -180 ml -200 ml Exam Constitutional: alert, oriented Psych: nl mood/affect Head: normocephalic, atraumatic Neck: jvd (angle of jaw) Respiratory: crackles/rales (to 2/3 lungs ); No clear to auscultation Cardiovascular: regular rate and rhythm, systolic murmur (2/6 LIBBY); No edema Gastrointestinal: soft, non-tender; No distended Extremities: No edema Neurological: nl mental status, nl speech Labs Result Diagram: 01/15/19 0535 01/15/19 0535 Results 24hrs Laboratory Tests Test 01/15/19 05:35 White Blood Count 5.9 Red Blood Count 3.56 L Hemoglobin 9.3 L Hematocrit 30.2 L Mean Corpuscular Volume 84.8 Mean Corpuscular Hemoglobin 26.1 L Mean Corpuscular Hemoglobin Concent 30.8 L Red Cell Distribution Width 17.2 H Platelet Count 155 Mean Platelet Volume 9.8 Immature Granulocytes % 0.500 H Neutrophils % 76.5 Lymphocytes % 13.1 L Monocytes % 8.1 Eosinophils % 1.5 Basophils % 0.3 Nucleated Red Blood Cells % 0.0 Immature Granulocytes # 0.030 Neutrophils # 4.5 Lymphocytes # 0.8 Monocytes # 0.5 Eosinophils # 0.1 Basophils # 0.0 Nucleated Red Blood Cells # 0.0 Sodium Level 143 Potassium Level 3.2 L Chloride Level 110 Carbon Dioxide Level 23 Anion Gap 10 Blood Urea Nitrogen 32 H Creatinine 1.20 Est Glomerular Filtrat Rate mL/min Glucose Level 119 Calcium Level 9.1 Phosphorus Level 2.7 Magnesium Level 2.1 Medications Medications Current Medications Apixaban (Eliquis) 2.5 mg BID PO Last administered on 01/15/19at 08:12; Admin Dose 2.5 MG; Start 01/13/19 at 21:00 Atorvastatin Calcium (Lipitor) 80 mg QHS PO Last administered on 01/14/19 22:27; Admin Dose 80 MG; Start 01/13/19 at 21:00 Clopidogrel Bisulfate (plaVIX) 75 mg DAILY PO Last administered on 01/15/19 08:11; Admin Dose 75 MG; Start 01/14/19 at 09:00 Ferrous Sulfate (Ferrous Sulfate (Ec)) 325 mg DAILY PO Last administered on 01/15/19 08:11; Admin Dose 325 MG; Start 01/14/19 at 09:00 Albuterol (Proventil 0.083% (Neb)) 2.5 mg Q2H RESP THERAPY PRN HHN SHORTNESS OF BREATH Last administered on 01/15/19 08:23; Admin Dose 2.5 MG; Start 01/13/19 at 18:30 Fluticasone/ Vilanterol (Breo Ellipta 100-25 Mcg Inh) 1 inh DAILY INH Last administered on 01/15/19 08:11; Admin Dose 1 INH; Start 01/14/19 at 09:00 IV Flush (NS 3 ml) 3 ml PER PROTOCOL IV ; Start 01/13/19 at 18:30 Lorazepam (Ativan) 0.5 mg Q6H PRN IV .ANXIETY; Start 01/13/19 at 18:30 Ondansetron HCl (Zofran Inj) 4 mg Q6H PRN IV NAUSEA/VOMITING; Start 01/13/19 at 18:30 Nitroglycerin (Nitroglycerin (Sl Tab) 0.4 Mg) 1 tab Q5M PRN SL .CHEST PAIN; Start 01/13/19 at 18:30 Acetaminophen (Tylenol Tab) 650 mg Q6H PRN PO .PAIN 1-3 OR TEMP; Start 01/13/19 at 18:30 Docusate Sodium (Colace) 100 mg Q12H PRN PO .CONSTIPATION; Start 01/13/19 at 18:30 Magnesium Hydroxide (Milk Of Mag) 30 ml DAILY PRN PO .CONSTIPATION; Start 01/13/19 at 18:30 Cefepime HCl 50 ml @ 100 mls/hr Q12 IVPB Last administered on 01/15/19 08:16; Admin Dose 100 MLS/HR; Start 01/14/19 at 09:30 Spironolactone (Aldactone) 25 mg DAILY PO Last administered on 7/30/19at 08:11; Admin Dose 25 MG; Start 01/14/19 at 12:00 Bumetanide 2 mg/ Dextrose 25 ml @ 50 mls/hr Q8H IV ; Start 01/15/19 at 14:00 JUANITO BENITEZ Jan 15, 2019 10:13
--- NOTE | 2019-01-15 10:49 | PN ---
Date/Time of Note Date/Time of Note DATE: 01/15/19 TIME: 10:45 Objective Vitals Vital Signs Date Temp Pulse Resp B/P (MAP) Pulse Ox O2 O2 Flow FiO2 Time Delivery Rate 01/15/19 79 20 97 Nasal 2.0 08:24 Cannula 01/15/19 97.5 97/60 (72) 07:26 Intake and Output 01/14/19 01/14/19 01/15/19 1515:00 23:00 07:00 IntakeIntake Total 240 ml 120 ml 400 ml OutputOutput Total 300 ml 300 ml 600 ml BalanceBalance -60 ml -180 ml -200 ml Results Result Diagram: 01/15/19 0535 01/15/19 0535 Medications Medications Current Medications Apixaban (Eliquis) 2.5 mg BID PO Last administered on 01/15/19 08:12; Admin Dose 2.5 MG; Start 01/13/19 at 21:00 Atorvastatin Calcium (Lipitor) 80 mg QHS PO Last administered on 01/14/19at 22:27; Admin Dose 80 MG; Start 01/13/19 at 21:00 Clopidogrel Bisulfate (plaVIX) 75 mg DAILY PO Last administered on 01/15/19 08:11; Admin Dose 75 MG; Start 01/14/19 at 09:00 Ferrous Sulfate (Ferrous Sulfate (Ec)) 325 mg DAILY PO Last administered on 01/15/19 08:11; Admin Dose 325 MG; Start 01/14/19 at 09:00 Albuterol (Proventil 0.083% (Neb)) 2.5 mg Q2H RESP THERAPY PRN HHN SHORTNESS OF BREATH Last administered on 01/15/19 08:23; Admin Dose 2.5 MG; Start 01/13/19 at 18:30 Fluticasone/ Vilanterol (Breo Ellipta 100-25 Mcg Inh) 1 inh DAILY INH Last administered on 01/15/19 08:11; Admin Dose 1 INH; Start 01/14/19 at 09:00 IV Flush (NS 3 ml) 3 ml PER PROTOCOL IV ; Start 01/13/19 at 18:30 Lorazepam (Ativan) 0.5 mg Q6H PRN IV .ANXIETY; Start 01/13/19 at 18:30 Ondansetron HCl (Zofran Inj) 4 mg Q6H PRN IV NAUSEA/VOMITING; Start 01/13/19 at 18:30 Nitroglycerin (Nitroglycerin (Sl Tab) 0.4 Mg) 1 tab Q5M PRN SL .CHEST PAIN; Start 01/13/19 at 18:30 Acetaminophen (Tylenol Tab) 650 mg Q6H PRN PO .PAIN 1-3 OR TEMP; Start 01/13/19 at 18:30 Docusate Sodium (Colace) 100 mg Q12H PRN PO .CONSTIPATION; Start 01/13/19 at 18:30 Magnesium Hydroxide (Milk Of Mag) 30 ml DAILY PRN PO .CONSTIPATION; Start 01/13/19 at 18:30 Cefepime HCl 50 ml @ 100 mls/hr Q12 IVPB Last administered on 01/15/19at 08:16; Admin Dose 100 MLS/HR; Start 01/14/19 at 09:30 Spironolactone (Aldactone) 25 mg DAILY PO Last administered on 01/15/19at 08:11; Admin Dose 25 MG; Start 01/14/19 at 12:00 Bumetanide 2 mg/ Dextrose 25 ml @ 50 mls/hr Q8H IV ; Start 01/15/19 at 14:00 VTE Prophylaxis Risk score (from Ns)>0 risk: 3 SCD applied (from Ns): Yes Lines/Catheters IV Catheter Type: Trent in Place: No Assessment/Plan Hospital Course Subjective Patient feels a little better than yesterday Objective Physical exam General: Patient is laying in bed and answers questions appropriately Mentation: Patient is alert and oriented 4, Head: Normocephalic atraumatic Eyes: EOMI, pupils reactive to light Neck: Supple, nontender, midline Respiratory: Coarse to auscultation bilaterally Cardiovascular: regular rate, no obvious murmurs Gastrointestinal: non-tender to palpation, bowel sounds heard. Neurological: Moves all extremities spontaneously Skin: No new skin lesions Assessment/Plan 1. Acute on chronic systolic heart failure - BNP noted - Cardiology consulted for diuretic recommendations. Patient follows with Dr. Lara as outpatient and Bumex recently changed to TID per family, inpatient diuresis will be managed by rn concurrent review as he knows this patient very well and diuretics affects patient very sensitively - CXR noted with central congestion - Monitor I/O and daily weights - ECHO from 08/2018 noted with EF 20% and significant pulmonary HTN 2. SILVESTRE on CKD - Nephrology, Dr. Garvin, consulted for recommendations given patient needs to be on diuretics -Ultrasound noted - avoid nephrotoxic agents -Resolving 3. Pulmonary HTN - noted on recent ECHO and most likely contributing to SOB - Supplemental O2 - Will start Sildenafil if okay with pulmonology and cardiology, however given patient's known pulmonary hypertension and multiple cardiac issues as well as pulmonary issues, will likely defer to outpatient initiation of treatment if any. - pulmonary consultation placed 4. Anemia of chronic disease - stable 5. COPD - continue home bronchodilators - PRN nebs - no exacerbation noted 6. Atrial fibrillation - continue home medications - rate controlled - on Eliquis Ischemic cardiomyopathy -Medications per rn concurrent review Coronary artery disease -Medications per rn concurrent review 7. PAD - on Plavix 8. AICD 9. Diet - Cardiac History of home O2 use -Off oxygen for now 10. Disposition -Continue diuretic management per rn concurrent review and nephrology, continue inpatient CASSY SAUNDERS Jan 15, 2019 10:49
[2019-01-15 11:29] VITALS: BP 94/55; PULSE 83; RESP 20
[2019-01-15] MEDS ORDERED: BUMETANIDE 1 MG INJ IV SCH (11:30)
--- NOTE | 2019-01-15 11:40 | CONS ---
Consult Date/Type/Reason Admit Date/Time Jan 13, 2019 at 18:31 Initial Consult Date 01/14/19 Type of Consult Pulmonary Requesting Provider: IDA PERAZA MD Date/Time of Note DATE: 01/15/19 TIME: 11:38 Subjective Patient better today. States his breathing is close to baseline beginning to ambulate. He states he has supplemental O2. Objective Vital Signs Date Temp Pulse Resp B/P (MAP) Pulse Ox O2 O2 Flow FiO2 Time Delivery Rate 01/15/19 97.8 83 20 94/55 (68) 98 11:29 01/15/19 2.0 11:21 01/15/19 Nasal 08:24 Cannula Intake and Output 01/14/19 01/14/19 01/15/19 1515:00 23:00 07:00 IntakeIntake Total 240 ml 120 ml 400 ml OutputOutput Total 300 ml 300 ml 600 ml BalanceBalance -60 ml -180 ml -200 ml Exam GENERAL: Well-nourished well-developed gentleman comfortable at rest no acute distress VITAL SIGNS: per chart NECK: Supple. No JVD or lymphadenopathy. CARDIAC EXAM: S1, S2. No added sounds or murmurs. CHEST: Diminished air entry at bases ABDOMEN: Soft, nontender. No guarding or rebound. EXTREMITIES: No cyanosis, clubbing or edema. NEUROLOGIC: Generalized weakness. No focal deficits. Results/Medications Result Diagram: 01/15/19 0535 01/15/19 0535 Results 24 hrs Laboratory Tests Test 01/15/19 05:35 White Blood Count 5.9 Red Blood Count 3.56 L Hemoglobin 9.3 L Hematocrit 30.2 L Mean Corpuscular Volume 84.8 Mean Corpuscular Hemoglobin 26.1 L Mean Corpuscular Hemoglobin Concent 30.8 L Red Cell Distribution Width 17.2 H Platelet Count 155 Mean Platelet Volume 9.8 Immature Granulocytes % 0.500 H Neutrophils % 76.5 Lymphocytes % 13.1 L Monocytes % 8.1 Eosinophils % 1.5 Basophils % 0.3 Nucleated Red Blood Cells % 0.0 Immature Granulocytes # 0.030 Neutrophils # 4.5 Lymphocytes # 0.8 Monocytes # 0.5 Eosinophils # 0.1 Basophils # 0.0 Nucleated Red Blood Cells # 0.0 Sodium Level 143 Potassium Level 3.2 L Chloride Level 110 Carbon Dioxide Level 23 Anion Gap 10 Blood Urea Nitrogen 32 H Creatinine 1.20 Est Glomerular Filtrat Rate mL/min Glucose Level 119 Calcium Level 9.1 Phosphorus Level 2.7 Magnesium Level 2.1 Medications Current Medications Apixaban (Eliquis) 2.5 mg BID PO Last administered on 01/15/19 08:12; Admin Dose 2.5 MG; Start 01/13/19 at 21:00 Atorvastatin Calcium (Lipitor) 80 mg QHS PO Last administered on 01/14/19 22:27; Admin Dose 80 MG; Start 01/13/19 at 21:00 Clopidogrel Bisulfate (plaVIX) 75 mg DAILY PO Last administered on 01/15/19 08:11; Admin Dose 75 MG; Start 01/14/19 at 09:00 Ferrous Sulfate (Ferrous Sulfate (Ec)) 325 mg DAILY PO Last administered on 01/15/19 08:11; Admin Dose 325 MG; Start 01/14/19 at 09:00 Albuterol (Proventil 0.083% (Neb)) 2.5 mg Q2H RESP THERAPY PRN HHN SHORTNESS OF BREATH Last administered on 01/15/19 08:23; Admin Dose 2.5 MG; Start 01/13/19 at 18:30 Fluticasone/ Vilanterol (Breo Ellipta 100-25 Mcg Inh) 1 inh DAILY INH Last administered on 01/15/19 08:11; Admin Dose 1 INH; Start 01/14/19 at 09:00 IV Flush (NS 3 ml) 3 ml PER PROTOCOL IV ; Start 01/13/19 at 18:30 Lorazepam (Ativan) 0.5 mg Q6H PRN IV .ANXIETY; Start 01/13/19 at 18:30 Ondansetron HCl (Zofran Inj) 4 mg Q6H PRN IV NAUSEA/VOMITING; Start 01/13/19 at 18:30 Nitroglycerin (Nitroglycerin (Sl Tab) 0.4 Mg) 1 tab Q5M PRN SL .CHEST PAIN; Start 01/13/19 at 18:30 Acetaminophen (Tylenol Tab) 650 mg Q6H PRN PO .PAIN 1-3 OR TEMP; Start 01/13/19 at 18:30 Docusate Sodium (Colace) 100 mg Q12H PRN PO .CONSTIPATION; Start 01/13/19 at 18:30 Magnesium Hydroxide (Milk Of Mag) 30 ml DAILY PRN PO .CONSTIPATION; Start 01/13/19 at 18:30 Cefepime HCl 50 ml @ 100 mls/hr Q12 IVPB Last administered on 01/15/19at 08:16; Admin Dose 100 MLS/HR; Start 01/14/19 at 09:30 Spironolactone (Aldactone) 25 mg DAILY PO Last administered on 01/15/19at 08:11; Admin Dose 25 MG; Start 01/14/19 at 12:00 Bumetanide 2 mg/ Dextrose 25 ml @ 50 mls/hr Q8H IV ; Start 01/15/19 at 14:00 Assessment/Plan Hospital Course (Demo Recall) IMPRESSION: 1. Acute on chronic congestive cardiac failure, likely diastolic dysfunction. Clinically improved 2. Questionable pneumonia, although I think unlikely given normal white blood cell count. I will check procalcitonin. 3. Decreased ejection fraction with pulmonary hypertension. 4. Chronic kidney disease. PLAN: 1. Continue diuretics. Consider transition to p.o. diuretics 2. Supplemental oxygen. 3. Bronchodilators. 4. Check procalcitonin. Discontinue antibiotics soon. 5. DVT and GI prophylaxis. DC planning. CARLO MENARD MD, [facility] Jan 15, 2019 11:40
--- NOTE | 2019-01-15 13:48 | CONS ---
Assessment/Plan Assessment/Plan Assessment/Plan (Daily) 1. Acute kidney injury on CKD III due to Hemodynamics from CHF 2. acute on chronic Systolic HF with EF 20% 3. Severe pulmonary HTN 4. Ischemic CM with EF 20% s/p PCI in 11/2017 at [facility] 5. 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 Now fully revascularized. 5. H/o Paroxysmal atrial fibrillation s/p AICD placement 6. H/o Chronic respiratory failur from COPD on home oxygen Plan: still SOB and Edematous, Continue IV bumex 2mg IV Q 8hr- plan is to switch to pO bumex tomorrow BUN/Cr improved to 32/1.2, K 3.3- repalced for today Pulmonary has been consulted on the case Will follow up Consultation Date/Type/Reason Admit Date/Time Jan 13, 2019 at 18:31 Initial Consult Date 01/14/19 Type of Consult NEPHROLOGY Requesting Provider: IDA PERAZA MD Date/Time of Note DATE: 01/15/19 TIME: 13:48 24 HR Interval Summary Free Text/Dictation doing better, SOB improved much better,afebrile, BP stable Exam/Review of Systems Exam Vitals Vital Signs Date Temp Pulse Resp B/P (MAP) Pulse Ox O2 O2 Flow FiO2 Time Delivery Rate 01/15/19 Nasal 2.0 13:13 Cannula 01/15/19 97.8 83 20 94/55 (68) 98 11:29 Intake and Output 01/14/19 01/14/19 01/15/19 1515:00 23:00 07:00 IntakeIntake Total 240 ml 120 ml 400 ml OutputOutput Total 300 ml 300 ml 600 ml BalanceBalance -60 ml -180 ml -200 ml Results Result Diagram: 01/15/19 0535 01/15/19 0535 Results 24hrs Laboratory Tests Test 01/15/19 05:35 White Blood Count 5.9 Red Blood Count 3.56 L Hemoglobin 9.3 L Hematocrit 30.2 L Mean Corpuscular Volume 84.8 Mean Corpuscular Hemoglobin 26.1 L Mean Corpuscular Hemoglobin Concent 30.8 L Red Cell Distribution Width 17.2 H Platelet Count 155 Mean Platelet Volume 9.8 Immature Granulocytes % 0.500 H Neutrophils % 76.5 Lymphocytes % 13.1 L Monocytes % 8.1 Eosinophils % 1.5 Basophils % 0.3 Nucleated Red Blood Cells % 0.0 Immature Granulocytes # 0.030 Neutrophils # 4.5 Lymphocytes # 0.8 Monocytes # 0.5 Eosinophils # 0.1 Basophils # 0.0 Nucleated Red Blood Cells # 0.0 Sodium Level 143 Potassium Level 3.2 L Chloride Level 110 Carbon Dioxide Level 23 Anion Gap 10 Blood Urea Nitrogen 32 H Creatinine 1.20 Est Glomerular Filtrat Rate mL/min Glucose Level 119 Calcium Level 9.1 Phosphorus Level 2.7 Magnesium Level 2.1 Medications Medication Current Medications Apixaban (Eliquis) 2.5 mg BID PO Last administered on 01/15/19 08:12; Admin Dose 2.5 MG; Start 01/13/19 at 21:00 Atorvastatin Calcium (Lipitor) 80 mg QHS PO Last administered on 01/14/19 22:27; Admin Dose 80 MG; Start 01/13/19 at 21:00 Clopidogrel Bisulfate (plaVIX) 75 mg DAILY PO Last administered on 01/15/19 08:11; Admin Dose 75 MG; Start 01/14/19 at 09:00 Ferrous Sulfate (Ferrous Sulfate (Ec)) 325 mg DAILY PO Last administered on 01/15/19 08:11; Admin Dose 325 MG; Start 01/14/19 at 09:00 Albuterol (Proventil 0.083% (Neb)) 2.5 mg Q2H RESP THERAPY PRN HHN SHORTNESS OF BREATH Last administered on 01/15/19 08:23; Admin Dose 2.5 MG; Start 01/13/19 at 18:30 Fluticasone/ Vilanterol (Breo Ellipta 100-25 Mcg Inh) 1 inh DAILY INH Last administered on 01/15/19 08:11; Admin Dose 1 INH; Start 01/14/19 at 09:00 IV Flush (NS 3 ml) 3 ml PER PROTOCOL IV ; Start 01/13/19 at 18:30 Lorazepam (Ativan) 0.5 mg Q6H PRN IV .ANXIETY; Start 01/13/19 at 18:30 Ondansetron HCl (Zofran Inj) 4 mg Q6H PRN IV NAUSEA/VOMITING; Start 01/13/19 at 18:30 Nitroglycerin (Nitroglycerin (Sl Tab) 0.4 Mg) 1 tab Q5M PRN SL .CHEST PAIN; Start 01/13/19 at 18:30 Acetaminophen (Tylenol Tab) 650 mg Q6H PRN PO .PAIN 1-3 OR TEMP; Start 01/13/19 at 18:30 Docusate Sodium (Colace) 100 mg Q12H PRN PO .CONSTIPATION; Start 01/13/19 at 18:30 Magnesium Hydroxide (Milk Of Mag) 30 ml DAILY PRN PO .CONSTIPATION; Start 01/13/19 at 18:30 Cefepime HCl 50 ml @ 100 mls/hr Q12 IVPB Last administered on 01/15/19at 08:16; Admin Dose 100 MLS/HR; Start 01/14/19 at 09:30 Spironolactone (Aldactone) 25 mg DAILY PO Last administered on 01/15/19at 08:11; Admin Dose 25 MG; Start 01/14/19 at 12:00 Bumetanide 2 mg/ Dextrose 25 ml @ 50 mls/hr Q8H IV Last administered on 01/15/19at 13:09; Admin Dose 50 MLS/HR; Start 01/15/19 at 14:00 DYLAN LUGO MD Jan 15, 2019 13:48
[2019-01-15 15:24] VITALS: BP 102/61; PULSE 76; RESP 20
--- NOTE | 2019-01-15 16:16 | CONS ---
DATE OF ADMISSION: 01/13/2019 DATE OF CONSULTATION: 01/15/2019 TYPE OF CONSULTATION: Infectious Disease. REASON FOR CONSULTATION: Antibiotic management. HISTORY OF PRESENT ILLNESS: María Elena Samuel is a 73-year-old male who comes in with shortness of br eath and history of CHF and asthma. The patient notes that his ankles have been swollen over the las t few days. Denies fever or chills. Denies chest pain. His past problems include: 1. Status post angioplasty. 2. Chronic obstructive pulmonary disease. 3. Pulmonary edema. 4. Coronary artery disease with stent placement and congestive heart failure. 5. Atrial fibrillation. 6. Pacemaker. 7. Peripheral artery disease. 8. Ischemic cardiomyopathy. PAST MEDICAL HISTORY: As outlined. FAMILY HISTORY: Noncontributory. SOCIAL HISTORY: He is a former smoker. He does not drink or abuse drugs. ALLERGIES: NONE TO PENICILLIN, SULFA OR FOODS. MEDICATIONS: Per chart. REVIEW OF SYSTEMS: Noncontributory. PHYSICAL EXAMINATION: GENERAL: The patient is in no acute distress. VITAL SIGNS: Stable. He is afebrile. SKIN: Without generalized rash. HEENT: Within normal limits. NECK: Supple. LYMPH NODES: None palpable. CHEST: Decreased breath sounds at the bases. HEART: Without murmur or gallop. ABDOMEN: Soft, nontender, without organosplenomegaly or masses. EXTREMITIES: Without cyanosis, clubbing, or edema. RECTAL AND GENITAL: Deferred. NEUROLOGIC: No focal neurological abnormalities. ANCILLARY LABORATORY DATA: On admission, white count 5.9 with 68% neutrophils, H and H of 10.1 and 3 2.9, platelet count 186,000. BUN and creatinine 45/1.55. Glucose random of 128. Patient was initially started albuterol, Proventil and Atrovent. The patient is on Eliquis and silde nafil for his lungs. Chest x-ray: No acute abnormalities. The patient felt to have COPD and congestive heart failure. HOSPITAL COURSE; Blood cultures are negative. Chest x-ray shows interstitial edema suggesting cardi opulmonary congestion, right mid lung and basilar consolidation, moderate right and small left pleura l effusions are mildly increased. Patient with acute on chronic systolic heart failure. The patient follows with Dr. Lara. Echo from 08/2018 showed an ejection fraction of 20% and significant p ulmonary hypertension. Dr. Kishor Garivn was called for recommendations and diuretics, patient with an AICD is noted. Currently, white count is 5.9. The patient is feeling better today, well-nourishe d gentleman in no acute distress. A renal ultrasound shows mild atrophy bilateral kidneys, no hydron ephrosis or nephrolithiasis, intrinsic renal disease. The patient is currently on cefepime in view of the fact that he is still somewhat hypotensive, quest ionable pneumonia, although given normal white count may just be congestive heart failure. Procalcit onin was ordered. Continue diuretics, supplemental oxygen and if the procalcitonin is negative, we w ill stop the cefepime. I will dictate my findings to the hospitalist and to the aforementioned consu ltants including Dr. Garvin. Dictated By: TONY MORAN MD, JD/ALY Conf#: [id number] DID#: [id number] CC: IDA PERAZA MD;*End*
[2019-01-15 19:14] VITALS: BP 97/57; PULSE 90; RESP 19
[2019-01-15] MEDS: ATORVASTATIN 80 MG TAB PO SCH (20:17)
[2019-01-16 00:08] VITALS: BP 98/50; PULSE 79; RESP 19
[2019-01-16 03:51] VITALS: BP 91/50; PULSE 73; RESP 20
[2019-01-16] MEDS: BUMETANIDE 2 MG in DEXTROSE 5% 17 ML IV SCH (06:04)
[2019-01-16 07:29] VITALS: BP 98/68; PULSE 78; RESP 19
[2019-01-16] MEDS ORDERED: POTASSIUM CHLORIDE 20 MEQ POWDER FOR ORAL SOLN PO ONE (08:00)
--- NOTE | 2019-01-16 08:09 | CONS ---
Assessment/Plan Assessment/Plan Hospital Course (Demo Recall) Acute on chronic systolic heart failure: Unclear trigger this time. Now much better with aggressive diuresis and close to euvolemic NSVT: run of NSVT 01/15/19 which appears to have been successfully terminated with ATP Acute on chronic renal failure: Cr has fluctuated and as high as 2 before. Outpt baseline is ~1.2-1.6 when stable. Currently 1.5 with diuresis Lactic acidosis: due to hypoperfusion secondary to ADHF. Improved Severe pulmonary HTN: PAP as high as 85 mmHg recently but closer to 70mmHg when compensated. Likely combination of heart failure and intrinsic lung disease H/o anterior STEMI: occurred 09/16/17. s/p PCI of prox-mid LAD. Ischemic cardiomyopathy: EF 20% and unchanged from post PCI 12/04 echo at [facility] PAD: right iliac 95% seen on cath 09/03. Considering outpt revascularization but pt refused. CAD: attempted PCI of PLUMBING [employer] HEATING [employer]OR of mid Cx and prox RCA by me 11/22/17 which was unsuccessful but had successful PCI 12/01/17 at [facility]. Now fully revascularized. s/p [employer] ICD 01/2018 Paroxysmal atrial fibrillation: occurred during STEMI. 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 He often has fluctuations with his renal function as he gets diuresed so it may even continue to ris slightly tomorrow but often settles back down to baseline once he is on PO diuretics -change to home dose of bumex 1mg PO BID for now, may ultimately need TID dosing as outpt -trial of bisoprolol 2.5mg daily if BP tolerates in setting of NSVT -check noncontrast chest CT to evaluate underlying right lung pathology -aldactone 25mg -hold losartan as BP has not tolerated in the past -continue Eliquis 2.5mg BID -plavix 75mg -lipitor 80mg Consultation Date/Type/Reason Admit Date/Time Jan 13, 2019 at 18:31 Initial Consult Date 01/14/19 Type of Consult Cardiology Requesting Provider: IDA PERAZA MD Date/Time of Note DATE: 01/16/19 TIME: 08:01 24 HR Interval Summary Free Text/Dictation Diuresed well per pt with "many many" urinations though documented UOP may not be accurate. Feels much better. Had a run of NSVT which appears to have been successfully terminated with ATP. He had no symptoms. Exam/Review of Systems Vital Signs Vitals Vital Signs Date Temp Pulse Resp B/P (MAP) Pulse Ox O2 O2 Flow FiO2 Time Delivery Rate 01/16/19 97.6 78 19 98/68 (78) 94 Room Air 07:29 01/16/19 2.0 01:54 Intake and Output 01/15/19 01/15/19 01/16/19 1515:00 23:00 07:00 IntakeIntake Total 540 ml 560 ml 440 ml OutputOutput Total 300 ml 600 ml 1100 ml BalanceBalance 240 ml -40 ml -660 ml Exam Constitutional: alert, oriented Psych: no complaints, nl mood/affect Head: normocephalic, atraumatic Neck: jvd (8cm) Respiratory: crackles/rales; No clear to auscultation (mild crackles much improved) Cardiovascular: regular rate and rhythm; No edema Gastrointestinal: soft, non-tender; No distended Neurological: nl mental status, nl speech Labs Result Diagram: 01/16/19 0549 01/16/19 0549 Results 24hrs Laboratory Tests Test 01/16/19 05:49 White Blood Count 7.1 # Red Blood Count 4.07 L Hemoglobin 10.7 L Hematocrit 34.0 L Mean Corpuscular Volume 83.5 Mean Corpuscular Hemoglobin 26.3 L Mean Corpuscular Hemoglobin Concent 31.5 L Red Cell Distribution Width 17.3 H Platelet Count 188 # Mean Platelet Volume 9.9 Immature Granulocytes % 0.400 Neutrophils % 73.6 Lymphocytes % 14.1 L Monocytes % 8.4 Eosinophils % 3.1 Basophils % 0.4 Nucleated Red Blood Cells % 0.0 Immature Granulocytes # 0.030 Neutrophils # 5.2 Lymphocytes # 1.0 Monocytes # 0.6 Eosinophils # 0.2 Basophils # 0.0 Nucleated Red Blood Cells # 0.0 Sodium Level 142 Potassium Level 3.7 Chloride Level 102 Carbon Dioxide Level 26 Anion Gap 14 H Blood Urea Nitrogen 34 H Creatinine 1.50 H Est Glomerular Filtrat Rate mL/min Glucose Level 140 Calcium Level 10.0 Phosphorus Level 3.7 Magnesium Level 2.3 Medications Medications Current Medications Apixaban (Eliquis) 2.5 mg BID PO Last administered on 01/15/19 20:18; Admin Dose 2.5 MG; Start 01/13/19 at 21:00 Atorvastatin Calcium (Lipitor) 80 mg QHS PO Last administered on 01/15/19 20:17; Admin Dose 80 MG; Start 01/13/19 at 21:00 Clopidogrel Bisulfate (plaVIX) 75 mg DAILY PO Last administered on 01/15/19 08:11; Admin Dose 75 MG; Start 01/14/19 at 09:00 Ferrous Sulfate (Ferrous Sulfate (Ec)) 325 mg DAILY PO Last administered on 01/15/19 08:11; Admin Dose 325 MG; Start 01/14/19 at 09:00 Albuterol (Proventil 0.083% (Neb)) 2.5 mg Q2H RESP THERAPY PRN HHN SHORTNESS OF BREATH Last administered on 01/15/19 21:55; Admin Dose 2.5 MG; Start 01/13/19 at 18:30 Fluticasone/ Vilanterol (Breo Ellipta 100-25 Mcg Inh) 1 inh DAILY INH Last administered on 01/15/19 08:11; Admin Dose 1 INH; Start 01/14/19 at 09:00 IV Flush (NS 3 ml) 3 ml PER PROTOCOL IV ; Start 01/13/19 at 18:30 Lorazepam (Ativan) 0.5 mg Q6H PRN IV .ANXIETY; Start 01/13/19 at 18:30 Ondansetron HCl (Zofran Inj) 4 mg Q6H PRN IV NAUSEA/VOMITING; Start 01/13/19 at 18:30 Nitroglycerin (Nitroglycerin (Sl Tab) 0.4 Mg) 1 tab Q5M PRN SL .CHEST PAIN; Start 01/13/19 at 18:30 Acetaminophen (Tylenol Tab) 650 mg Q6H PRN PO .PAIN 1-3 OR TEMP; Start 01/13/19 at 18:30 Docusate Sodium (Colace) 100 mg Q12H PRN PO .CONSTIPATION; Start 01/13/19 at 18:30 Magnesium Hydroxide (Milk Of Mag) 30 ml DAILY PRN PO .CONSTIPATION; Start 01/13/19 at 18:30 Cefepime HCl 50 ml @ 100 mls/hr Q12 IVPB Last administered on 7/30/19at 20:17; Admin Dose 100 MLS/HR; Start 01/14/19 at 09:30 Spironolactone (Aldactone) 25 mg DAILY PO Last administered on 01/15/19at 08:11; Admin Dose 25 MG; Start 01/14/19 at 12:00 Bumetanide 2 mg/ Dextrose 25 ml @ 50 mls/hr Q8H IV Last administered on 01/16/19at 06:04; Admin Dose 50 MLS/HR; Start 01/15/19 at 14:00 Potassium Chloride (Potassium Chloride Pwd/Soln) 40 meq ONCE ONCE PO ; Start 01/16/19 at 08:00; Stop 01/16/19 at 08:01; Status JUANITO LOZANO Jan 16, 2019 08:09
[2019-01-16] MEDS: FERROUS SULFATE (EC) 325 MG TAB PO SCH (08:29)
[2019-01-16] MEDS: CLOPIDOGREL 75 MG TAB PO SCH (08:29)
[2019-01-16] MEDS: CEFEPIME 1GM/50 ML (PMX) 50 ML IVPB SCH (08:29)
[2019-01-16] MEDS: APIXABAN 5 MG TABLET PO SCH ×2 (08:29→20:40)
[2019-01-16] MEDS: SPIRONOLACTONE 25 MG TAB PO SCH (08:30)
[2019-01-16] MEDS: FLUTICASONE/VILANTEROL 100-25 INH SCH (08:30)
[2019-01-16] MEDS ORDERED: BISOPROLOL 5 MG TAB PO SCH (09:00)
--- NOTE | 2019-01-16 10:18 | CONS ---
Assessment/Plan Assessment/Plan Assessment/Plan (Daily) 1. Acute kidney injury on CKD III due to Hemodynamics from CHF 2. acute on chronic Systolic HF with EF 20% 3. Severe pulmonary HTN 4. Ischemic CM with EF 20% s/p PCI in 11/2017 at [facility] 5. H/o CAD - attempted PCI of HAND SCREEN PRINTER of mid Cx and prox RCA by me 11/22/17 which was unsuccessful but had successful PCI 12/01/17 at [facility]. Now fully revascularized. 5. H/o Paroxysmal atrial fibrillation s/p AICD placement 6. H/o Chronic respiratory failur from COPD on home oxygen Plan: pt still intermittently c/o SOB< SBP in 90s, Saturation 94% on 3 L NC S/p IV bumex for 2 days, -K 3.7, BUN/Cr 34/1.5 - changed to bumex 1 mg PO BID Pulmonary and Cardiology has been following on case will assess Cr and saturation in AM if pt needs more diuresis Will follow up Consultation Date/Type/Reason Admit Date/Time Jan 13, 2019 at 18:31 Initial Consult Date 01/14/19 Type of Consult NEPHROLOGY Requesting Provider: IDA PERAZA MD Date/Time of Note DATE: 01/16/19 TIME: 10:18 24 HR Interval Summary Free Text/Dictation pt still intermittently c/o SOB< SBP in 90s, Saturation 94% on 3 L NC Exam/Review of Systems Exam Vitals Vital Signs Date Temp Pulse Resp B/P (MAP) Pulse Ox O2 O2 Flow FiO2 Time Delivery Rate 01/16/19 Nasal 3.0 07:59 Cannula 01/16/19 97.6 78 19 98/68 (78) 94 07:29 Intake and Output 01/15/19 01/15/19 01/16/19 1515:00 23:00 07:00 IntakeIntake Total 540 ml 560 ml 440 ml OutputOutput Total 300 ml 600 ml 1100 ml BalanceBalance 240 ml -40 ml -660 ml Exam Constitutional: alert, oriented, no acute distress Neck: jvd (at angle of jaw) Respiratory: BIlatearl crackles upto midlung Cardiovascular: regular rate and rhythm, SM + on exam Gastrointestinal: soft, non-tender; ND, BS+ Neurological: nl mental status, nl speech Pitting edema on LE Results Result Diagram: 01/16/19 0549 01/16/19 0549 Results 24hrs Laboratory Tests Test 01/16/19 05:49 White Blood Count 7.1 # Red Blood Count 4.07 L Hemoglobin 10.7 L Hematocrit 34.0 L Mean Corpuscular Volume 83.5 Mean Corpuscular Hemoglobin 26.3 L Mean Corpuscular Hemoglobin Concent 31.5 L Red Cell Distribution Width 17.3 H Platelet Count 188 # Mean Platelet Volume 9.9 Immature Granulocytes % 0.400 Neutrophils % 73.6 Lymphocytes % 14.1 L Monocytes % 8.4 Eosinophils % 3.1 Basophils % 0.4 Nucleated Red Blood Cells % 0.0 Immature Granulocytes # 0.030 Neutrophils # 5.2 Lymphocytes # 1.0 Monocytes # 0.6 Eosinophils # 0.2 Basophils # 0.0 Nucleated Red Blood Cells # 0.0 Sodium Level 142 Potassium Level 3.7 Chloride Level 102 Carbon Dioxide Level 26 Anion Gap 14 H Blood Urea Nitrogen 34 H Creatinine 1.50 H Est Glomerular Filtrat Rate mL/min Glucose Level 140 Calcium Level 10.0 Phosphorus Level 3.7 Magnesium Level 2.3 Medications Medication Current Medications Apixaban (Eliquis) 2.5 mg BID PO Last administered on 01/16/19 08:29; Admin Dose 2.5 MG; Start 01/13/19 at 21:00 Atorvastatin Calcium (Lipitor) 80 mg QHS PO Last administered on 01/15/19 20:17; Admin Dose 80 MG; Start 01/13/19 at 21:00 Clopidogrel Bisulfate (plaVIX) 75 mg DAILY PO Last administered on 01/16/19 08:29; Admin Dose 75 MG; Start 01/14/19 at 09:00 Ferrous Sulfate (Ferrous Sulfate (Ec)) 325 mg DAILY PO Last administered on 01/16/19 08:29; Admin Dose 325 MG; Start 01/14/19 at 09:00 Albuterol (Proventil 0.083% (Neb)) 2.5 mg Q2H RESP THERAPY PRN HHN SHORTNESS OF BREATH Last administered on 01/15/19 21:55; Admin Dose 2.5 MG; Start 01/13/19 at 18:30 Fluticasone/ Vilanterol (Breo Ellipta 100-25 Mcg Inh) 1 inh DAILY INH Last administered on 01/16/19 08:30; Admin Dose 1 INH; Start 01/14/19 at 09:00 IV Flush (NS 3 ml) 3 ml PER PROTOCOL IV ; Start 01/13/19 at 18:30 Lorazepam (Ativan) 0.5 mg Q6H PRN IV .ANXIETY; Start 01/13/19 at 18:30 Ondansetron HCl (Zofran Inj) 4 mg Q6H PRN IV NAUSEA/VOMITING; Start 01/13/19 at 18:30 Nitroglycerin (Nitroglycerin (Sl Tab) 0.4 Mg) 1 tab Q5M PRN SL .CHEST PAIN; Start 01/13/19 at 18:30 Acetaminophen (Tylenol Tab) 650 mg Q6H PRN PO .PAIN 1-3 OR TEMP; Start 01/13/19 at 18:30 Docusate Sodium (Colace) 100 mg Q12H PRN PO .CONSTIPATION; Start 01/13/19 at 18:30 Magnesium Hydroxide (Milk Of Mag) 30 ml DAILY PRN PO .CONSTIPATION; Start 01/13/19 at 18:30 Cefepime HCl 50 ml @ 100 mls/hr Q12 IVPB Last administered on 01/16/19at 08:29; Admin Dose 100 MLS/HR; Start 01/14/19 at 09:30 Spironolactone (Aldactone) 25 mg DAILY PO Last administered on 01/16/19at 08:30; Admin Dose 25 MG; Start 01/14/19 at 12:00 Bumetanide (Bumex) 1 mg BID DIURETICS PO ; Start 01/16/19 at 18:00 Bisoprolol Fumarate (Zebeta) 2.5 mg DAILY PO ; Start 01/16/19 at 09:00 DYLAN LUGO MD Jan 16, 2019 10:18
[2019-01-16 11:20] VITALS: BP 96/67; PULSE 76; RESP 18
--- NOTE | 2019-01-16 11:47 | CONS ---
Consult Date/Type/Reason Admit Date/Time Jan 13, 2019 at 18:31 Initial Consult Date 01/14/19 Type of Consult Pulmonary Requesting Provider: IDA PERAZA MD Date/Time of Note DATE: 01/16/19 TIME: 11:43 Subjective Patient comfortable this morning no respiratory distress. Ventricular tachycardia overnight. Objective Vital Signs Date Temp Pulse Resp B/P (MAP) Pulse Ox O2 O2 Flow FiO2 Time Delivery Rate 01/16/19 98.1 76 18 96/67 (77) 95 Nasal 11:20 Cannula 01/16/19 3.0 07:59 Intake and Output 01/15/19 01/15/19 01/16/19 1515:00 23:00 07:00 IntakeIntake Total 540 ml 560 ml 440 ml OutputOutput Total 300 ml 600 ml 1100 ml BalanceBalance 240 ml -40 ml -660 ml Exam GENERAL: Well-nourished well-developed gentleman comfortable at rest no acute distress VITAL SIGNS: per chart NECK: Supple. No JVD or lymphadenopathy. CARDIAC EXAM: S1, S2. No added sounds or murmurs. CHEST: Diminished air entry at bases ABDOMEN: Soft, nontender. No guarding or rebound. EXTREMITIES: No cyanosis, clubbing or edema. NEUROLOGIC: Generalized weakness. No focal deficits. Results/Medications Result Diagram: 01/16/19 0549 01/16/19 0549 Results 24 hrs Laboratory Tests Test 01/16/19 05:49 White Blood Count 7.1 # Red Blood Count 4.07 L Hemoglobin 10.7 L Hematocrit 34.0 L Mean Corpuscular Volume 83.5 Mean Corpuscular Hemoglobin 26.3 L Mean Corpuscular Hemoglobin Concent 31.5 L Red Cell Distribution Width 17.3 H Platelet Count 188 # Mean Platelet Volume 9.9 Immature Granulocytes % 0.400 Neutrophils % 73.6 Lymphocytes % 14.1 L Monocytes % 8.4 Eosinophils % 3.1 Basophils % 0.4 Nucleated Red Blood Cells % 0.0 Immature Granulocytes # 0.030 Neutrophils # 5.2 Lymphocytes # 1.0 Monocytes # 0.6 Eosinophils # 0.2 Basophils # 0.0 Nucleated Red Blood Cells # 0.0 Sodium Level 142 Potassium Level 3.7 Chloride Level 102 Carbon Dioxide Level 26 Anion Gap 14 H Blood Urea Nitrogen 34 H Creatinine 1.50 H Est Glomerular Filtrat Rate mL/min Glucose Level 140 Calcium Level 10.0 Phosphorus Level 3.7 Magnesium Level 2.3 Medications Current Medications Apixaban (Eliquis) 2.5 mg BID PO Last administered on 01/16/19 08:29; Admin Dose 2.5 MG; Start 01/13/19 at 21:00 Atorvastatin Calcium (Lipitor) 80 mg QHS PO Last administered on 01/15/19 20:17; Admin Dose 80 MG; Start 01/13/19 at 21:00 Clopidogrel Bisulfate (plaVIX) 75 mg DAILY PO Last administered on 01/16/19 08:29; Admin Dose 75 MG; Start 01/14/19 at 09:00 Ferrous Sulfate (Ferrous Sulfate (Ec)) 325 mg DAILY PO Last administered on 01/16/19 08:29; Admin Dose 325 MG; Start 01/14/19 at 09:00 Albuterol (Proventil 0.083% (Neb)) 2.5 mg Q2H RESP THERAPY PRN HHN SHORTNESS OF BREATH Last administered on 01/15/19at 21:55; Admin Dose 2.5 MG; Start 01/13/19 at 18:30 Fluticasone/ Vilanterol (Breo Ellipta 100-25 Mcg Inh) 1 inh DAILY INH Last administered on 01/16/19at 08:30; Admin Dose 1 INH; Start 01/14/19 at 09:00 IV Flush (NS 3 ml) 3 ml PER PROTOCOL IV ; Start 01/13/19 at 18:30 Lorazepam (Ativan) 0.5 mg Q6H PRN IV .ANXIETY; Start 01/13/19 at 18:30 Ondansetron HCl (Zofran Inj) 4 mg Q6H PRN IV NAUSEA/VOMITING; Start 01/13/19 at 18:30 Nitroglycerin (Nitroglycerin (Sl Tab) 0.4 Mg) 1 tab Q5M PRN SL .CHEST PAIN; Start 01/13/19 at 18:30 Acetaminophen (Tylenol Tab) 650 mg Q6H PRN PO .PAIN 1-3 OR TEMP; Start 01/13/19 at 18:30 Docusate Sodium (Colace) 100 mg Q12H PRN PO .CONSTIPATION; Start 01/13/19 at 18:30 Magnesium Hydroxide (Milk Of Mag) 30 ml DAILY PRN PO .CONSTIPATION; Start 01/13/19 at 18:30 Spironolactone (Aldactone) 25 mg DAILY PO Last administered on 01/16/19at 08:30; Admin Dose 25 MG; Start 01/14/19 at 12:00 Bumetanide (Bumex) 1 mg BID DIURETICS PO ; Start 01/16/19 at 18:00 Bisoprolol Fumarate (Zebeta) 2.5 mg DAILY PO Last administered on 01/16/19at 11: 02; Admin Dose 2.5 MG; Start 01/16/19 at 09:00 Cefepime HCl 50 ml @ 100 mls/hr Q24H IVPB ; Start 01/17/19 at 09:00 Assessment/Plan Hospital Course (Demo Recall) IMPRESSION: 1. Acute on chronic congestive cardiac failure, likely diastolic dysfunction. Clinically improved 2. Questionable pneumonia, although I think unlikely given normal white blood cell count. I will check procalcitonin. 3. Decreased ejection fraction with pulmonary hypertension. 4. Chronic kidney disease. PLAN: 1. Continue diuretics. Consider transition to p.o. diuretics 2. Supplemental oxygen. 3. Bronchodilators. 4. Procalcitonin not consistent with active infection. Consider DC antibiotics 5. DVT and GI prophylaxis. Discussed with cardiology anticipate discharge tomorrow if no further arrhythmias CARLO MENARD MD, [facility] Jan 16, 2019 11:47
[2019-01-16] MEDS ORDERED: morphine 2 MG INJ IV PRN (13:00)
[2019-01-16] MEDS ORDERED: FAMOTIDINE 20 MG INJ IV ONE (13:00)
[2019-01-16] MEDS ORDERED: LIDOCAINE/MYLANTA 40 ML BTL PO ONE (14:30)
[2019-01-16 15:20] VITALS: BP 87/48; PULSE 55; RESP 18
[2019-01-16] MEDS: SUCRALFATE (100 MG/ML) 10ML CUP PO SCH ×2 (17:35→20:40)
[2019-01-16] MEDS: PANTOPRAZOLE (EC) 40 MG TAB PO SCH (17:35)
[2019-01-16] MEDS: BUMETANIDE 1 MG TAB PO SCH (17:35)
--- NOTE | 2019-01-16 17:45 | PN ---
Date/Time of Note Date/Time of Note DATE: 01/16/19 TIME: 17:43 Objective Vitals Vital Signs Date Temp Pulse Resp B/P (MAP) Pulse Ox O2 O2 Flow FiO2 Time Delivery Rate 01/16/19 97.8 55 18 87/48 (61) 95 Nasal 15:20 Cannula 01/16/19 3.0 07:59 Intake and Output 01/15/19 01/15/19 01/16/19 1515:00 23:00 07:00 IntakeIntake Total 540 ml 560 ml 440 ml OutputOutput Total 300 ml 600 ml 1100 ml BalanceBalance 240 ml -40 ml -660 ml Results Result Diagram: 01/16/19 0549 01/16/19 0549 Medications Medications Current Medications Apixaban (Eliquis) 2.5 mg BID PO Last administered on 01/16/19 08:29; Admin Dose 2.5 MG; Start 01/13/19 at 21:00 Atorvastatin Calcium (Lipitor) 80 mg QHS PO Last administered on 01/15/19at 20:17; Admin Dose 80 MG; Start 01/13/19 at 21:00 Clopidogrel Bisulfate (plaVIX) 75 mg DAILY PO Last administered on 01/16/19 08:29; Admin Dose 75 MG; Start 01/14/19 at 09:00 Ferrous Sulfate (Ferrous Sulfate (Ec)) 325 mg DAILY PO Last administered on 01/16/19 08:29; Admin Dose 325 MG; Start 01/14/19 at 09:00 Albuterol (Proventil 0.083% (Neb)) 2.5 mg Q2H RESP THERAPY PRN HHN SHORTNESS OF BREATH Last administered on 01/15/19at 21:55; Admin Dose 2.5 MG; Start 01/13/19 at 18:30 Fluticasone/ Vilanterol (Breo Ellipta 100-25 Mcg Inh) 1 inh DAILY INH Last administered on 01/16/19at 08:30; Admin Dose 1 INH; Start 01/14/19 at 09:00 IV Flush (NS 3 ml) 3 ml PER PROTOCOL IV ; Start 01/13/19 at 18:30 Lorazepam (Ativan) 0.5 mg Q6H PRN IV .ANXIETY; Start 01/13/19 at 18:30 Ondansetron HCl (Zofran Inj) 4 mg Q6H PRN IV NAUSEA/VOMITING; Start 01/13/19 at 18:30 Nitroglycerin (Nitroglycerin (Sl Tab) 0.4 Mg) 1 tab Q5M PRN SL .CHEST PAIN; Start 01/13/19 at 18:30 Acetaminophen (Tylenol Tab) 650 mg Q6H PRN PO .PAIN 1-3 OR TEMP; Start 01/13/19 at 18:30 Docusate Sodium (Colace) 100 mg Q12H PRN PO .CONSTIPATION; Start 01/13/19 at 18:30 Magnesium Hydroxide (Milk Of Mag) 30 ml DAILY PRN PO .CONSTIPATION; Start 01/13/19 at 18:30 Spironolactone (Aldactone) 25 mg DAILY PO Last administered on 01/16/19at 08:30; Admin Dose 25 MG; Start 01/14/19 at 12:00 Bumetanide (Bumex) 1 mg BID DIURETICS PO Last administered on 01/16/19 17:35; Admin Dose 1 MG; Start 01/16/19 at 18:00 Bisoprolol Fumarate (Zebeta) 2.5 mg DAILY PO Last administered on 01/16/19 11:02; Admin Dose 2.5 MG; Start 01/16/19 at 09:00 Morphine Sulfate (morphine) 2 mg Q4H PRN IV SEVERE PAIN LEVEL 7-10 Last administered on 01/16/19 13:06; Admin Dose 2 MG; Start 01/16/19 at 13:00 Sucralfate (Carafate Susp) 1 gm QID PO Last administered on 01/16/19 17:35; Admin Dose 1 GM; Start 01/16/19 at 17:00 Pantoprazole (Protonix Tab) 40 mg BID@06,18 PO Last administered on 01/16/19 17:35; Admin Dose 40 MG; Start 01/16/19 at 18:00 VTE Prophylaxis Risk score (from Nsg)>0 risk: 4 SCD applied (from Nsg): No SCD contraindication: other Lines/Catheters IV Catheter Type: Trent in Place: No Assessment/Plan Hospital Course Subjective Patient began to have acute onset epigastric pain, relieved with morphine Objective Physical exam General: Patient is laying in bed and answers questions appropriately Mentation: Patient is alert and oriented 4, Head: Normocephalic atraumatic Eyes: EOMI, pupils reactive to light Neck: Supple, nontender, midline Respiratory: Coarse to auscultation bilaterally Cardiovascular: regular rate, no obvious murmurs Gastrointestinal: Epigastric mildly tender to palpation, bowel sounds heard. Neurological: Moves all extremities spontaneously Skin: No new skin lesions Assessment/Plan Epigastric pain, possible gastritis -Relieved with morphine -Lipase negative -CT abdomen pending -Continue Carafate, Protonix -GI cocktail given x1 Questionable mass -Follow-up with patient's regulatory affairs director whether or not to diagnose mass now versus outpatient 1. Acute on chronic systolic heart failure - BNP noted - Cardiology consulted for diuretic recommendations. Patient follows with Dr. Lraa as outpatient and Bumex recently changed to TID per family, inpatient diuresis will be managed by regulatory affairs director as he knows this patient very well and diuretics affects patient very sensitively - CXR noted with central congestion - Monitor I/O and daily weights - ECHO from 08/2018 noted with EF 20% and significant pulmonary HTN 2. SILVESTRE on CKD - Nephrology, Dr. Garvin, consulted for recommendations given patient needs to be on diuretics -Ultrasound noted - avoid nephrotoxic agents -Resolving 3. Pulmonary HTN - noted on recent ECHO and most likely contributing to SOB - Supplemental O2 - Will start Sildenafil if okay with pulmonology and cardiology, however given patient's known pulmonary hypertension and multiple cardiac issues as well as pulmonary issues, will likely defer to outpatient initiation of treatment if any. - pulmonary consultation placed 4. Anemia of chronic disease - stable 5. COPD -Nebulizers - no exacerbation noted 6. Atrial fibrillation - continue home medications - rate controlled - on Eliquis Ischemic cardiomyopathy -Medications per regulatory affairs director Coronary artery disease -Medications per regulatory affairs director 7. PAD - on Plavix 8. AICD 9. Diet - Cardiac History of home O2 use -Off oxygen for now 10. Disposition -Continue diuretic management per regulatory affairs director and nephrology, continue inpatient care -Follow-up with CT abdomen pelvis results CASSY SAUNDERS Jan 16, 2019 17:45
[2019-01-16] MEDS ORDERED: ALBUTEROL/IPRATROPIUM (NEB) 3 ML AMP HHN PRN (18:00)
--- NOTE | 2019-01-16 19:03 | PN ---
DATE: 01/16/2019 SUBJECTIVE: The patient is alert, complaining of epigastric pain. No fevers overnight. LABORATORY DATA: WBC 7.1, no shift, no bands. BUN 34, creatinine 1.50. MICROBIOLOGY: Blood cultures negative. Procalcitonin came back 0.07. DIAGNOSTICS: CT of the chest this morning revealed diffuse bronchial wall thickening, suggestive of airway inflammation, smoking-related airway disease and emphysematous changes to bilateral lungs, mod erate right and small left pleural effusion, adjacent right lobe greater than left lobe dense atelect asis/consolidation. Please see full report in the chart. PHYSICAL EXAMINATION: GENERAL: This is a fragile, well-developed, ill-appearing, elderly man who is awake, in no distress. HEAD: Atraumatic, normocephalic. NECK: Supple. CHEST: Rise symmetrical. Breath sounds diminished at bases. HEART: S1, S2. ABDOMEN: Soft, bowel tones present. Patient has epigastric pain. ASSESSMENT: 1. Acute hypoxemic respiratory failure secondary to congestive heart failure exacerbation. 2. Chronic kidney disease. 3. Severe pulmonary hypertension. 4. Paroxysmal atrial fibrillation. 5. Emphysema. PLAN: The patient is clinically stable. Antibiotics were discontinued. He is being followed by pul monary and cardiology. Continue present care. Consider to add PPIs. Dictated By: RAYMON MANN VIDEO SOFTWARE ENGINEER for TONY GIBSON/[place] Conf#: [id number] DID#: [id number]
[2019-01-16 20:08] VITALS: BP 88/62; PULSE 61; RESP 19
[2019-01-16] MEDS: ALBUTEROL/IPRATROPIUM (NEB) 3 ML AMP HHN SCH (20:22)
[2019-01-16] MEDS: BUDESONIDE (NEB) 0.5MG/2ML AMP HHN SCH (20:22)
[2019-01-16] MEDS: ATORVASTATIN 80 MG TAB PO SCH (20:40)
[2019-01-17] VITALS (8 sets, daily range): BP systolic 81–92; BP diastolic 50–62; PULSE 59–74; RESP 17–19
[2019-01-17] MEDS: PANTOPRAZOLE (EC) 40 MG TAB PO SCH ×3 (05:22→17:56)
[2019-01-17] MEDS: BUMETANIDE 1 MG TAB PO SCH (05:22)
[2019-01-17] MEDS: ALBUTEROL/IPRATROPIUM (NEB) 3 ML AMP HHN SCH ×3 (07:41→21:41)
[2019-01-17] MEDS: BUDESONIDE (NEB) 0.5MG/2ML AMP HHN SCH ×2 (07:51→21:41)
--- NOTE | 2019-01-17 08:57 | CONS ---
Assessment/Plan Assessment/Plan Hospital Course (Demo Recall) Acute on chronic systolic heart failure: Unclear trigger this admission. JVP still slightly high and with pulm edema though renal function worse NSVT: run of NSVT 01/15/19 which appears to have been successfully terminated with ATP. No recurrence Acute on chronic renal failure: Cr has fluctuated and as high as 2 before. Outpt baseline is ~1.2-1.6 when stable. Increased with diuresis and up to 2 Lactic acidosis: due to hypoperfusion secondary to ADHF. Improved Severe pulmonary HTN: PAP as high as 85 mmHg recently but closer to 70mmHg when compensated. Likely combination of heart failure and intrinsic lung disease H/o anterior STEMI: occurred 09/16/17. s/p PCI of prox-mid LAD. Ischemic cardiomyopathy: EF 20% PAD: right iliac 95% seen on cath 09/03. Considering outpt revascularization but pt refused. 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 Now fully revascularized. s/p [employer] ICD 01/2018 Paroxysmal atrial fibrillation: occurred during STEMI. On Eliquis Chronic respiratory failure: now off home oxygen COPD: CT 01/16/19 showed emphysema. R>L pleural effusion with consolidation Tobacco use: heavy use now in remission after [place] Renal function is worse today. On exam he still has elevated JVP but his volume management is very fragile as his renal function often worsens with diuresis even in the setting of volume overload. It could be secondary to his severe pulm HTN which would need a slightly higher right heart filling pressure He should stay one more day and I will hold further bumex today. Please do not give IV fluids -hold bumex today -d/c aldactone with rising Cr -d/c bisoprolol as he did not tolerate it and may have triggered bronchospasm or worsening CHF -continue Eliquis 2.5mg BID -plavix 75mg -lipitor 80mg Consultation Date/Type/Reason Admit Date/Time Jan 13, 2019 at 18:31 Initial Consult Date 01/14/19 Type of Consult Cardiology Requesting Provider: IDA PERAZA MD Date/Time of Note DATE: 01/17/19 TIME: 08:43 24 HR Interval Summary Free Text/Dictation No further arrhythmias. He had dyspnea in the early afternoon which he attributes to the bisoprolol. Had mild abdominal pain which has since resolved Cr 1.5-->2 this am Wants to go home but I explained to him the importance of staying until his renal function stabilizes Exam/Review of Systems Vital Signs Vitals Vital Signs Date Temp Pulse Resp B/P (MAP) Pulse Ox O2 O2 Flow FiO2 Time Delivery Rate 01/17/19 97.9 65 18 81/52 (62) 95 07:24 01/17/19 Nasal 04:07 Cannula 01/17/19 2.0 02:42 Intake and Output 01/16/19 01/16/19 01/17/19 1515:00 23:00 07:00 IntakeIntake Total 100 ml 920 ml 50 ml OutputOutput Total 380 ml 700 ml 600 ml BalanceBalance -280 ml 220 ml -550 ml Exam Constitutional: alert, oriented Psych: no complaints, nl mood/affect Head: normocephalic, atraumatic Neck: jvd (8-9cm) Respiratory: crackles/rales (to mid lungs ); No clear to auscultation Cardiovascular: regular rate and rhythm, systolic murmur (2/6 HSM); No edema Gastrointestinal: soft, non-tender; No distended Neurological: nl mental status, nl speech Labs Result Diagram: 01/17/1944301/17/19443 Results 24hrs Laboratory Tests Test 01/16/19 13:13 01/17/19 04:44 Lipase 39 White Blood Count 6.8 Red Blood Count 4.07 L Hemoglobin 10.7 L Hematocrit 34.5 L Mean Corpuscular Volume 84.8 Mean Corpuscular Hemoglobin 26.3 L Mean Corpuscular Hemoglobin Concent 31.0 L Red Cell Distribution Width 17.3 H Platelet Count 195 Mean Platelet Volume 10.3 Immature Granulocytes % 0.400 Neutrophils % 72.0 Lymphocytes % 16.3 Monocytes % 9.0 Eosinophils % 1.9 Basophils % 0.4 Nucleated Red Blood Cells % 0.0 Immature Granulocytes # 0.030 Neutrophils # 4.9 Lymphocytes # 1.1 Monocytes # 0.6 Eosinophils # 0.1 Basophils # 0.0 Nucleated Red Blood Cells # 0.0 Sodium Level 140 Potassium Level 4.3 Chloride Level 99 Carbon Dioxide Level 26 Anion Gap 15 H Blood Urea Nitrogen 50 H Creatinine 2.00 H Est Glomerular Filtrat Rate mL/min Glucose Level 165 Calcium Level 10.1 Phosphorus Level 4.0 Magnesium Level 2.6 H Medications Medications Current Medications Apixaban (Eliquis) 2.5 mg BID PO Last administered on 01/16/19 20:40; Admin Dose 2.5 MG; Start 01/13/19 at 21:00 Atorvastatin Calcium (Lipitor) 80 mg QHS PO Last administered on 01/16/19 20:40; Admin Dose 80 MG; Start 01/13/19 at 21:00 Clopidogrel Bisulfate (plaVIX) 75 mg DAILY PO Last administered on 01/16/19 08:29; Admin Dose 75 MG; Start 01/14/19 at 09:00 Ferrous Sulfate (Ferrous Sulfate (Ec)) 325 mg DAILY PO Last administered on 01/16/19 08:29; Admin Dose 325 MG; Start 01/14/19 at 09:00 Fluticasone/ Vilanterol (Breo Ellipta 100-25 Mcg Inh) 1 inh DAILY INH Last administered on 01/16/19 08:30; Admin Dose 1 INH; Start 01/14/19 at 09:00 IV Flush (NS 3 ml) 3 ml PER PROTOCOL IV ; Start 01/13/19 at 18:30 Lorazepam (Ativan) 0.5 mg Q6H PRN IV .ANXIETY; Start 01/13/19 at 18:30 Ondansetron HCl (Zofran Inj) 4 mg Q6H PRN IV NAUSEA/VOMITING; Start 01/13/19 at 18:30 Nitroglycerin (Nitroglycerin (Sl Tab) 0.4 Mg) 1 tab Q5M PRN SL .CHEST PAIN; Start 01/13/19 at 18:30 Acetaminophen (Tylenol Tab) 650 mg Q6H PRN PO .PAIN 1-3 OR TEMP; Start 01/13/19 at 18:30 Docusate Sodium (Colace) 100 mg Q12H PRN PO .CONSTIPATION; Start 01/13/19 at 18:30 Magnesium Hydroxide (Milk Of Mag) 30 ml DAILY PRN PO .CONSTIPATION; Start 12/18 02/04 at 18:30 Bisoprolol Fumarate (Zebeta) 2.5 mg DAILY PO Last administered on 01/16/19at 11:02; Admin Dose 2.5 MG; Start 01/16/19 at 09:00 Morphine Sulfate (morphine) 2 mg Q4H PRN IV SEVERE PAIN LEVEL 7-10 Last administered on 01/16/19 13:06; Admin Dose 2 MG; Start 01/16/19 at 13:00 Sucralfate (Carafate Susp) 1 gm QID PO Last administered on 01/16/19at 20:40; Admin Dose 1 GM; Start 01/16/19 at 17:00 Pantoprazole (Protonix Tab) 40 mg BID@,18 PO Last administered on 01/17/19at 05:22; Admin Dose 40 MG; Start 01/16/19 at 18:00 Albuterol/ Ipratropium (Duoneb) 3 ml Q6HWA RESP THERAPY HHN Last administered on 01/17/19at 07:41; Admin Dose 3 ML; Start 01/16/19 at 20:00 Albuterol/ Ipratropium (Duoneb) 3 ml Q2H RESP THERAPY PRN HHN shortness of breath; Start 01/16/19 at 18:00 Budesonide (Pulmicort (Neb)) 0.5 mg BID RESP THERAPY HHN Last administered on 01/17/19at 07:51; Admin Dose 0.5 MG; Start 01/16/19 at 20:00 JUANITO BENITEZ Jan 17, 2019 08:54
[2019-01-17] MEDS ORDERED: CEFEPIME 1GM/50 ML (PMX) 50 ML IVPB SCH (09:00)
[2019-01-17] MEDS: FERROUS SULFATE (EC) 325 MG TAB PO SCH (09:12)
[2019-01-17] MEDS: SUCRALFATE (100 MG/ML) 10ML CUP PO SCH ×5 (09:12→21:17)
[2019-01-17] MEDS: CLOPIDOGREL 75 MG TAB PO SCH (09:12)
[2019-01-17] MEDS: APIXABAN 5 MG TABLET PO SCH ×2 (09:12→21:17)
[2019-01-17] MEDS: FLUTICASONE/VILANTEROL 100-25 INH SCH (09:13)
[2019-01-17] MEDS ORDERED: PIPER-TAZO 2.25 GM (PMX) 50 ML IVPB SCH (09:30)
--- NOTE | 2019-01-17 11:07 | CONS ---
Consult Date/Type/Reason Admit Date/Time Jan 13, 2019 at 18:31 Initial Consult Date 01/14/19 Type of Consult Pulmonary Requesting Provider: IDA PERAZA MD Date/Time of Note DATE: 01/17/19 TIME: 11:05 Subjective Patient comfortable this morning. No further abdominal pain per him and his family at bedside. Denies any shortness of breath. Objective Vital Signs Date Temp Pulse Resp B/P (MAP) Pulse Ox O2 O2 Flow FiO2 Time Delivery Rate 01/17/19 67 90/62 (71) 10:01/17/19 97.9 18 95 07:24 01/17/19 Nasal 04:07 Cannula 01/17/19 2.0 02:42 Intake and Output 01/16/19 01/16/19 01/17/19 1515:00 23:00 07:00 IntakeIntake Total 100 ml 920 ml 50 ml OutputOutput Total 380 ml 700 ml 600 ml BalanceBalance -280 ml 220 ml -550 ml Exam GENERAL: Well-nourished well-developed gentleman comfortable at rest no acute distress VITAL SIGNS: per chart NECK: Supple. No JVD or lymphadenopathy. CARDIAC EXAM: S1, S2. No added sounds or murmurs. CHEST: Diminished air entry at bases ABDOMEN: Soft, nontender. No guarding or rebound. EXTREMITIES: No cyanosis, clubbing or edema. NEUROLOGIC: Generalized weakness. No focal deficits. Results/Medications Result Diagram: 01/17/19 0444 01/17/19 0444 Results 24 hrs Laboratory Tests Test 01/16/19 13:13 01/17/19 04:44 01/17/19 06:00 Lipase 39 White Blood Count 6.8 Red Blood Count 4.07 L Hemoglobin 10.7 L Hematocrit 34.5 L Mean Corpuscular Volume 84.8 Mean Corpuscular Hemoglobin 26.3 L Mean Corpuscular Hemoglobin Concent 31.0 L Red Cell Distribution Width 17.3 H Platelet Count 195 Mean Platelet Volume 10.3 Immature Granulocytes % 0.400 Neutrophils % 72.0 Lymphocytes % 16.3 Monocytes % 9.0 Eosinophils % 1.9 Basophils % 0.4 Nucleated Red Blood Cells % 0.0 Immature Granulocytes # 0.030 Neutrophils # 4.9 Lymphocytes # 1.1 Monocytes # 0.6 Eosinophils # 0.1 Basophils # 0.0 Nucleated Red Blood Cells # 0.0 Sodium Level 140 Potassium Level 4.3 Chloride Level 99 Carbon Dioxide Level 26 Anion Gap 15 H Blood Urea Nitrogen 50 H Creatinine 2.00 H Est Glomerular Filtrat Rate mL/min Glucose Level 165 Calcium Level 10.1 Phosphorus Level 4.0 Magnesium Level 2.6 H Total Bilirubin 0.8 Direct Bilirubin 0.00 Indirect Bilirubin 0.8 Aspartate Amino Transf (AST/SGOT) 91 H Alanine Aminotransferase (ALT/SGPT) 77 H Alkaline Phosphatase 269 H Total Protein 7.2 Albumin 4.0 Medications Current Medications Apixaban (Eliquis) 2.5 mg BID PO Last administered on 01/17/19 09:12; Admin Dose 2.5 MG; Start 01/13/19 at 21:00 Atorvastatin Calcium (Lipitor) 80 mg QHS PO Last administered on 01/16/19at 20:40; Admin Dose 80 MG; Start 01/13/19 at 21:00 Clopidogrel Bisulfate (plaVIX) 75 mg DAILY PO Last administered on 01/17/19 09:12; Admin Dose 75 MG; Start 01/14/19 at 09:00 Ferrous Sulfate (Ferrous Sulfate (Ec)) 325 mg DAILY PO Last administered on 01/17 09:12; Admin Dose 325 MG; Start 01/14/19 at 09:00 Fluticasone/ Vilanterol (Breo Ellipta 100-25 Mcg Inh) 1 inh DAILY INH Last administered on 01/17/19 09:13; Admin Dose 1 INH; Start 01/14/19 at 09:00 IV Flush (NS 3 ml) 3 ml PER PROTOCOL IV ; Start 01/13/19 at 18:30 Lorazepam (Ativan) 0.5 mg Q6H PRN IV .ANXIETY; Start 01/13/19 at 18:30 Ondansetron HCl (Zofran Inj) 4 mg Q6H PRN IV NAUSEA/VOMITING; Start 01/13/19 at 18:30 Nitroglycerin (Nitroglycerin (Sl Tab) 0.4 Mg) 1 tab Q5M PRN SL .CHEST PAIN; Start 01/13/19 at 18:30 Acetaminophen (Tylenol Tab) 650 mg Q6H PRN PO .PAIN 1-3 OR TEMP; Start 01/13/19 at 18:30 Docusate Sodium (Colace) 100 mg Q12H PRN PO .CONSTIPATION; Start 01/13/19 at 18:30 Magnesium Hydroxide (Milk Of Mag) 30 ml DAILY PRN PO .CONSTIPATION; Start 01/13/19 at 18:30 Morphine Sulfate (morphine) 2 mg Q4H PRN IV SEVERE PAIN LEVEL 7-10 Last administered on 01/16/19at 13:06; Admin Dose 2 MG; Start 01/16/19 at 13:00 Sucralfate (Carafate Susp) 1 gm QID PO Last administered on 01/17/19at 09:12; Admin Dose 1 GM; Start 01/16/19 at 17:00 Pantoprazole (Protonix Tab) 40 mg BID@06,18 PO Last administered on 01/17/19at 05:22; Admin Dose 40 MG; Start 01/16/19 at 18:00 Albuterol/ Ipratropium (Duoneb) 3 ml Q6HWA RESP THERAPY HHN Last administered on 01/17/19at 07:41; Admin Dose 3 ML; Start 01/16/19 at 20:00 Albuterol/ Ipratropium (Duoneb) 3 ml Q2H RESP THERAPY PRN HHN shortness of breath; Start 01/16/19 at 18:00 Budesonide (Pulmicort (Neb)) 0.5 mg BID RESP THERAPY HHN Last administered on 01/17/19at 07:51; Admin Dose 0.5 MG; Start 01/16/19 at 20:00 Piperacillin Sod/ Tazobactam Sod 50 ml @ 200 mls/hr Q6 IVPB Last administered on 01/17/19at 09:12; Admin Dose 200 MLS/HR; Start 01/17/19 at 09:30 Assessment/Plan Hospital Course (Demo Recall) IMPRESSION: 1. Acute on chronic congestive cardiac failure, likely diastolic dysfunction. Clinically improved 2. Questionable pneumonia, although I think unlikely given normal white blood cell count. 3. Decreased ejection fraction with pulmonary hypertension. 4. Chronic kidney disease. Acute on chronic renal insufficiency likely secondary to diuretics PLAN: 1. Diuretics held today will reevaluate renal function tomorrow if stable anticipate discharge 2. Supplemental oxygen. 3. Bronchodilators. 4. Antibiotics held given normal procalcitonin 5. DVT and GI prophylaxis. Patient request to be discharged home not to senior care facility CARLO MENARD MD, [facility] Jan 17, 2019 11:07
--- NOTE | 2019-01-17 12:59 | CONS ---
Assessment/Plan Assessment/Plan Assessment/Plan (Daily) 1. Acute kidney injury on CKD III due to Hemodynamics from CHF 2. acute on chronic Systolic HF with EF 20% 3. Severe pulmonary HTN 4. Ischemic CM with EF 20% s/p PCI in 11/2017 at [facility] 5. 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 Now fully revascularized. 5. H/o Paroxysmal atrial fibrillation s/p AICD placement 6. H/o Chronic respiratory failur from COPD on home oxygen Plan: pt still intermittently c/o SOB< SBP in 90s, Saturation 94% on 3 L NC- becomes more SOB with PO bumex S/p IV bumex for 2 days, -K 3.7, BUN/Cr 34/1.5 Pulmonary and Cardiology has been following on case will assess Cr and saturation in AM if pt needs more diuresis Will follow up Consultation Date/Type/Reason Admit Date/Time Jan 13, 2019 at 18:31 Initial Consult Date 01/14/19 Type of Consult NEPHROLOGY Requesting Provider: IDA PERAZA MD Date/Time of Note DATE: 01/17/19 TIME: 12:59 Exam/Review of Systems Exam Vitals Vital Signs Date Temp Pulse Resp B/P (MAP) Pulse Ox O2 O2 Flow FiO2 Time Delivery Rate 01/17/19 97.9 68 18 86/55 (65) 96 11:10 01/17/19 Nasal 2.0 08:00 Cannula Intake and Output 01/16/19 01/16/19 01/17/19 1515:00 23:00 07:00 IntakeIntake Total 100 ml 920 ml 50 ml OutputOutput Total 380 ml 700 ml 600 ml BalanceBalance -280 ml 220 ml -550 ml Exam Constitutional: alert, oriented, no acute distress Neck: jvd (at angle of jaw) Respiratory: BIlatearl crackles upto midlung Cardiovascular: regular rate and rhythm, SM + on exam Gastrointestinal: soft, non-tender; ND, BS+ Neurological: nl mental status, nl speech Pitting edema on LE Results Result Diagram: 01/17/19 0444 01/17/19 0444 Results 24hrs Laboratory Tests Test 01/16/19 13:13 01/17/19 04:44 01/17/19 06:00 Lipase 39 White Blood Count 6.8 Red Blood Count 4.07 L Hemoglobin 10.7 L Hematocrit 34.5 L Mean Corpuscular Volume 84.8 Mean Corpuscular Hemoglobin 26.3 L Mean Corpuscular Hemoglobin Concent 31.0 L Red Cell Distribution Width 17.3 H Platelet Count 195 Mean Platelet Volume 10.3 Immature Granulocytes % 0.400 Neutrophils % 72.0 Lymphocytes % 16.3 Monocytes % 9.0 Eosinophils % 1.9 Basophils % 0.4 Nucleated Red Blood Cells % 0.0 Immature Granulocytes # 0.030 Neutrophils # 4.9 Lymphocytes # 1.1 Monocytes # 0.6 Eosinophils # 0.1 Basophils # 0.0 Nucleated Red Blood Cells # 0.0 Sodium Level 140 Potassium Level 4.3 Chloride Level 99 Carbon Dioxide Level 26 Anion Gap 15 H Blood Urea Nitrogen 50 H Creatinine 2.00 H Est Glomerular Filtrat Rate mL/min Glucose Level 165 Calcium Level 10.1 Phosphorus Level 4.0 Magnesium Level 2.6 H Total Bilirubin 0.8 Direct Bilirubin 0.00 Indirect Bilirubin 0.8 Aspartate Amino Transf (AST/SGOT) 91 H Alanine Aminotransferase (ALT/SGPT) 77 H Alkaline Phosphatase 269 H Total Protein 7.2 Albumin 4.0 Medications Medication Current Medications Apixaban (Eliquis) 2.5 mg BID PO Last administered on 01/17/19 09:12; Admin Dose 2.5 MG; Start 01/13/19 at 21:00 Atorvastatin Calcium (Lipitor) 80 mg QHS PO Last administered on 01/16/19at 20:40; Admin Dose 80 MG; Start 01/13/19 at 21:00 Clopidogrel Bisulfate (plaVIX) 75 mg DAILY PO Last administered on 01/17/19 09:12; Admin Dose 75 MG; Start 01/14/19 at 09:00 Ferrous Sulfate (Ferrous Sulfate (Ec)) 325 mg DAILY PO Last administered on 01/17/19 09:12; Admin Dose 325 MG; Start 01/14/19 at 09:00 Fluticasone/ Vilanterol (Breo Ellipta 100-25 Mcg Inh) 1 inh DAILY INH Last administered on 01/17/19 09:13; Admin Dose 1 INH; Start 01/14/19 at 09:00 IV Flush (NS 3 ml) 3 ml PER PROTOCOL IV ; Start 01/13/19 at 18:30 Lorazepam (Ativan) 0.5 mg Q6H PRN IV .ANXIETY; Start 01/13/19 at 18:30 Ondansetron HCl (Zofran Inj) 4 mg Q6H PRN IV NAUSEA/VOMITING; Start 01/13/19 at 18:30 Nitroglycerin (Nitroglycerin (Sl Tab) 0.4 Mg) 1 tab Q5M PRN SL .CHEST PAIN; Start 01/13/19 at 18:30 Acetaminophen (Tylenol Tab) 650 mg Q6H PRN PO .PAIN 1-3 OR TEMP; Start 01/13/19 at 18:30 Docusate Sodium (Colace) 100 mg Q12H PRN PO .CONSTIPATION; Start 01/13/19 at 18:30 Magnesium Hydroxide (Milk Of Mag) 30 ml DAILY PRN PO .CONSTIPATION; Start 01/13/19 at 18:30 Morphine Sulfate (morphine) 2 mg Q4H PRN IV SEVERE PAIN LEVEL 7-10 Last administered on 01/16/19at 13:06; Admin Dose 2 MG; Start 01/16/19 at 13:00 Sucralfate (Carafate Susp) 1 gm QID PO Last administered on 01/17/19 09:12; Admin Dose 1 GM; Start 01/16/19 at 17:00 Pantoprazole (Protonix Tab) 40 mg BID@06,18 PO Last administered on 01/17/19 05:22; Admin Dose 40 MG; Start 01/16/19 at 18:00 Albuterol/ Ipratropium (Duoneb) 3 ml Q6HWA RESP THERAPY HHN Last administered on 01/17/19at 07:41; Admin Dose 3 ML; Start 01/16/19 at 20:00 Albuterol/ Ipratropium (Duoneb) 3 ml Q2H RESP THERAPY PRN HHN shortness of breath; Start 01/16/19 at 18:00 Budesonide (Pulmicort (Neb)) 0.5 mg BID RESP THERAPY HHN Last administered on 01/17/19 07:51; Admin Dose 0.5 MG; Start 01/16/19 at 20:00 Piperacillin Sod/ Tazobactam Sod 50 ml @ 200 mls/hr Q6 IVPB Last administered on 8/1/19at 09:12; Admin Dose 200 MLS/HR; Start 01/17/19 at 09:30 DYLAN LUGO MD Jan 17, 2019 12:59
--- NOTE | 2019-01-17 14:20 | PN ---
Date/Time of Note Date/Time of Note DATE: 01/17/19 TIME: 14:18 Objective Vitals Vital Signs Date Temp Pulse Resp B/P (MAP) Pulse Ox O2 O2 Flow FiO2 Time Delivery Rate 01/17/19 95 21 13:50 01/17/19 65 20 13:50 01/17/19 97.9 86/55 (65) 11:10 01/17/19 Nasal 2.0 08:00 Cannula Intake and Output 01/16/19 01/16/19 01/17/19 1515:00 23:00 07:00 IntakeIntake Total 100 ml 920 ml 50 ml OutputOutput Total 380 ml 700 ml 600 ml BalanceBalance -280 ml 220 ml -550 ml Results Result Diagram: 01/17/19 0444 01/17/194 Medications Medications Current Medications Apixaban (Eliquis) 2.5 mg BID PO Last administered on 01/17/19at 09:12; Admin Dose 2.5 MG; Start 01/13/19 at 21:00 Atorvastatin Calcium (Lipitor) 80 mg QHS PO Last administered on 01/16/19at 20:40; Admin Dose 80 MG; Start 01/13/19 at 21:00 Clopidogrel Bisulfate (plaVIX) 75 mg DAILY PO Last administered on 01/17/19at 09:12; Admin Dose 75 MG; Start 01/14/19 at 09:00 Ferrous Sulfate (Ferrous Sulfate (Ec)) 325 mg DAILY PO Last administered on 01/17/19at 09:12; Admin Dose 325 MG; Start 01/14/19 at 09:00 Fluticasone/ Vilanterol (Breo Ellipta 100-25 Mcg Inh) 1 inh DAILY INH Last administered on 01/17/19at 09:13; Admin Dose 1 INH; Start 01/14/19 at 09:00 IV Flush (NS 3 ml) 3 ml PER PROTOCOL IV ; Start 01/13/19 at 18:30 Lorazepam (Ativan) 0.5 mg Q6H PRN IV .ANXIETY; Start 01/13/19 at 18:30 Ondansetron HCl (Zofran Inj) 4 mg Q6H PRN IV NAUSEA/VOMITING; Start 01/13/19 at 18:30 Nitroglycerin (Nitroglycerin (Sl Tab) 0.4 Mg) 1 tab Q5M PRN SL .CHEST PAIN; Start 01/13/19 at 18:30 Acetaminophen (Tylenol Tab) 650 mg Q6H PRN PO .PAIN 1-3 OR TEMP; Start 01/13/19 at 18:30 Docusate Sodium (Colace) 100 mg Q12H PRN PO .CONSTIPATION; Start 01/13/19 at 18:30 Magnesium Hydroxide (Milk Of Mag) 30 ml DAILY PRN PO .CONSTIPATION; Start 01/13/19 at 18:30 Morphine Sulfate (morphine) 2 mg Q4H PRN IV SEVERE PAIN LEVEL 7-10 Last administered on 01/16/19at 13:06; Admin Dose 2 MG; Start 01/16/19 at 13:00 Sucralfate (Carafate Susp) 1 gm QID PO Last administered on 01/17/19at 09:12; Admin Dose 1 GM; Start 01/16/19 at 17:00 Pantoprazole (Protonix Tab) 40 mg BID@06,18 PO Last administered on 01/17/19at 05:22; Admin Dose 40 MG; Start 01/16/19 at 18:00 Albuterol/ Ipratropium (Duoneb) 3 ml Q6HWA RESP THERAPY HHN Last administered on 01/17/19at 13:50; Admin Dose 3 ML; Start 01/16/19 at 20:00 Albuterol/ Ipratropium (Duoneb) 3 ml Q2H RESP THERAPY PRN HHN shortness of breath; Start 01/16/19 at 18:00 Budesonide (Pulmicort (Neb)) 0.5 mg BID RESP THERAPY HHN Last administered on 01/17/19at 07:51; Admin Dose 0.5 MG; Start 01/16/19 at 20:00 Piperacillin Sod/ Tazobactam Sod 50 ml @ 200 mls/hr Q6 IVPB Last administered on 01/17/19at 09:12; Admin Dose 200 MLS/HR; Start 01/17/19 at 09:30 VTE Prophylaxis Risk score (from Nsg)>0 risk: 5 SCD applied (from Nsg): Yes Lines/Catheters IV Catheter Type: Trent in Place: No Assessment/Plan Hospital Course Subjective Patient not having any more abdominal pain however still mildly short of breath Objective Physical exam General: Patient is laying in bed and answers questions appropriately Mentation: Patient is alert and oriented 4, Head: Normocephalic atraumatic Eyes: EOMI, pupils reactive to light Neck: Supple, nontender, midline Respiratory: Coarse to auscultation bilaterally Cardiovascular: regular rate, no obvious murmurs Gastrointestinal: Epigastric mildly tender to palpation, bowel sounds heard. Neurological: Moves all extremities spontaneously Skin: No new skin lesions Assessment/Plan Epigastric pain, questionable cholecystitis -Continue IV antibiotics as patient does have a history of cholecystitis that was treated medically in the past -HIDA scan pending -Continue Protonix and Carafate Questionable mass -Spoke with patient's inventory management specialist who knows patient very well, will follow-up outpatient and get a repeat CT scan to further elucidate. 1. Acute on chronic systolic heart failure - BNP noted - Cardiology consulted for diuretic recommendations. Patient follows with Dr. Lara as outpatient and Bumex recently changed to TID per family, inpatient diuresis will be managed by inventory management specialist as he knows this patient very well and diuretics affects patient very sensitively - CXR noted with central congestion - Monitor I/O and daily weights - ECHO from 08/2018 noted with EF 20% and significant pulmonary HTN 2. SILVESTRE on CKD - Nephrology, Dr. Garvin, consulted for recommendations given patient needs to be on diuretics -Ultrasound noted - avoid nephrotoxic agents -Resolving 3. Pulmonary HTN - noted on recent ECHO and most likely contributing to SOB - Supplemental O2 - Will start Sildenafil if okay with pulmonology and cardiology, however given patient's known pulmonary hypertension and multiple cardiac issues as well as pulmonary issues, will likely defer to outpatient initiation of treatment if any. - pulmonary consultation placed 4. Anemia of chronic disease - stable 5. COPD -Nebulizers - no exacerbation noted 6. Atrial fibrillation - continue home medications - rate controlled - on Eliquis Ischemic cardiomyopathy -Medications per inventory management specialist Coronary artery disease -Medications per inventory management specialist 7. PAD - on Plavix 8. AICD 9. Diet - Cardiac History of home O2 use -Off oxygen for now 10. Disposition -Continue diuretic management per inventory management specialist and nephrology, continue inpatient care -pending HIDA results CASSY SAUNDERS Jan 17, 2019 14:20
--- NOTE | 2019-01-17 15:44 | CONS ---
Assessment/Plan Assessment/Plan Hospital Course (Demo Recall) SUBJECTIVE: The patient is alert, looks comfortable. No fevers overnight. MICROBIOLOGY: Blood cultures negative. HIDA scan neg PHYSICAL EXAMINATION: GENERAL: This is a fragile, well-developed, ill-appearing, elderly man who is awake, in no distress. HEAD: Atraumatic, normocephalic. NECK: Supple. CHEST: Rise symmetrical. Breath sounds diminished at bases. HEART: S1, S2. ABDOMEN: Soft, bowel tones present. Patient has epigastric pain. ASSESSMENT: 1. Acute hypoxemic respiratory failure secondary to congestive heart failure exacerbation. 2. Chronic kidney disease. 3. Severe pulmonary hypertension. 4. Paroxysmal atrial fibrillation. 5. Emphysema. PLAN: The patient is clinically stable, off antibiotics. Continue present care, PPIs. f/u cardiology rec-s Consultation Date/Type/Reason Admit Date/Time Jan 13, 2019 at 18:31 Initial Consult Date 01/13/19 Type of Consult id Requesting Provider: IDA PERAZA MD Date/Time of Note DATE: 01/17/19 TIME: 15:42 Exam/Review of Systems Exam Vitals Vital Signs Date Temp Pulse Resp B/P (MAP) Pulse Ox O2 O2 Flow FiO2 Time Delivery Rate 01/17/19 95 21 13:50 01/17/19 65 20 13:50 01/17/19 97.9 86/55 (65) 11:10 01/17/19 Nasal 2.0 08:00 Cannula Intake and Output 01/16/19 01/16/19 01/17/19 1515:00 23:00 07:00 IntakeIntake Total 100 ml 920 ml 50 ml OutputOutput Total 380 ml 700 ml 600 ml BalanceBalance -280 ml 220 ml -550 ml Results Result Diagram: 01/17/19 0444 01/17/19 0444 Results 24hrs Laboratory Tests Test 01/17/19 04:44 01/17/19 06:00 White Blood Count 6.8 Red Blood Count 4.07 L Hemoglobin 10.7 L Hematocrit 34.5 L Mean Corpuscular Volume 84.8 Mean Corpuscular Hemoglobin 26.3 L Mean Corpuscular Hemoglobin Concent 31.0 L Red Cell Distribution Width 17.3 H Platelet Count 195 Mean Platelet Volume 10.3 Immature Granulocytes % 0.400 Neutrophils % 72.0 Lymphocytes % 16.3 Monocytes % 9.0 Eosinophils % 1.9 Basophils % 0.4 Nucleated Red Blood Cells % 0.0 Immature Granulocytes # 0.030 Neutrophils # 4.9 Lymphocytes # 1.1 Monocytes # 0.6 Eosinophils # 0.1 Basophils # 0.0 Nucleated Red Blood Cells # 0.0 Sodium Level 140 Potassium Level 4.3 Chloride Level 99 Carbon Dioxide Level 26 Anion Gap 15 H Blood Urea Nitrogen 50 H Creatinine 2.00 H Est Glomerular Filtrat Rate mL/min Glucose Level 165 Calcium Level 10.1 Phosphorus Level 4.0 Magnesium Level 2.6 H Total Bilirubin 0.8 Direct Bilirubin 0.00 Indirect Bilirubin 0.8 Aspartate Amino Transf (AST/SGOT) 91 H Alanine Aminotransferase (ALT/SGPT) 77 H Alkaline Phosphatase 269 H Total Protein 7.2 Albumin 4.0 Medications Medication Current Medications Apixaban (Eliquis) 2.5 mg BID PO Last administered on 01/17/19 09:12; Admin Dose 2.5 MG; Start 01/13/19 at 21:00 Atorvastatin Calcium (Lipitor) 80 mg QHS PO Last administered on 01/16/19at 20:40; Admin Dose 80 MG; Start 01/13/19 at 21:00 Clopidogrel Bisulfate (plaVIX) 75 mg DAILY PO Last administered on 01/17/19 09:12; Admin Dose 75 MG; Start 01/14/19 at 09:00 Ferrous Sulfate (Ferrous Sulfate (Ec)) 325 mg DAILY PO Last administered on 01/17/19 09:12; Admin Dose 325 MG; Start 01/14/19 at 09:00 Fluticasone/ Vilanterol (Breo Ellipta 100-25 Mcg Inh) 1 inh DAILY INH Last administered on 01/17/19 09:13; Admin Dose 1 INH; Start 01/14/19 at 09:00 IV Flush (NS 3 ml) 3 ml PER PROTOCOL IV ; Start 01/13/19 at 18:30 Lorazepam (Ativan) 0.5 mg Q6H PRN IV .ANXIETY; Start 01/13/19 at 18:30 Ondansetron HCl (Zofran Inj) 4 mg Q6H PRN IV NAUSEA/VOMITING; Start 01/13/19 at 18:30 Nitroglycerin (Nitroglycerin (Sl Tab) 0.4 Mg) 1 tab Q5M PRN SL .CHEST PAIN; S tart 01/13/19 at 18:30 Acetaminophen (Tylenol Tab) 650 mg Q6H PRN PO .PAIN 1-3 OR TEMP; Start 01/13/19 at 18:30 Docusate Sodium (Colace) 100 mg Q12H PRN PO .CONSTIPATION; Start 01/13/19 at 18:30 Magnesium Hydroxide (Milk Of Mag) 30 ml DAILY PRN PO .CONSTIPATION; Start 01/13/19 at 18:30 Morphine Sulfate (morphine) 2 mg Q4H PRN IV SEVERE PAIN LEVEL 7-10 Last administered on 01/16/19at 13:06; Admin Dose 2 MG; Start 01/16/19 at 13:00 Sucralfate (Carafate Susp) 1 gm QID PO Last administered on 01/17/19at 09:12; Admin Dose 1 GM; Start 01/16/19 at 17:00 Pantoprazole (Protonix Tab) 40 mg BID@06,18 PO Last administered on 01/17/19at 05:22; Admin Dose 40 MG; Start 01/16/19 at 18:00 Albuterol/ Ipratropium (Duoneb) 3 ml Q6HWA RESP THERAPY HHN Last administered on 01/17/19at 13:50; Admin Dose 3 ML; Start 01/16/19 at 20:00 Albuterol/ Ipratropium (Duoneb) 3 ml Q2H RESP THERAPY PRN HHN shortness of judith ath; Start 01/16/19 at 18:00 Budesonide (Pulmicort (Neb)) 0.5 mg BID RESP THERAPY HHN Last administered on 01/17/19at 07:51; Admin Dose 0.5 MG; Start 01/16/19 at 20:00 RAYMON MANN NP Jan 17, 2019 15:44
[2019-01-17] MEDS: ATORVASTATIN 80 MG TAB PO SCH (21:17)
[2019-01-18] VITALS (54 sets, daily range): BP systolic 75–102; BP diastolic 47–71; PULSE 60–86; RESP 14–29
[2019-01-18] MEDS: PANTOPRAZOLE (EC) 40 MG TAB PO SCH ×2 (05:55→17:21)
[2019-01-18] MEDS ORDERED: BUMETANIDE 1 MG INJ IV SCH (09:30)
[2019-01-18] MEDS: APIXABAN 5 MG TABLET PO SCH ×2 (09:38→21:08)
[2019-01-18] MEDS: CLOPIDOGREL 75 MG TAB PO SCH (09:38)
[2019-01-18] MEDS: FERROUS SULFATE (EC) 325 MG TAB PO SCH (09:38)
[2019-01-18] MEDS: SUCRALFATE (100 MG/ML) 10ML CUP PO SCH ×4 (09:38→21:08)
[2019-01-18] MEDS: FLUTICASONE/VILANTEROL 100-25 INH SCH (09:39)
--- NOTE | 2019-01-18 09:48 | CONS ---
Assessment/Plan Assessment/Plan Hospital Course (Demo Recall) Cardiogenic shock: Now showing signs of hypoperfusion with cool extremities and worsening renal function. His JVP continues to increase with holding diuretics and his echo shows RA pressure of 15 mmHg. I believe he will benefit from inotropic support with dobutamine Acute on chronic renal failure: Cr has fluctuated and as high as 2 before. Outpt baseline is ~1.2-1.6 when stable. Initially though to be overdiuresis but I think it is due to cardiorenal syndrome from hypoperfusion and poor cardiac output Acute on chronic systolic heart failure: Likely dietary indiscretion. Worsening NSVT: run of NSVT 01/15/19 which appears to have been successfully terminated with ATP. No recurrence Lactic acidosis: due to hypoperfusion secondary to ADHF. Severe pulmonary HTN: PAP as high as 85 mmHg recently but closer to 70mmHg when compensated. Likely combination of heart failure and intrinsic lung disease H/o anterior STEMI: occurred 09/16/17. s/p PCI of prox-mid LAD. Ischemic cardiomyopathy: EF 20% PAD: right iliac 95% seen on cath 09/03. Considering outpt revascularization but pt refused. CAD: attempted PCI of [employer] of mid Cx and prox RCA by me 11/22/17 which was unsuccessful but had successful PCI 12/01/17 at [facility]. Now fully revascularized. s/p [employer] ICD 01/2018 Paroxysmal atrial fibrillation: occurred during STEMI. On Eliquis Chronic respiratory failure: now off home oxygen COPD: CT 01/16/19 showed emphysema. R>L pleural effusion with consolidation Tobacco use: heavy use now in remission [facility] Bed[facility] echo 01/18/19: EF 10% mod-severe MR mod-severe TR pulm HTN PAP 75mmHg IVC up to 2.5cm and no collapse, RA pressure 15mmHg -discussed with pt and son regarding plan and importance of avoiding salt all together -transfer to ICU for low dose dobutamine 2.5mcg/kg/min. If tolerates and no arrhythmias, will increase to 5mcg -restart bumex 2mg IV BID -continue Eliquis 2.5mg BID -plavix 75mg -lipitor 80mg Consultation Date/Type/Reason Admit Date/Time Jan 13, 2019 at 18:31 Initial Consult Date 01/14/19 Type of Consult Cardiology Requesting Provider: IDA PERAZA MD Date/Time of Note DATE: 01/18/19 TIME: 09:39 24 HR Interval Summary Free Text/Dictation Denies any complaints but has not yet ambulated. Cr worse again today up to 2.4 Pt has French food at his bedside with a yogurt drink that has 1.5g of sodium. He states that the food here does not taste good. Exam/Review of Systems Vital Signs Vitals Vital Signs Date Temp Pulse Resp B/P (MAP) Pulse Ox O2 O2 Flow FiO2 Time Delivery Rate 01/18/19 97.6 60 16 87/53 (64) 99 Nasal 07:37 Cannula 01/18/19 2.0 27 00:55 Intake and Output 01/17/19 01/17/19 01/18/19 1515:00 23:00 07:00 IntakeIntake Total 300 ml BalanceBalance 300 ml Exam Constitutional: alert, oriented Psych: no complaints, nl mood/affect Head: normocephalic, atraumatic Neck: jvd (10cm) Respiratory: crackles/rales; No clear to auscultation Cardiovascular: regular rate and rhythm, systolic murmur (2/6 HSM), other (cool extremities ); No edema Gastrointestinal: soft, non-tender; No distended Neurological: nl mental status, nl speech Labs Result Diagram: 01/18/19 0533 01/18/19 0533 Results 24hrs Laboratory Tests Test 01/18/19 05:33 White Blood Count 6.8 Red Blood Count 4.14 L Hemoglobin 10.7 L Hematocrit 35.8 L Mean Corpuscular Volume 86.5 Mean Corpuscular Hemoglobin 25.8 L Mean Corpuscular Hemoglobin Concent 29.9 L Red Cell Distribution Width 17.9 H Platelet Count 195 Mean Platelet Volume 9.9 Immature Granulocytes % 0.300 Neutrophils % 70.8 Lymphocytes % 17.0 Monocytes % 8.1 Eosinophils % 3.2 Basophils % 0.6 Nucleated Red Blood Cells % 0.0 Immature Granulocytes # 0.020 Neutrophils # 4.8 Lymphocytes # 1.2 Monocytes # 0.6 Eosinophils # 0.2 Basophils # 0.0 Nucleated Red Blood Cells # 0.0 Sodium Level 139 Potassium Level 4.1 Chloride Level 99 Carbon Dioxide Level 28 Anion Gap 12 Blood Urea Nitrogen 58 H Creatinine 2.41 H Est Glomerular Filtrat Rate mL/min Glucose Level 145 Calcium Level 9.7 Phosphorus Level 4.9 Magnesium Level 2.6 H Medications Medications Current Medications Apixaban (Eliquis) 2.5 mg BID PO Last administered on 01/17/19 21:17; Admin Dose 2.5 MG; Start 01/13/19 at 21:00 Atorvastatin Calcium (Lipitor) 80 mg QHS PO Last administered on 01/17/19 21:17; Admin Dose 80 MG; Start 01/13/19 at 21:00 Clopidogrel Bisulfate (plaVIX) 75 mg DAILY PO Last administered on 01/17/19 09:12; Admin Dose 75 MG; Start 01/14/19 at 09:00 Ferrous Sulfate (Ferrous Sulfate (Ec)) 325 mg DAILY PO Last administered on 01/17/19 09:12; Admin Dose 325 MG; Start 01/14/19 at 09:00 Fluticasone/ Vilanterol (Breo Ellipta 100-25 Mcg Inh) 1 inh DAILY INH Last administered on 01/17/19 09:13; Admin Dose 1 INH; Start 01/14/19 at 09:00 IV Flush (NS 3 ml) 3 ml PER PROTOCOL IV ; Start 01/13/19 at 18:30 Lorazepam (Ativan) 0.5 mg Q6H PRN IV .ANXIETY; Start 01/13/19 at 18:30 Ondansetron HCl (Zofran Inj) 4 mg Q6H PRN IV NAUSEA/VOMITING; Start 01/13/19 at 18:30 Nitroglycerin (Nitroglycerin (Sl Tab) 0.4 Mg) 1 tab Q5M PRN SL .CHEST PAIN; Start 01/13/19 at 18:30 Acetaminophen (Tylenol Tab) 650 mg Q6H PRN PO .PAIN 1-3 OR TEMP; Start 01/13/19 at 18:30 Docusate Sodium (Colace) 100 mg Q12H PRN PO .CONSTIPATION; Start 01/13/19 at 18:30 Magnesium Hydroxide (Milk Of Mag) 30 ml DAILY PRN PO .CONSTIPATION; Start 01/13/19 at 18:30 Morphine Sulfate (morphine) 2 mg Q4H PRN IV SEVERE PAIN LEVEL 7-10 Last administered on 01/16/19at 13:06; Admin Dose 2 MG; Start 01/16/19 at 13:00 Sucralfate (Carafate Susp) 1 gm QID PO Last administered on 01/17/19 21:17; Admin Dose 1 GM; Start 01/16/19 at 17:00 Pantoprazole (Protonix Tab) 40 mg BID@06,18 PO Last administered on 01/18/19 05:55; Admin Dose 40 MG; Start 01/16/19 at 18:00 Albuterol/ Ipratropium (Duoneb) 3 ml Q6HWA RESP THERAPY HHN Last administered on 01/17/19 21:41; Admin Dose 3 ML; Start 01/16/19 at 20:00 Albuterol/ Ipratropium (Duoneb) 3 ml Q2H RESP THERAPY PRN N shortness of breath; Start 01/16/19 at 18:00 Budesonide (Pulmicort (Neb)) 0.5 mg BID RESP THERAPY HHN Last administered on 01/17/19 21:41; Admin Dose 0.5 MG; Start 01/16/19 at 20:00 JUANITO BENITEZ Jan 18, 2019 09:48
[2019-01-18] MEDS: ALBUTEROL/IPRATROPIUM (NEB) 3 ML AMP HHN SCH ×3 (10:02→19:49)
[2019-01-18] MEDS ORDERED: DOBUTamine/D5W 1 MG/ML DRIP 250 ML ONE (10:12)
[2019-01-18] MEDS: BUDESONIDE (NEB) 0.5MG/2ML AMP HHN SCH ×2 (10:15→19:49)
[2019-01-18] MEDS ORDERED: DOBUTamine/D5W 2 MG/ML DRIP 250 ML IV SCH (11:00)
--- NOTE | 2019-01-18 11:23 | CONS ---
Assessment/Plan Assessment/Plan Assessment/Plan (Daily) 1. Acute kidney injury on CKD III due to Hemodynamics from CHF 2. acute on chronic Systolic HF with EF 20% 3. Severe pulmonary HTN 4. Ischemic CM with EF 20% s/p PCI in 11/2017 at [facility] 5. H/o CAD - attempted PCI of SEAT [employer]ER CHAINSTITCH of mid Cx and prox RCA by me 11/22/17 which was unsuccessful but had successful PCI 12/01/17 at [facility]. Now fully revascularized. 5. H/o Paroxysmal atrial fibrillation s/p AICD placement 6. H/o Chronic respiratory failur from COPD on home oxygen Plan: BUN/Cr went upto 58/2.41, Other electrolytes stable pt becomes hypoxic transferred to ICU- Bumex changed to IV by cardiology- will stop IV bumex ,will give bumex gtt 1 mg/hr x 6 hr then reassess for another Bumex gg will follow up Consultation Date/Type/Reason Admit Date/Time Jan 13, 2019 at 18:31 Initial Consult Date 01/14/19 Type of Consult NEPHROLOGY Requesting Provider: IDA PERAZA MD Date/Time of Note DATE: 01/18/19 TIME: 11:23 24 HR Interval Summary Free Text/Dictation BUN/Cr went upto 58/2.41, pt becomes hypoxic transferred to ICU- Bumex changed to IV by cardiology Exam/Review of Systems Exam Vitals Vital Signs Date Temp Pulse Resp B/P (MAP) Pulse Ox O2 O2 Flow FiO2 Time Delivery Rate 01/18/19 Nasal 2.0 08:00 Cannula 01/18/19 97.6 60 16 87/53 (64) 99 07:37 01/18/19 27 00:55 Intake and Output 01/17/19 01/17/19 01/18/19 1515:00 23:00 07:00 IntakeIntake Total 300 ml BalanceBalance 300 ml Exam Constitutional: alert, oriented, no acute distress Neck: jvd (at angle of jaw) Respiratory: BIlatearl crackles upto midlung Cardiovascular: regular rate and rhythm, SM + on exam Gastrointestinal: soft, non-tender; ND, BS+ Neurological: nl mental status, nl speech Pitting edema on LE Results Result Diagram: 01/18/19 0533 01/18/19 0533 Results 24hrs Laboratory Tests Test 01/18/19 05:33 01/18/19 10:18 White Blood Count 6.8 Red Blood Count 4.14 L Hemoglobin 10.7 L Hematocrit 35.8 L Mean Corpuscular Volume 86.5 Mean Corpuscular Hemoglobin 25.8 L Mean Corpuscular Hemoglobin Concent 29.9 L Red Cell Distribution Width 17.9 H Platelet Count 195 Mean Platelet Volume 9.9 Immature Granulocytes % 0.300 Neutrophils % 70.8 Lymphocytes % 17.0 Monocytes % 8.1 Eosinophils % 3.2 Basophils % 0.6 Nucleated Red Blood Cells % 0.0 Immature Granulocytes # 0.020 Neutrophils # 4.8 Lymphocytes # 1.2 Monocytes # 0.6 Eosinophils # 0.2 Basophils # 0.0 Nucleated Red Blood Cells # 0.0 Sodium Level 139 Potassium Level 4.1 Chloride Level 99 Carbon Dioxide Level 28 Anion Gap 12 Blood Urea Nitrogen 58 H Creatinine 2.41 H Est Glomerular Filtrat Rate mL/min Glucose Level 145 Calcium Level 9.7 Phosphorus Level 4.9 Magnesium Level 2.6 H Lactic Acid Level 2.1 *H Medications Medication Current Medications Apixaban (Eliquis) 2.5 mg BID PO Last administered on 01/18/19 09:38; Admin Dose 2.5 MG; Start 01/13/19 at 21:00 Atorvastatin Calcium (Lipitor) 80 mg QHS PO Last administered on 01/17/19 21:17; Admin Dose 80 MG; Start 01/13/19 at 21:00 Clopidogrel Bisulfate (plaVIX) 75 mg DAILY PO Last administered on 01/18/19 09:38; Admin Dose 75 MG; Start 01/14/19 at 09:00 Ferrous Sulfate (Ferrous Sulfate (Ec)) 325 mg DAILY PO Last administered on 01/18/19 09:38; Admin Dose 325 MG; Start 01/14/19 at 09:00 Fluticasone/ Vilanterol (Breo Ellipta 100-25 Mcg Inh) 1 inh DAILY INH Last administered on 01/18/19 09:39; Admin Dose 1 INH; Start 01/14/19 at 09:00 IV Flush (NS 3 ml) 3 ml PER PROTOCOL IV ; Start 01/13/19 at 18:30 Lorazepam (Ativan) 0.5 mg Q6H PRN IV .ANXIETY; Start 01/13/19 at 18:30 Ondansetron HCl (Zofran Inj) 4 mg Q6H PRN IV NAUSEA/VOMITING; Start 01/13/19 at 18:30 Nitroglycerin (Nitroglycerin (Sl Tab) 0.4 Mg) 1 tab Q5M PRN SL .CHEST PAIN; Start 01/13/19 at 18:30 Acetaminophen (Tylenol Tab) 650 mg Q6H PRN PO .PAIN 1-3 OR TEMP; Start 01/13/19 at 18:30 Docusate Sodium (Colace) 100 mg Q12H PRN PO .CONSTIPATION; Start 01/13/19 at 18:30 Magnesium Hydroxide (Milk Of Mag) 30 ml DAILY PRN PO .CONSTIPATION; Start 01/13/19 at 18:30 Morphine Sulfate (morphine) 2 mg Q4H PRN IV SEVERE PAIN LEVEL 7-10 Last administered on 01/16/19at 13:06; Admin Dose 2 MG; Start 01/16/19 at 13:00 Sucralfate (Carafate Susp) 1 gm QID PO Last administered on 01/18/19at 09:38; A dmin Dose 1 GM; Start 01/16/19 at 17:00 Pantoprazole (Protonix Tab) 40 mg BID@06,18 PO Last administered on 01/18/19 05:55; Admin Dose 40 MG; Start 01/16/19 at 18:00 Albuterol/ Ipratropium (Duoneb) 3 ml Q6HWA RESP THERAPY HHN Last administered on 01/18/19at 10:02; Admin Dose 3 ML; Start 01/16/19 at 20:00 Albuterol/ Ipratropium (Duoneb) 3 ml Q2H RESP THERAPY PRN HHN shortness of breath; Start 01/16/19 at 18:00 Budesonide (Pulmicort (Neb)) 0.5 mg BID RESP THERAPY HHN Last administered on 01/18/19at 10:15; Admin Dose 0.5 MG; Start 01/16/19 at 20:00 Dobutamine HCl/ Dextrose 250 ml @ 3.63 mls/hr TITRATE IV ; Start 01/18/19 at 11:00 Bumetanide (Bumex) 2 mg BID DIURETICS IV ; Start 01/18/19 at 09:30 DYLAN LUGO MD Jan 18, 2019 11:23
[2019-01-18] MEDS ORDERED: BUMETANIDE 6 MG in DEXTROSE 5% 36 ML IV ONE (13:00)
--- NOTE | 2019-01-18 13:32 | CONS ---
Assessment/Plan Assessment/Plan Hospital Course (Demo Recall) SUBJECTIVE: Patient was transfer to ICU and's was started on dobutamine drip. He is awake alert in no distress no fevers overnight. WBC 6.8 no shift no bands lactic acid 2.1 BUN 58 creatinine 2.41 MICROBIOLOGY: Blood cultures negative. HIDA scan neg PHYSICAL EXAMINATION: GENERAL: This is a fragile, well-developed, ill-appearing, elderly man who is awake, in no distress. HEAD: Atraumatic, normocephalic. NECK: Supple. CHEST: Rise symmetrical. Breath sounds diminished at bases. HEART: S1, S2. ABDOMEN: Soft, bowel tones present. Patient has epigastric pain. ASSESSMENT: 1. Cardiogenic shock 2. Cardiomyopathy with ejection fraction of 10% 3. Chronic kidney disease. 4. Severe pulmonary hypertension. 5. Paroxysmal atrial fibrillation. 6. Emphysema. PLAN: The patient is clinically stable, continue present care, f/u cardiology rec-s Consultation Date/Type/Reason Admit Date/Time Jan 13, 2019 at 18:31 Initial Consult Date 01/13/19 Type of Consult id Requesting Provider: IDA PERAZA MD Date/Time of Note DATE: 01/18/19 TIME: 13:30 Exam/Review of Systems Exam Vitals Vital Signs Date Temp Pulse Resp B/P (MAP) Pulse Ox O2 O2 Flow FiO2 Time Delivery Rate 01/18/19 66 12:00 01/18/19 Nasal 2.0 08:00 Cannula 01/18/19 97.6 16 87/53 (64) 99 07:37 01/18/19 27 00:55 Intake and Output 01/17/19 01/17/19 01/18/19 1515:00 23:00 07:00 IntakeIntake Total 300 ml BalanceBalance 300 ml Results Result Diagram: 01/18/19 0533 01/18/19 0533 Results 24hrs Laboratory Tests Test 01/18/19 05:33 01/18/19 10:18 White Blood Count 6.8 Red Blood Count 4.14 L Hemoglobin 10.7 L Hematocrit 35.8 L Mean Corpuscular Volume 86.5 Mean Corpuscular Hemoglobin 25.8 L Mean Corpuscular Hemoglobin Concent 29.9 L Red Cell Distribution Width 17.9 H Platelet Count 195 Mean Platelet Volume 9.9 Immature Granulocytes % 0.300 Neutrophils % 70.8 Lymphocytes % 17.0 Monocytes % 8.1 Eosinophils % 3.2 Basophils % 0.6 Nucleated Red Blood Cells % 0.0 Immature Granulocytes # 0.020 Neutrophils # 4.8 Lymphocytes # 1.2 Monocytes # 0.6 Eosinophils # 0.2 Basophils # 0.0 Nucleated Red Blood Cells # 0.0 Sodium Level 139 Potassium Level 4.1 Chloride Level 99 Carbon Dioxide Level 28 Anion Gap 12 Blood Urea Nitrogen 58 H Creatinine 2.41 H Est Glomerular Filtrat Rate mL/min Glucose Level 145 Calcium Level 9.7 Phosphorus Level 4.9 Magnesium Level 2.6 H Lactic Acid Level 2.1 *H Medications Medication Current Medications Apixaban (Eliquis) 2.5 mg BID PO Last administered on 01/18/19 09:38; Admin Dose 2.5 MG; Start 01/13/19 at 21:00 Atorvastatin Calcium (Lipitor) 80 mg QHS PO Last administered on 01/17/19 21:17; Admin Dose 80 MG; Start 01/13/19 at 21:00 Clopidogrel Bisulfate (plaVIX) 75 mg DAILY PO Last administered on 01/18/19 09:38; Admin Dose 75 MG; Start 01/14/19 at 09:00 Ferrous Sulfate (Ferrous Sulfate (Ec)) 325 mg DAILY PO Last administered on 01/18/19 09:38; Admin Dose 325 MG; Start 01/14/19 at 09:00 Fluticasone/ Vilanterol (Breo Ellipta 100-25 Mcg Inh) 1 inh DAILY INH Last administered on 01/18/19 09:39; Admin Dose 1 INH; Start 01/14/19 at 09:00 IV Flush (NS 3 ml) 3 ml PER PROTOCOL IV ; Start 01/13/19 at 18:30 Lorazepam (Ativan) 0.5 mg Q6H PRN IV .ANXIETY; Start 01/13/19 at 18:30 Ondansetron HCl (Zofran Inj) 4 mg Q6H PRN IV NAUSEA/VOMITING; Start 01/13/19 at 18:30 Nitroglycerin (Nitroglycerin (Sl Tab) 0.4 Mg) 1 tab Q5M PRN SL .CHEST PAIN; Start 01/13/19 at 18:30 Acetaminophen (Tylenol Tab) 650 mg Q6H PRN PO .PAIN 1-3 OR TEMP; Start 01/13/19 at 18:30 Docusate Sodium (Colace) 100 mg Q12H PRN PO .CONSTIPATION; Start 01/13/19 at 18:30 Magnesium Hydroxide (Milk Of Mag) 30 ml DAILY PRN PO .CONSTIPATION; Start 01/13/19 at 18:30 Morphine Sulfate (morphine) 2 mg Q4H PRN IV SEVERE PAIN LEVEL 7-10 Last administered on 01/16/19at 13:06; Admin Dose 2 MG; Start 01/16/19 at 13:00 Sucralfate (Carafate Susp) 1 gm QID PO Last administered on 01/18/19at 09:38; Admin Dose 1 GM; Start 01/16/19 at 17:00 Pantoprazole (Protonix Tab) 40 mg BID@06,18 PO Last administered on 01/18/19at 05:55; Admin Dose 40 MG; Start 01/16/19 at 18:00 Albuterol/ Ipratropium (Duoneb) 3 ml Q6HWA RESP THERAPY HHN Last administered on 01/18/19at 10:02; Admin Dose 3 ML; Start 01/16/19 at 20:00 Albuterol/ Ipratropium (Duoneb) 3 ml Q2H RESP THERAPY PRN HHN shortness of breath; Start 01/16/19 at 18:00 Budesonide (Pulmicort (Neb)) 0.5 mg BID RESP THERAPY HHN Last administered on 01/18/19at 10:15; Admin Dose 0.5 MG; Start 01/16/19 at 20:00 Bumetanide 6 mg/ Dextrose 60 ml @ 10 mls/hr Q6H ONCE IV ; Start 01/18/19 at 13:00; Stop 01/18/19 at 18:59 Dobutamine HCl/ Dextrose 250 ml @ 7.26 mls/hr TITRATE IV ; Start 01/18/19 at 13:30; Status RAYMON LEWIS NP Jan 18, 2019 13:32
[2019-01-18] MEDS: DOBUTamine/D5W 2 MG/ML DRIP 250 ML IV SCH (13:38)
--- NOTE | 2019-01-18 13:57 | PN ---
Date/Time of Note Date/Time of Note DATE: 01/18/19 TIME: 13:52 Objective Vitals Vital Signs Date Temp Pulse Resp B/P (MAP) Pulse Ox O2 O2 Flow FiO2 Time Delivery Rate 01/18/19 66 12:00 01/18/19 Nasal 2.0 08:00 Cannula 01/18/19 97.6 16 87/53 (64) 99 07:37 01/18/19 27 00:55 Intake and Output 01/17/19 01/17/19 01/18/19 1515:00 23:00 07:00 IntakeIntake Total 300 ml BalanceBalance 300 ml Results Result Diagram: 01/18/19 0533 01/18/19 0533 Medications Medications Current Medications Apixaban (Eliquis) 2.5 mg BID PO Last administered on 01/18/19 09:38; Admin Dose 2.5 MG; Start 01/13/19 at 21:00 Atorvastatin Calcium (Lipitor) 80 mg QHS PO Last administered on 01/17/19at 21:17; Admin Dose 80 MG; Start 01/13/19 at 21:00 Clopidogrel Bisulfate (plaVIX) 75 mg DAILY PO Last administered on 01/18/19 09:38; Admin Dose 75 MG; Start 01/14/19 at 09:00 Ferrous Sulfate (Ferrous Sulfate (Ec)) 325 mg DAILY PO Last administered on 01/18/19 09:38; Admin Dose 325 MG; Start 01/14/19 at 09:00 Fluticasone/ Vilanterol (Breo Ellipta 100-25 Mcg Inh) 1 inh DAILY INH Last administered on 01/18/19 09:39; Admin Dose 1 INH; Start 01/14/19 at 09:00 IV Flush (NS 3 ml) 3 ml PER PROTOCOL IV ; Start 01/13/19 at 18:30 Lorazepam (Ativan) 0.5 mg Q6H PRN IV .ANXIETY; Start 01/13/19 at 18:30 Ondansetron HCl (Zofran Inj) 4 mg Q6H PRN IV NAUSEA/VOMITING; Start 01/13/19 at 18:30 Nitroglycerin (Nitroglycerin (Sl Tab) 0.4 Mg) 1 tab Q5M PRN SL .CHEST PAIN; Start 01/13/19 at 18:30 Acetaminophen (Tylenol Tab) 650 mg Q6H PRN PO .PAIN 1-3 OR TEMP; Start 01/13/19 at 18:30 Docusate Sodium (Colace) 100 mg Q12H PRN PO .CONSTIPATION; Start 01/13/19 at 18:30 Magnesium Hydroxide (Milk Of Mag) 30 ml DAILY PRN PO .CONSTIPATION; Start 01/13/19 at 18:30 Morphine Sulfate (morphine) 2 mg Q4H PRN IV SEVERE PAIN LEVEL 7-10 Last administered on 01/16/19 13:06; Admin Dose 2 MG; Start 01/16/19 at 13:00 Sucralfate (Carafate Susp) 1 gm QID PO Last administered on 01/18/19 13:49; Admin Dose 1 GM; Start 01/16/19 at 17:00 Pantoprazole (Protonix Tab) 40 mg BID@06,18 PO Last administered on 01/18/19 05:55; Admin Dose 40 MG; Start 01/16/19 at 18:00 Albuterol/ Ipratropium (Duoneb) 3 ml Q6HWA RESP THERAPY HHN Last administered on 01/18/19 10:02; Admin Dose 3 ML; Start 01/16/19 at 20:00 Albuterol/ Ipratropium (Duoneb) 3 ml Q2H RESP THERAPY PRN HHN shortness of breath; Start 01/16/19 at 18:00 Budesonide (Pulmicort (Neb)) 0.5 mg BID RESP THERAPY HHN Last administered on 01/18/19 10:15; Admin Dose 0.5 MG; Start 01/16/19 at 20:00 Bumetanide 6 mg/ Dextrose 60 ml @ 10 mls/hr Q6H ONCE IV Last administered on 01/18/19 13:39; Admin Dose 10 MLS/HR; Start 01/18/19 at 13:00; Stop 01/18/19 at 18:59 Dobutamine HCl/ Dextrose 250 ml @ 7.26 mls/hr TITRATE IV Last administered on 01/18/19 13:38; Admin Dose 7.26 MLS/HR; Start 01/18/19 at 13:30 VTE Prophylaxis Risk score (from Ns)>0 risk: 4 SCD applied (from Nsg): Yes Lines/Catheters IV Catheter Type: Trent in Place: No Assessment/Plan Hospital Course Subjective Patient states he feels comfortable however blood pressure is low earlier in the morning, upgraded to ICU for dobutamine drip per cardiology Objective Physical exam General: Patient is laying in bed and answers questions appropriately Mentation: Patient is alert and oriented 4, Head: Normocephalic atraumatic Eyes: EOMI, pupils reactive to light Neck: Supple, nontender, midline Respiratory: Coarse to auscultation bilaterally Cardiovascular: regular rate, no obvious murmurs Gastrointestinal: Epigastric mildly tender to palpation, bowel sounds heard. Neurological: Moves all extremities spontaneously Skin: No new skin lesions Assessment/Plan Epigastric pain, -Resolved, likely some gastritis -HIDA scan negative for cholecystitis -Continue Carafate and Protonix Hypotension, questionable cardiorenal syndrome -in ICU for dobutamine drip -Insert PICC line -Cardiology and nephrology recommendations appreciated Questionable mass -Spoke with patient's ear nose and throat specialist who knows patient very well, will follow-up outpatient and get a repeat CT scan to further elucidate. Acute on chronic systolic heart failure - BNP noted - Cardiology consulted for diuretic recommendations. - Monitor I/O and daily weights - ECHO from 08/2018 noted with EF 20% and significant pulmonary HTN SILVESTRE on CKD - Nephrology, Dr. Garvin, consulted for recommendations given patient needs to be on diuretics -Ultrasound noted -avoid nephrotoxic agents Pulmonary HTN - noted on recent ECHO and most likely contributing to SOB - Supplemental O2 - Will start Sildenafil if okay with pulmonology and cardiology, however given patient's known pulmonary hypertension and multiple cardiac issues as well as pulmonary issues, will likely defer to outpatient initiation of treatment if any. - pulmonary consultation placed Anemia of chronic disease - stable COPD -Nebulizers - no exacerbation noted Atrial fibrillation - continue home medications - rate controlled - on Eliquis Ischemic cardiomyopathy -Medications per ear nose and throat specialist Coronary artery disease -Medications per ear nose and throat specialist PAD -on Plavix AICD Diet -Cardiac History of home O2 use -Off oxygen for now Disposition -in ICU, cont dobutamine drip -Insert PICC line for possible other pressors as needed -More than 40 minutes of critical care time was spent on this encounter CASSY SAUNDERS Jan 18, 2019 13:57
[2019-01-18] MEDS ORDERED: LIDOCAINE 1% (MPF) 5 ML VIAL SC ONE (14:00)
[2019-01-18] MEDS: ATORVASTATIN 80 MG TAB PO SCH (21:08)
[2019-01-19] VITALS (95 sets, daily range): BP systolic 71–103; BP diastolic 39–78; PULSE 56–84; RESP 16–34
[2019-01-19] MEDS: PANTOPRAZOLE (EC) 40 MG TAB PO SCH ×2 (05:21→17:50)
[2019-01-19] MEDS ORDERED: POTASSIUM CHLORIDE 100 ML IVPB ONE (08:00)
[2019-01-19] MEDS: FERROUS SULFATE (EC) 325 MG TAB PO SCH (08:39)
[2019-01-19] MEDS: CLOPIDOGREL 75 MG TAB PO SCH (08:39)
[2019-01-19] MEDS: SUCRALFATE (100 MG/ML) 10ML CUP PO SCH ×4 (08:39→21:36)
[2019-01-19] MEDS: APIXABAN 5 MG TABLET PO SCH ×2 (08:40→21:36)
[2019-01-19] MEDS ORDERED: POTASSIUM CHLORIDE 20 MEQ POWDER FOR ORAL SOLN PO ONE (09:00)
--- NOTE | 2019-01-19 09:04 | CONS ---
Assessment/Plan Assessment/Plan Assessment/Plan (Daily) Patient is currently on dobutamine drip at 5 mics per kilogram per minute. Assessment and recommendations; 1. Patient admitted for CHF exacerbation with development of hypotension requiring transfer to ICU. Patient doing very well on dobutamine drip. 2. Mild chronic renal insufficiency. 3. Mild anemia. Continue current supportive care. Other recommendations per forensic science technician. Consultation Date/Type/Reason Admit Date/Time Jan 13, 2019 at 18:31 Initial Consult Date 01/13/19 Requesting Provider: IDA PERAZA MD Date/Time of Note DATE: 01/19/19 TIME: 09:02 24 HR Interval Summary Free Text/Dictation Patient's condition is significantly improved. Patient had to be transferred to ICU because of hypotension. Started on dobutamine drip. Patient denies any chest pain, shortness of breath, coughing or wheezing. Any sputum production or hemoptysis. General exam; elderly male, laying comfortably in bed. On room air. Currently in no distress. Exam/Review of Systems Exam Vitals Vital Signs Date Temp Pulse Resp B/P (MAP) Pulse Ox O2 O2 Flow FiO2 Time Delivery Rate 01/19/19 64 08:00 01/19/19 20 92/61 (71) 97 Room Air 07:00 01/19/19 21 06:22 01/19/19 2.0 05:45 01/19/19 97.7 04:06 Intake and Output 01/18/19 01/18/19 01/19/19 1515:00 23:00 07:00 IntakeIntake Total 599.86 ml 138.08 ml 58.08 ml OutputOutput Total 300 ml 1200 ml 485 ml BalanceBalance 299.86 ml -1061.92 ml -426.92 ml Exam H ENT exam; supple neck, positive JVD. No lymphadenopathy. Midline trachea. No thyromegaly. Patient has dentures in place. Pupils are small bilaterally. Chest exam; diminished but clear breath sounds. S1-S2 audible, no murmurs. Regular rhythm. Abdomen exam; soft, no organomegaly. Bowel sounds audible. Extremity exam; no peripheral edema clubbing. [employer] exam; no focal deficit. Results Result Diagram: 01/19/19 0500 01/19/19 0500 Results 24hrs Laboratory Tests Test 01/18/19 10:18 01/19/19 05:00 Lactic Acid Level 2.1 *H White Blood Count 5.7 Red Blood Count 3.99 L Hemoglobin 10.4 L Hematocrit 33.0 L Mean Corpuscular Volume 82.7 Mean Corpuscular Hemoglobin 26.1 L Mean Corpuscular Hemoglobin Concent 31.5 L Red Cell Distribution Width 17.6 H Platelet Count 200 Mean Platelet Volume 10.7 H Immature Granulocytes % 0.400 Neutrophils % 68.5 Lymphocytes % 19.5 Monocytes % 7.7 Eosinophils % 3.2 Basophils % 0.7 Nucleated Red Blood Cells % 0.0 Immature Granulocytes # 0.020 Neutrophils # 3.9 Lymphocytes # 1.1 Monocytes # 0.4 Eosinophils # 0.2 Basophils # 0.0 Nucleated Red Blood Cells # 0.0 Sodium Level 136 Potassium Level 3.1 L Chloride Level 94 L Carbon Dioxide Level 29 Anion Gap 13 Blood Urea Nitrogen 59 H Creatinine 1.82 H Est Glomerular Filtrat Rate mL/min Glucose Level 111 Calcium Level 9.5 Phosphorus Level 3.5 Magnesium Level 2.4 Medications Medication Current Medications Apixaban (Eliquis) 2.5 mg BID PO Last administered on 01/19/19 08:40; Admin Dose 2.5 MG; Start 01/13/19 at 21:00 Atorvastatin Calcium (Lipitor) 80 mg QHS PO Last administered on 01/18/19 21:08; Admin Dose 80 MG; Start 01/13/19 at 21:00 Clopidogrel Bisulfate (plaVIX) 75 mg DAILY PO Last administered on 01/19/19 08:39; Admin Dose 75 MG; Start 01/14/19 at 09:00 Ferrous Sulfate (Ferrous Sulfate (Ec)) 325 mg DAILY PO Last administered on 01/19/19 08:39; Admin Dose 325 MG; Start 01/14/19 at 09:00 Fluticasone/ Vilanterol (Breo Ellipta 100-25 Mcg Inh) 1 inh DAILY INH Last administered on 01/18/19 09:39; Admin Dose 1 INH; Start 01/14/19 at 09:00 IV Flush (NS 3 ml) 3 ml PER PROTOCOL IV ; Start 01/13/19 at 18:30 Lorazepam (Ativan) 0.5 mg Q6H PRN IV .ANXIETY; Start 01/13/19 at 18:30 Ondansetron HCl (Zofran Inj) 4 mg Q6H PRN IV NAUSEA/VOMITING; Start 01/13/19 at 18:30 Nitroglycerin (Nitroglycerin (Sl Tab) 0.4 Mg) 1 tab Q5M PRN SL .CHEST PAIN; Start 01/13/19 at 18:30 Acetaminophen (Tylenol Tab) 650 mg Q6H PRN PO .PAIN 1-3 OR TEMP; Start 01/13/19 at 18:30 Docusate Sodium (Colace) 100 mg Q12H PRN PO .CONSTIPATION; Start 01/13/19 at 18 :30 Magnesium Hydroxide (Milk Of Mag) 30 ml DAILY PRN PO .CONSTIPATION; Start 01/13/19 at 18:30 Morphine Sulfate (morphine) 2 mg Q4H PRN IV SEVERE PAIN LEVEL 7-10 Last administered on 01/16/19 13:06; Admin Dose 2 MG; Start 01/16/19 at 13:00 Sucralfate (Carafate Susp) 1 gm QID PO Last administered on 01/19/19 08:39; Admin Dose 1 GM; Start 01/16/19 at 17:00 Pantoprazole (Protonix Tab) 40 mg BID@06,18 PO Last administered on 01/19/19 05:21; Admin Dose 40 MG; Start 01/16/19 at 18:00 Albuterol/ Ipratropium (Duoneb) 3 ml Q6HWA RESP THERAPY HHN Last administered on 01/18/19 19:49; Admin Dose 3 ML; Start 01/16/19 at 20:00 Albuterol/ Ipratropium (Duoneb) 3 ml Q2H RESP THERAPY PRN HHN shortness of breath; Start 01/16/19 at 18:00 Budesonide (Pulmicort (Neb)) 0.5 mg BID RESP THERAPY HHN Last administered on 01/18/19 19:49; Admin Dose 0.5 MG; Start 01/16/19 at 20:00 Dobutamine HCl/ Dextrose 250 ml @ 7.26 mls/hr TITRATE IV Last administered on 01/18/19 13:38; Admin Dose 7.26 MLS/HR; Start 01/18/19 at 13:30 Potassium Chloride 100 ml @ 50 mls/hr ONCE ONCE IVPB Last administered on 8/3/19at 08:39; Admin Dose 50 MLS/HR; Start 01/19/19 at 08:00; Stop 01/19/19 at 09:59 Potassium Chloride (Potassium Chloride Pwd/Soln) 40 meq ONCE ONCE PO ; Start 01/19/19 at 09:00; Stop 01/19/19 at 09:01 JIM CHO Jan 19, 2019 09:04
--- NOTE | 2019-01-19 09:09 | CONS ---
Assessment/Plan Assessment/Plan Hospital Course (Demo Recall) Cardiogenic shock: Was showing signs of hypoperfusion with cool extremities and worsening renal function. Echo showed RA pressure of 15 mmHg. Started on dobutamine with improved perfusion and diuresis. Renal function also improved Acute on chronic renal failure: Cr has fluctuated and as high as 2 before. Outpt baseline is ~1.2-1.6 when stable.Up to 2.4 this admission due to renal hypoperfusion. Now improved to 1.8 Acute on chronic systolic heart failure: Likely dietary indiscretion. Has been fluctuating but significantly better now NSVT: run of NSVT 01/15/19 which appears to have been successfully terminated with ATP. No recurrence Lactic acidosis: due to hypoperfusion secondary to ADHF. Severe pulmonary HTN: PAP as high as 85 mmHg recently but closer to 70mmHg when compensated. Likely combination of heart failure and intrinsic lung disease H/o anterior STEMI: occurred 09/16/17. s/p PCI of prox-mid LAD. Ischemic cardiomyopathy: EF 20% PAD: right iliac 95% seen on cath 09/03. Considering outpt revascularization but pt refused. CAD: attempted PCI of VALET ATTENDANT of mid Cx and prox RCA by me 11/22/17 which was unsuccessful but had successful PCI 12/01/17 at [facility]. Now fully revascularized. s/p [employer] ICD 01/2018 Paroxysmal atrial fibrillation: occurred during STEMI. On Eliquis Chronic respiratory failure: now off home oxygen COPD: CT 01/16/19 showed emphysema. 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 Renal function improved and JVP almost lewis lized -continue dobutamine drip one more day. If stable tomorrow, will wean off. -start bumex 1mg PO BID as clinically much improved and now goal is not as much diuresis but to maintain cardiac output and volume status. When dobutamine weaned off, he will likely need TID dosing -continue Eliquis 2.5mg BID -plavix 75mg -lipitor 80mg Consultation Date/Type/Reason Admit Date/Time Jan 13, 2019 at 18:31 Initial Consult Date 01/14/19 Type of Consult Cardiology Requesting Provider: IDA PERAZA MD Date/Time of Note DATE: 01/19/19 TIME: 09:01 24 HR Interval Summary Free Text/Dictation Did well overnight on dobutamine. Intermittent PVCs but no NSVT. Net negative 1.2L. Cr 2.4-->1.8. No complaints. Son at bedside. Exam/Review of Systems Vital Signs Vitals Vital Signs Date Temp Pulse Resp B/P (MAP) Pulse Ox O2 O2 Flow FiO2 Time Delivery Rate 01/19/19 64 08:00 01/19/19 20 92/61 (71) 97 Room Air 07:00 01/19/19 21 06:22 01/19/19 2.0 05:45 01/19/19 97.7 04:06 Intake and Output 01/18/19 01/18/19 01/19/19 1515:00 23:00 07:00 IntakeIntake Total 599.86 ml 138.08 ml 58.08 ml OutputOutput Total 300 ml 1200 ml 485 ml BalanceBalance 299.86 ml -1061.92 ml -426.92 ml Exam Constitutional: alert, oriented Psych: no complaints, nl mood/affect Head: normocephalic, atraumatic Neck: jvd (7-8cm) Respiratory: crackles/rales (bases R>L); No clear to auscultation Cardiovascular: regular rate and rhythm, systolic murmur (2/6 HSM); No edema Gastrointestinal: non-tender; No soft, No distended Neurological: nl mental status, nl speech Labs Result Diagram: 01/19/19 0500 01/19/19 0500 Results 24hrs Laboratory Tests Test 01/18/19 10:18 01/19/19 05:00 Lactic Acid Level 2.1 *H White Blood Count 5.7 Red Blood Count 3.99 L Hemoglobin 10.4 L Hematocrit 33.0 L Mean Corpuscular Volume 82.7 Mean Corpuscular Hemoglobin 26.1 L Mean Corpuscular Hemoglobin Concent 31.5 L Red Cell Distribution Width 17.6 H Platelet Count 200 Mean Platelet Volume 10.7 H Immature Granulocytes % 0.400 Neutrophils % 68.5 Lymphocytes % 19.5 Monocytes % 7.7 Eosinophils % 3.2 Basophils % 0.7 Nucleated Red Blood Cells % 0.0 Immature Granulocytes # 0.020 Neutrophils # 3.9 Lymphocytes # 1.1 Monocytes # 0.4 Eosinophils # 0.2 Basophils # 0.0 Nucleated Red Blood Cells # 0.0 Sodium Level 136 Potassium Level 3.1 L Chloride Level 94 L Carbon Dioxide Level 29 Anion Gap 13 Blood Urea Nitrogen 59 H Creatinine 1.82 H Est Glomerular Filtrat Rate mL/min Glucose Level 111 Calcium Level 9.5 Phosphorus Level 3.5 Magnesium Level 2.4 Medications Medications Current Medications Apixaban (Eliquis) 2.5 mg BID PO Last administered on 01/19/19 08:40; Admin Dose 2.5 MG; Start 01/13/19 at 21:00 Atorvastatin Calcium (Lipitor) 80 mg QHS PO Last administered on 01/18/19 21:08; Admin Dose 80 MG; Start 01/13/19 at 21:00 Clopidogrel Bisulfate (plaVIX) 75 mg DAILY PO Last administered on 01/19/19 08:39; Admin Dose 75 MG; Start 01/14/19 at 09:00 Ferrous Sulfate (Ferrous Sulfate (Ec)) 325 mg DAILY PO Last administered on 01/19/19 08:39; Admin Dose 325 MG; Start 01/14/19 at 09:00 Fluticasone/ Vilanterol (Breo Ellipta 100-25 Mcg Inh) 1 inh DAILY INH Last administered on 01/18/19 09:39; Admin Dose 1 INH; Start 01/14/19 at 09:00 IV Flush (NS 3 ml) 3 ml PER PROTOCOL IV ; Start 01/13/19 at 18:30 Lorazepam (Ativan) 0.5 mg Q6H PRN IV .ANXIETY; Start 01/13/19 at 18:30 Ondansetron HCl (Zofran Inj) 4 mg Q6H PRN IV NAUSEA/VOMITING; Start 01/13/19 at 18:30 Nitroglycerin (Nitroglycerin (Sl Tab) 0.4 Mg) 1 tab Q5M PRN SL .CHEST PAIN; Start 01/13/19 at 18:30 Acetaminophen (Tylenol Tab) 650 mg Q6H PRN PO .PAIN 1-3 OR TEMP; Start 01/13/19 at 18:30 Docusate Sodium (Colace) 100 mg Q12H PRN PO .CONSTIPATION; Start 01/13/19 at 18:30 Magnesium Hydroxide (Milk Of Mag) 30 ml DAILY PRN PO .CONSTIPATION; Start 01/13/19 at 18:30 Morphine Sulfate (morphine) 2 mg Q4H PRN IV SEVERE PAIN LEVEL 7-10 Last administered on 01/16/19 13:06; Admin Dose 2 MG; Start 01/16/19 at 13:00 Sucralfate (Carafate Susp) 1 gm QID PO Last administered on 01/19/19 08:39; Admin Dose 1 GM; Start 01/16/19 at 17:00 Pantoprazole (Protonix Tab) 40 mg BID@06,18 PO Last administered on 01/19/19 05:21; Admin Dose 40 MG; Start 01/16/19 at 18:00 Albuterol/ Ipratropium (Duoneb) 3 ml Q6HWA RESP THERAPY HHN Last administered on 01/18/19 19:49; Admin Dose 3 ML; Start 01/16/19 at 20:00 Albuterol/ Ipratropium (Duoneb) 3 ml Q2H RESP THERAPY PRN HHN shortness of breath; Start 01/16/19 at 18:00 Budesonide (Pulmicort (Neb)) 0.5 mg BID RESP THERAPY HHN Last administered on 01/18/19 19:49; Admin Dose 0.5 MG; Start 01/16/19 at 20:00 Dobutamine HCl/ Dextrose 250 ml @ 7.26 mls/hr TITRATE IV Last administered on 01/18/19 13:38; Admin Dose 7.26 MLS/HR; Start 01/18/19 at 13:30 Potassium Chloride 100 ml @ 50 mls/hr ONCE ONCE IVPB Last administered on 01/19/19 08:39; Admin Dose 50 MLS/HR; Start 01/19/19 at 08:00; Stop 01/19/19 at 09:59 Potassium Chloride (Potassium Chloride Pwd/Soln) 40 meq ONCE ONCE PO ; Start 01/19/19 at 09:00; Stop 01/19/19 at 09:01 JUANITO BENITEZ Jan 19, 2019 09:09
[2019-01-19] MEDS: ALBUTEROL/IPRATROPIUM (NEB) 3 ML AMP HHN SCH ×3 (09:39→19:22)
[2019-01-19] MEDS: BUDESONIDE (NEB) 0.5MG/2ML AMP HHN SCH ×2 (09:40→19:22)
[2019-01-19] MEDS: BUMETANIDE 1 MG TAB PO SCH ×2 (10:05→17:50)
[2019-01-19] MEDS: FLUTICASONE/VILANTEROL 100-25 INH SCH (10:06)
--- NOTE | 2019-01-19 12:06 | CONS ---
Assessment/Plan Assessment/Plan Hospital Course (Demo Recall) ID PROGRESS NOTE TOTAL ABX DAY # CURRENT ABX=>*OFF ABX s/p Cefepime 24H INTERVAL SUMMARY * OFF ABX --> TNS to ICU for cardiogenic shock -- Hx of CMY w/EF ~10+% * Patient is currently on dobutamine drip at 5 mics per kilogram per minute * Bedside echo 01/18/19: EF 10%; mod-severe MR; mod-severe TR; pulm HTN PAP 75mmHg; IVC up to 2.5cm and no collapse, RA pressure 15mmHg * s/p Short course ABX for concern PULMONARY sepsis -- BCx (-) * CT 01/16/19 showed emphysema. R>L pleural effusion with consolidation * Hx of Endocarditis w/removal of infected Pacemaker back in OCTOBER 2017 == RESOLVED * New PICC Line 01/18/19 * MICRO * 01/14/19 BCX (-) * 01/19/19 CXR: 1. Interval decreased pulmonary edema.2. Unchanged moderate moderate right and small left-sided pleural effusions with right lower lobe atelectasis. 3. Stable mild cardiomegaly with coronary artery stent, aortic atherosclerosis, left-sided dual chamber cardiac pacemaker. EXAM GENERAL: A/A/O, Afebrile, VSS, NAD HEENT: AT, NC, dentures NECK: Supple, trachea midline, NO lymphadenopathy CHEST: Equal chest rise bilaterally, without dyspnea on observation Lungs are CTA anterior, Pacer pocket DSG C/D/I HEART: Pulse RRR ABDOMEN: Soft / NT EXTREMITIES: Warm, no wounds ID ASSESSMENT 73 yo M admit with: 1. Cardiogenic shock -- BCx (-) * - ECHO from 08/2018 noted with EF 20% and significant pulmonary HTN * Hypotension, questionable cardiorenal syndrome -in ICU for dobutamine drip 2. Acute on chronic systolic heart failure * CHF exacerbation 3. Hx of Coronary artery disease * s/p SEP 2017 admission w/ NSTEMI == in setting sepsis, hypoxic respiratory distress == likely type II * Hx of anterior STEMI: occluded LAD s/p PCI. Status post cardiogenic shock on 09/16/17 4. 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 R>L pleural effusion with consolidation * Hx of Home O2 requirement 5. EPIGASTRIC PAIN -Resolved, likely some gastritis * -HIDA scan negative for cholecystitis * -Continue Carafate and Protonix 6. Anemia -- mild 7. Acute kidney injury 8. Paroxysmal Afib -- rate controlled 8. HTN 9. Dyslipidemia 10. Severe PAD: right iliac 95% lesion with claudication 11. Tobacco user => long-term, QUIT 09/16/17 12. ABX associated loose stools 13. 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 Has completed short course of Cefepime for concern superimposed PNA, pulm sepsis 2. Continue to monitor OFF ABX -- repeat BCx, Urine, Sputum for C&S if TEMP > 101. or other clinical indicators for concern sepsis . Consultation Date/Type/Reason Admit Date/Time Jan 13, 2019 at 18:31 Initial Consult Date 01/13/19 Requesting Provider: IDA PERAZA MD Date/Time of Note DATE: 01/19/19 TIME: 11:45 Exam/Review of Systems Exam Vitals Vital Signs Date Temp Pulse Resp B/P (MAP) Pulse Ox O2 O2 Flow FiO2 Time Delivery Rate 01/19/19 64 18 99 21 09:42 01/19/19 92/61 (71) Room Air 07:00 01/19/19 2.0 05:45 01/19/19 97.7 04:06 Intake and Output 01/18/19 01/18/19 01/19/19 1515:00 23:00 07:00 IntakeIntake Total 599.86 ml 138.08 ml 58.08 ml OutputOutput Total 300 ml 1200 ml 485 ml BalanceBalance 299.86 ml -1061.92 ml -426.92 ml Results Result Diagram: 01/19/19 0500 01/19/19 0500 Results 24hrs Laboratory Tests Test 01/19/19 05:00 01/19/19 09:20 White Blood Count 5.7 Red Blood Count 3.99 L Hemoglobin 10.4 L Hematocrit 33.0 L Mean Corpuscular Volume 82.7 Mean Corpuscular Hemoglobin 26.1 L Mean Corpuscular Hemoglobin Concent 31.5 L Red Cell Distribution Width 17.6 H Platelet Count 200 Mean Platelet Volume 10.7 H Immature Granulocytes % 0.400 Neutrophils % 68.5 Lymphocytes % 19.5 Monocytes % 7.7 Eosinophils % 3.2 Basophils % 0.7 Nucleated Red Blood Cells % 0.0 Immature Granulocytes # 0.020 Neutrophils # 3.9 Lymphocytes # 1.1 Monocytes # 0.4 Eosinophils # 0.2 Basophils # 0.0 Nucleated Red Blood Cells # 0.0 Sodium Level 136 Potassium Level 3.1 L Chloride Level 94 L Carbon Dioxide Level 29 Anion Gap 13 Blood Urea Nitrogen 59 H Creatinine 1.82 H Est Glomerular Filtrat Rate mL/min Glucose Level 111 Calcium Level 9.5 Phosphorus Level 3.5 Magnesium Level 2.4 Lactic Acid Level 2.8 *H Medications Medication Current Medications Apixaban (Eliquis) 2.5 mg BID PO Last administered on 01/19/19 08:40; Admin Dose 2.5 MG; Start 01/13/19 at 21:00 Atorvastatin Calcium (Lipitor) 80 mg QHS PO Last administered on 01/18/19 21:08; Admin Dose 80 MG; Start 01/13/19 at 21:00 Clopidogrel Bisulfate (plaVIX) 75 mg DAILY PO Last administered on 01/19/19 08:39; Admin Dose 75 MG; Start 01/14/19 at 09:00 Ferrous Sulfate (Ferrous Sulfate (Ec)) 325 mg DAILY PO Last administered on 01/19/19 08:39; Admin Dose 325 MG; Start 01/14/19 at 09:00 Fluticasone/ Vilanterol (Breo Ellipta 100-25 Mcg Inh) 1 inh DAILY INH Last administered on 01/19/19 10:06; Admin Dose 1 INH; Start 01/14/19 at 09:00 IV Flush (NS 3 ml) 3 ml PER PROTOCOL IV ; Start 01/13/19 at 18:30 Lorazepam (Ativan) 0.5 mg Q6H PRN IV .ANXIETY; Start 01/13/19 at 18:30 Ondansetron HCl (Zofran Inj) 4 mg Q6H PRN IV NAUSEA/VOMITING; Start 01/13/19 at 18:30 Nitroglycerin (Nitroglycerin (Sl Tab) 0.4 Mg) 1 tab Q5M PRN SL .CHEST PAIN; S tart 01/13/19 at 18:30 Acetaminophen (Tylenol Tab) 650 mg Q6H PRN PO .PAIN 1-3 OR TEMP; Start 01/13/19 at 18:30 Docusate Sodium (Colace) 100 mg Q12H PRN PO .CONSTIPATION; Start 01/13/19 at 18:30 Magnesium Hydroxide (Milk Of Mag) 30 ml DAILY PRN PO .CONSTIPATION; Start 01/13/19 at 18:30 Morphine Sulfate (morphine) 2 mg Q4H PRN IV SEVERE PAIN LEVEL 7-10 Last administered on 01/16/19 13:06; Admin Dose 2 MG; Start 01/16/19 at 13:00 Sucralfate (Carafate Susp) 1 gm QID PO Last administered on 01/19/19 08:39; Admin Dose 1 GM; Start 01/16/19 at 17:00 Pantoprazole (Protonix Tab) 40 mg BID@06,18 PO Last administered on 01/19/19 05:21; Admin Dose 40 MG; Start 01/16/19 at 18:00 Albuterol/ Ipratropium (Duoneb) 3 ml Q6HWA RESP THERAPY HHN Last administered on 01/19/19 09:39; Admin Dose 3 ML; Start 01/16/19 at 20:00 Albuterol/ Ipratropium (Duoneb) 3 ml Q2H RESP THERAPY PRN HHN shortness of judith ath; Start 01/16/19 at 18:00 Budesonide (Pulmicort (Neb)) 0.5 mg BID RESP THERAPY HHN Last administered on 01/19/19 09:40; Admin Dose 0.5 MG; Start 01/16/19 at 20:00 Dobutamine HCl/ Dextrose 250 ml @ 7.26 mls/hr TITRATE IV Last administered on 01/18/19 13:38; Admin Dose 7.26 MLS/HR; Start 01/18/19 at 13:30 Bumetanide (Bumex) 1 mg BID DIURETICS PO Last administered on 01/19/19 10:05; Admin Dose 1 MG; Start 01/19/19 at 09:00 VLADIMIR MORGAN NP Jan 19, 2019 11:56
--- NOTE | 2019-01-19 12:18 | PN ---
Date/Time of Note Date/Time of Note DATE: 01/19/19 TIME: 12:17 Objective Vitals Vital Signs Date Temp Pulse Resp B/P (MAP) Pulse Ox O2 O2 Flow FiO2 Time Delivery Rate 01/19/19 77 22 81/55 (64) 100 Room Air 11:45 01/19/19 21 09:42 01/19/19 97.7 08:00 01/19/19 2.0 05:45 Intake and Output 01/18/19 01/18/19 01/19/19 1515:00 23:00 07:00 IntakeIntake Total 599.86 ml 138.08 ml 58.08 ml OutputOutput Total 300 ml 1200 ml 485 ml BalanceBalance 299.86 ml -1061.92 ml -426.92 ml Results Result Diagram: 01/19/19 0500 01/19/19 0500 Medications Medications Current Medications Apixaban (Eliquis) 2.5 mg BID PO Last administered on 01/19/19at 08:40; Admin Dose 2.5 MG; Start 01/13/19 at 21:00 Atorvastatin Calcium (Lipitor) 80 mg QHS PO Last administered on 01/18/19at 21:08; Admin Dose 80 MG; Start 01/13/19 at 21:00 Clopidogrel Bisulfate (plaVIX) 75 mg DAILY PO Last administered on 01/19/19at 08:39; Admin Dose 75 MG; Start 01/14/19 at 09:00 Ferrous Sulfate (Ferrous Sulfate (Ec)) 325 mg DAILY PO Last administered on 01/19/19at 08:39; Admin Dose 325 MG; Start 01/14/19 at 09:00 Fluticasone/ Vilanterol (Breo Ellipta 100-25 Mcg Inh) 1 inh DAILY INH Last administered on 01/19/19at 10:06; Admin Dose 1 INH; Start 01/14/19 at 09:00 IV Flush (NS 3 ml) 3 ml PER PROTOCOL IV ; Start 01/13/19 at 18:30 Lorazepam (Ativan) 0.5 mg Q6H PRN IV .ANXIETY; Start 01/13/19 at 18:30 Ondansetron HCl (Zofran Inj) 4 mg Q6H PRN IV NAUSEA/VOMITING; Start 01/13/19 at 18:30 Nitroglycerin (Nitroglycerin (Sl Tab) 0.4 Mg) 1 tab Q5M PRN SL .CHEST PAIN; Start 01/13/19 at 18:30 Acetaminophen (Tylenol Tab) 650 mg Q6H PRN PO .PAIN 1-3 OR TEMP; Start 01/13/19 at 18:30 Docusate Sodium (Colace) 100 mg Q12H PRN PO .CONSTIPATION; Start 01/13/19 at 18:30 Magnesium Hydroxide (Milk Of Mag) 30 ml DAILY PRN PO .CONSTIPATION; Start at 18:30 Morphine Sulfate (morphine) 2 mg Q4H PRN IV SEVERE PAIN LEVEL 7-10 Last administered on 01/16/19 13:06; Admin Dose 2 MG; Start 01/16/19 at 13:00 Sucralfate (Carafate Susp) 1 gm QID PO Last administered on 01/19/19 08:39; Admin Dose 1 GM; Start 01/16/19 at 17:00 Pantoprazole (Protonix Tab) 40 mg BID@06,18 PO Last administered on 01/19/19 05:21; Admin Dose 40 MG; Start 01/16/19 at 18:00 Albuterol/ Ipratropium (Duoneb) 3 ml Q6HWA RESP THERAPY HHN Last administered on 01/19/19 09:39; Admin Dose 3 ML; Start 01/16/19 at 20:00 Albuterol/ Ipratropium (Duoneb) 3 ml Q2H RESP THERAPY PRN HHN shortness of breath; Start 01/16/19 at 18:00 Budesonide (Pulmicort (Neb)) 0.5 mg BID RESP THERAPY HHN Last administered on 01/19/19 09:40; Admin Dose 0.5 MG; Start 01/16/19 at 20:00 Dobutamine HCl/ Dextrose 250 ml @ 7.26 mls/hr TITRATE IV Last administered on 01/18/19 13:38; Admin Dose 7.26 MLS/HR; Start 01/18/19 at 13:30 Bumetanide (Bumex) 1 mg BID DIURETICS PO Last administered on 01/19/19 10:05; Admin Dose 1 MG; Start 01/19/19 at 09:00 VTE Prophylaxis Risk score (from Nsg)>0 risk: 6 SCD applied (from Nsg): No SCD contraindication: other Lines/Catheters IV Catheter Type: Trent in Place: No Assessment/Plan Hospital Course Subjective Patient doing well. still on dobutamine, no complaints Objective Physical exam General: Patient is laying in bed and answers questions appropriately Mentation: Patient is alert and oriented 4, Head: Normocephalic atraumatic Eyes: EOMI, pupils reactive to light Neck: Supple, nontender, midline Respiratory: Coarse to auscultation bilaterally Cardiovascular: regular rate, no obvious murmurs Gastrointestinal: Epigastric mildly tender to palpation, bowel sounds heard. Neurological: Moves all extremities spontaneously Skin: No new skin lesions Assessment/Plan Epigastric pain, -Resolved, likely some gastritis -HIDA scan negative for cholecystitis -Continue Carafate and Protonix Hypotension, questionable cardiorenal syndrome -in ICU for dobutamine drip - PICC line placed in case of pressors -Cardiology and nephrology recommendations appreciated Questionable mass -Spoke with patient's team truck driver who knows patient very well, will follow-up outpatient and get a repeat CT scan to further elucidate. Acute on chronic systolic heart failure - BNP noted - Cardiology consulted for diuretic recommendations. - Monitor I/O and daily weights - ECHO from 08/2018 noted with EF 20% and significant pulmonary HTN SILVESTRE on CKD - Nephrology, Dr. Garvin, consulted for recommendations given patient needs to be on diuretics -Ultrasound noted -avoid nephrotoxic agents Pulmonary HTN - noted on recent ECHO and most likely contributing to SOB - Supplemental O2 - Will start Sildenafil if okay with pulmonology and cardiology, however given patient's known pulmonary hypertension and multiple cardiac issues as well as pulmonary issues, will likely defer to outpatient initiation of treatment if any. - pulmonary consultation placed Anemia of chronic disease - stable COPD -Nebulizers - no exacerbation noted Atrial fibrillation - continue home medications - rate controlled - on Eliquis Ischemic cardiomyopathy -Medications per team truck driver Coronary artery disease -Medications per team truck driver PAD -on Plavix AICD Diet -Cardiac History of home O2 use -Off oxygen for now Disposition -in ICU, cont dobutamine drip -More than 40 minutes of critical care time was spent on this encounter CASSY SAUNDERS Jan 19, 2019 12:18
--- NOTE | 2019-01-19 17:22 | CONS ---
Assessment/Plan Assessment/Plan Assessment/Plan (Daily) 1. Acute kidney injury on CKD III due to Hemodynamics from CHF 2. acute on chronic Systolic HF with EF 20% 3. Severe pulmonary HTN 4. Ischemic CM with EF 20% s/p PCI in 11/2017 at [facility] 5. H/o CAD - attempted PCI of ENDODONTIC ASSISTANT of mid Cx and prox RCA by me 11/22/17 which was unsuccessful but had successful PCI 12/01/17 at [facility]. Now fully revascularized. 5. H/o Paroxysmal atrial fibrillation s/p AICD placement 6. H/o Chronic respiratory failur from COPD on home oxygen Plan: BUN/Cr went upto 58/2.41, Other electrolytes stable bumex gtt for today also will follow up Consultation Date/Type/Reason Admit Date/Time Jan 13, 2019 at 18:31 Initial Consult Date 01/14/19 Type of Consult NEPHROLOGY Requesting Provider: IDA PERAZA MD Date/Time of Note DATE: 01/19/19 TIME: 17:22 Exam/Review of Systems Exam Vitals Vital Signs Date Temp Pulse Resp B/P (MAP) Pulse Ox O2 O2 Flow FiO2 Time Delivery Rate 01/19/19 74 19 87/52 (64) 99 Room Air 16:30 01/19/19 97.3 16:00 01/19/19 21 13:50 01/19/19 2.0 05:45 Intake and Output 01/18/19 01/18/19 01/19/19 1515:00 23:00 07:00 IntakeIntake Total 599.86 ml 138.08 ml 58.08 ml OutputOutput Total 300 ml 1200 ml 485 ml BalanceBalance 299.86 ml -1061.92 ml -426.92 ml Results Result Diagram: 01/19/19 0500 01/19/19 0500 Results 24hrs Laboratory Tests Test 01/19/19 05:00 01/19/19 09:20 White Blood Count 5.7 Red Blood Count 3.99 L Hemoglobin 10.4 L Hematocrit 33.0 L Mean Corpuscular Volume 82.7 Mean Corpuscular Hemoglobin 26.1 L Mean Corpuscular Hemoglobin Concent 31.5 L Red Cell Distribution Width 17.6 H Platelet Count 200 Mean Platelet Volume 10.7 H Immature Granulocytes % 0.400 Neutrophils % 68.5 Lymphocytes % 19.5 Monocytes % 7.7 Eosinophils % 3.2 Basophils % 0.7 Nucleated Red Blood Cells % 0.0 Immature Granulocytes # 0.020 Neutrophils # 3.9 Lymphocytes # 1.1 Monocytes # 0.4 Eosinophils # 0.2 Basophils # 0.0 Nucleated Red Blood Cells # 0.0 Sodium Level 136 Potassium Level 3.1 L Chloride Level 94 L Carbon Dioxide Level 29 Anion Gap 13 Blood Urea Nitrogen 59 H Creatinine 1.82 H Est Glomerular Filtrat Rate mL/min Glucose Level 111 Calcium Level 9.5 Phosphorus Level 3.5 Magnesium Level 2.4 Lactic Acid Level 2.8 *H Medications Medication Current Medications Apixaban (Eliquis) 2.5 mg BID PO Last administered on 01/19/19 08:40; Admin Dose 2.5 MG; Start 01/13/19 at 21:00 Atorvastatin Calcium (Lipitor) 80 mg QHS PO Last administered on 01/18/19 21:08; Admin Dose 80 MG; Start 01/13/19 at 21:00 Clopidogrel Bisulfate (plaVIX) 75 mg DAILY PO Last administered on 01/19/19 08:39; Admin Dose 75 MG; Start 01/14/19 at 09:00 Ferrous Sulfate (Ferrous Sulfate (Ec)) 325 mg DAILY PO Last administered on 01/19/19 08:39; Admin Dose 325 MG; Start 01/14/19 at 09:00 Fluticasone/ Vilanterol (Breo Ellipta 100-25 Mcg Inh) 1 inh DAILY INH Last administered on 01/19/19 10:06; Admin Dose 1 INH; Start 01/14/19 at 09:00 IV Flush (NS 3 ml) 3 ml PER PROTOCOL IV ; Start 01/13/19 at 18:30 Lorazepam (Ativan) 0.5 mg Q6H PRN IV .ANXIETY; Start 01/13/19 at 18:30 Ondansetron HCl (Zofran Inj) 4 mg Q6H PRN IV NAUSEA/VOMITING; Start 01/13/19 at 18:30 Nitroglycerin (Nitroglycerin (Sl Tab) 0.4 Mg) 1 tab Q5M PRN SL .CHEST PAIN; Start 01/13/19 at 18:30 Acetaminophen (Tylenol Tab) 650 mg Q6H PRN PO .PAIN 1-3 OR TEMP; Start 01/13/19 at 18:30 Docusate Sodium (Colace) 100 mg Q12H PRN PO .CONSTIPATION; Start 01/13/19 at 18:30 Magnesium Hydroxide (Milk Of Mag) 30 ml DAILY PRN PO .CONSTIPATION; Start 01/13/19 at 18:30 Morphine Sulfate (morphine) 2 mg Q4H PRN IV SEVERE PAIN LEVEL 7-10 Last administered on 01/16/19 13:06; Admin Dose 2 MG; Start 01/16/19 at 13:00 Sucralfate (Carafate Susp) 1 gm QID PO Last administered on 01/19/19 12:57; Admin Dose 1 GM; Start 01/16/19 at 17:00 Pantoprazole (Protonix Tab) 40 mg BID@06,18 PO Last administered on 01/19/19 05:21; Admin Dose 40 MG; Start 01/16/19 at 18:00 Albuterol/ Ipratropium (Duoneb) 3 ml Q6HWA RESP THERAPY HHN Last administered on 01/19/19 13:47; Admin Dose 3 ML; Start 01/16/19 at 20:00 Albuterol/ Ipratropium (Duoneb) 3 ml Q2H RESP THERAPY PRN HHN shortness of breath; Start 01/16/19 at 18:00 Budesonide (Pulmicort (Neb)) 0.5 mg BID RESP THERAPY HHN Last administered on 01/19/19 09:40; Admin Dose 0.5 MG; Start 01/16/19 at 20:00 Dobutamine HCl/ Dextrose 250 ml @ 7.26 mls/hr TITRATE IV Last administered on 01/18/19 13:38; Admin Dose 7.26 MLS/HR; Start 01/18/19 at 13:30 Bumetanide (Bumex) 1 mg BID DIURETICS PO Last administered on 01/19/19 10:05; Admin Dose 1 MG; Start 01/19/19 at 09:00 DYLAN LUGO MD Jan 19, 2019 17:22
[2019-01-19] MEDS ORDERED: BUMETANIDE 12 MG in DEXTROSE 5% 72 ML IV ONE (18:30)
[2019-01-19] MEDS: ATORVASTATIN 80 MG TAB PO SCH (21:35)
[2019-01-19] MEDS: DOBUTamine/D5W 2 MG/ML DRIP 250 ML IV SCH (21:36)
[2019-01-20] VITALS (35 sets, daily range): BP systolic 80–103; BP diastolic 48–73; PULSE 66–91; RESP 14–46
[2019-01-20] MEDS: PANTOPRAZOLE (EC) 40 MG TAB PO SCH (06:00)
[2019-01-20] MEDS ORDERED: POTASSIUM CHLORIDE 100 ML IVPB ONE (07:00)
[2019-01-20] MEDS: ALBUTEROL/IPRATROPIUM (NEB) 3 ML AMP HHN SCH (07:50)
[2019-01-20] MEDS: BUDESONIDE (NEB) 0.5MG/2ML AMP HHN SCH (08:00)
--- NOTE | 2019-01-20 08:16 | CONS ---
Assessment/Plan Assessment/Plan Assessment/Plan (Daily) 1. Acute kidney injury on CKD III due to Hemodynamics from CHF 2. acute on chronic Systolic HF with EF 20% 3. Severe pulmonary HTN 4. Ischemic CM with EF 20% s/p PCI in 11/2017 at [facility] 5. H/o CAD - attempted PCI of FIELD GAUGER of mid Cx and prox RCA by me 11/22/17 which was unsuccessful but had successful PCI 12/01/17 at [facility]. Now fully revascularized. 5. H/o Paroxysmal atrial fibrillation s/p AICD placement 6. H/o Chronic respiratory failur from COPD on home oxygen Plan: BUN/Cr went upto 58/2.41, Other electrolytes stable s/p bumex gt , ok to d/c home with PO Bumex will follow up Consultation Date/Type/Reason Admit Date/Time Jan 13, 2019 at 18:31 Initial Consult Date 01/14/19 Type of Consult NEPHROLOGY Requesting Provider: IDA PERAZA MD Date/Time of Note DATE: 01/20/19 TIME: 08:16 Exam/Review of Systems Exam Vitals Vital Signs Date Temp Pulse Resp B/P (MAP) Pulse Ox O2 O2 Flow FiO2 Time Delivery Rate 01/20/19 68 20 98 21 07:53 01/20/19 98/65 (76) Room Air 06:00 01/20/19 97.5 04:00 01/19/19 2.0 05:45 Intake and Output 01/19/19 01/19/19 01/20/19 1515:00 23:00 07:00 IntakeIntake Total 700.82 ml 203.08 ml 103.56 ml OutputOutput Total 325 ml 350 ml 820 ml BalanceBalance 375.82 ml -146.92 ml -716.44 ml Results Result Diagram: 01/20/19 0427 01/20/19 0427 Results 24hrs Laboratory Tests Test 01/19/19 09:20 01/20/19 04:27 Lactic Acid Level 2.8 *H White Blood Count 6.2 Red Blood Count 4.41 L Hemoglobin 11.4 L Hematocrit 37.0 L Mean Corpuscular Volume 83.9 Mean Corpuscular Hemoglobin 25.9 L Mean Corpuscular Hemoglobin Concent 30.8 L Red Cell Distribution Width 18.1 H Platelet Count 208 Mean Platelet Volume 10.1 Immature Granulocytes % 0.500 H Neutrophils % 72.2 Lymphocytes % 15.2 Monocytes % 8.7 Eosinophils % 2.9 Basophils % 0.5 Nucleated Red Blood Cells % 0.0 Immature Granulocytes # 0.030 Neutrophils # 4.5 Lymphocytes # 1.0 Monocytes # 0.5 Eosinophils # 0.2 Basophils # 0.0 Nucleated Red Blood Cells # 0.0 Sodium Level 135 Potassium Level 3.2 L Chloride Level 92 L Carbon Dioxide Level 31 Anion Gap 12 Blood Urea Nitrogen 49 H Creatinine 1.69 H Est Glomerular Filtrat Rate mL/min Glucose Level 133 Calcium Level 9.9 Phosphorus Level 3.1 Magnesium Level 2.4 Medications Medication Current Medications Apixaban (Eliquis) 2.5 mg BID PO Last administered on 01/19/19 21:36; Admin Dose 2.5 MG; Start 01/13/19 at 21:00 Atorvastatin Calcium (Lipitor) 80 mg QHS PO Last administered on 01/19/19 21:35; Admin Dose 80 MG; Start 01/13/19 at 21:00 Clopidogrel Bisulfate (plaVIX) 75 mg DAILY PO Last administered on 01/19/19 08:39; Admin Dose 75 MG; Start 01/14/19 at 09:00 Ferrous Sulfate (Ferrous Sulfate (Ec)) 325 mg DAILY PO Last administered on 01/19/19 08:39; Admin Dose 325 MG; Start 01/14/19 at 09:00 Fluticasone/ Vilanterol (Breo Ellipta 100-25 Mcg Inh) 1 inh DAILY INH Last administered on 01/19/19 10:06; Admin Dose 1 INH; Start 01/14/19 at 09:00 IV Flush (NS 3 ml) 3 ml PER PROTOCOL IV ; Start 01/13/19 at 18:30 Lorazepam (Ativan) 0.5 mg Q6H PRN IV .ANXIETY; Start 01/13/19 at 18:30 Ondansetron HCl (Zofran Inj) 4 mg Q6H PRN IV NAUSEA/VOMITING; Start 01/13/19 at 18:30 Nitroglycerin (Nitroglycerin (Sl Tab) 0.4 Mg) 1 tab Q5M PRN SL .CHEST PAIN; Start 01/13/19 at 18:30 Acetaminophen (Tylenol Tab) 650 mg Q6H PRN PO .PAIN 1-3 OR TEMP; Start 01/13/19 at 18:30 Docusate Sodium (Colace) 100 mg Q12H PRN PO .CONSTIPATION; Start 01/13/19 at 18:30 Magnesium Hydroxide (Milk Of Mag) 30 ml DAILY PRN PO .CONSTIPATION; Start 01/13/19 at 18:30 Morphine Sulfate (morphine) 2 mg Q4H PRN IV SEVERE PAIN LEVEL 7-10 Last administered on 01/16/19 13:06; Admin Dose 2 MG; Start 01/16/19 at 13:00 Sucralfate (Carafate Susp) 1 gm QID PO Last administered on 01/19/19 21:36; Admin Dose 1 GM; Start 01/16/19 at 17:00 Pantoprazole (Protonix Tab) 40 mg BID@06,18 PO Last administered on 01/19/19 17:50; Admin Dose 40 MG; Start 01/16/19 at 18:00 Albuterol/ Ipratropium (Duoneb) 3 ml Q6HWA RESP THERAPY HHN Last administered on 01/20/19at 07:50; Admin Dose 3 ML; Start 01/16/19 at 20:00 Albuterol/ Ipratropium (Duoneb) 3 ml Q2H RESP THERAPY PRN HHN shortness of breath; Start 01/16/19 at 18:00 Budesonide (Pulmicort (Neb)) 0.5 mg BID RESP THERAPY HHN Last administered on 01/20/19at 08:00; Admin Dose 0.5 MG; Start 01/16/19 at 20:00 Dobutamine HCl/ Dextrose 250 ml @ 7.26 mls/hr TITRATE IV Last administered on 01/19/19at 21:36; Admin Dose 7.26 MLS/HR; Start 01/18/19 at 13:30 Potassium Chloride 100 ml @ 50 mls/hr ONCE ONCE IVPB ; Start 01/20/19 at 07:00; Stop 01/20/19 at 08:59 DYLAN LUGO MD Jan 20, 2019 08:16
[2019-01-20] MEDS ORDERED: BUMETANIDE 1 MG INJ IV SCH (08:30)
[2019-01-20] MEDS: CLOPIDOGREL 75 MG TAB PO SCH (08:34)
[2019-01-20] MEDS: SUCRALFATE (100 MG/ML) 10ML CUP PO SCH ×2 (08:34→12:42)
[2019-01-20] MEDS: FERROUS SULFATE (EC) 325 MG TAB PO SCH (08:35)
[2019-01-20] MEDS: FLUTICASONE/VILANTEROL 100-25 INH SCH (08:36)
[2019-01-20] MEDS: APIXABAN 5 MG TABLET PO SCH (08:36)
--- NOTE | 2019-01-20 08:44 | PN ---
Date/Time of Note Date/Time of Note DATE: 01/20/19 TIME: 08:43 Objective Vitals Vital Signs Date Temp Pulse Resp B/P (MAP) Pulse Ox O2 O2 Flow FiO2 Time Delivery Rate 01/20/19 68 20 98 21 07:53 01/20/19 98/65 (76) Room Air 06:00 01/20/19 97.5 04:00 01/19/19 2.0 05:45 Intake and Output 01/19/19 01/19/19 01/20/19 1515:00 23:00 07:00 IntakeIntake Total 700.82 ml 203.08 ml 103.56 ml OutputOutput Total 325 ml 350 ml 820 ml BalanceBalance 375.82 ml -146.92 ml -716.44 ml Results Result Diagram: 01/20/19 0427 01/20/19 0427 Medications Medications Current Medications Apixaban (Eliquis) 2.5 mg BID PO Last administered on 01/20/19 08:36; Admin Dose 2.5 MG; Start 01/13/19 at 21:00 Atorvastatin Calcium (Lipitor) 80 mg QHS PO Last administered on 01/19/19 21:35; Admin Dose 80 MG; Start 01/13/19 at 21:00 Clopidogrel Bisulfate (plaVIX) 75 mg DAILY PO Last administered on 01/20/19 08:34; Admin Dose 75 MG; Start 01/14/19 at 09:00 Ferrous Sulfate (Ferrous Sulfate (Ec)) 325 mg DAILY PO Last administered on 01/20/19 08:35; Admin Dose 325 MG; Start 01/14/19 at 09:00 Fluticasone/ Vilanterol (Breo Ellipta 100-25 Mcg Inh) 1 inh DAILY INH Last administered on 01/20/19 08:36; Admin Dose 1 INH; Start 01/14/19 at 09:00 IV Flush (NS 3 ml) 3 ml PER PROTOCOL IV ; Start 01/13/19 at 18:30 Lorazepam (Ativan) 0.5 mg Q6H PRN IV .ANXIETY; Start 01/13/19 at 18:30 Ondansetron HCl (Zofran Inj) 4 mg Q6H PRN IV NAUSEA/VOMITING; Start 01/13/19 at 18:30 Nitroglycerin (Nitroglycerin (Sl Tab) 0.4 Mg) 1 tab Q5M PRN SL .CHEST PAIN; Start 01/13/19 at 18:30 Acetaminophen (Tylenol Tab) 650 mg Q6H PRN PO .PAIN 1-3 OR TEMP; Start 01/13/19 at 18:30 Docusate Sodium (Colace) 100 mg Q12H PRN PO .CONSTIPATION; Start 01/13/19 at 18:30 Magnesium Hydroxide (Milk Of Mag) 30 ml DAILY PRN PO .CONSTIPATION; Start 12/18 02/04 at 18:30 Morphine Sulfate (morphine) 2 mg Q4H PRN IV SEVERE PAIN LEVEL 7-10 Last administered on 01/16/19 13:06; Admin Dose 2 MG; Start 01/16/19 at 13:00 Sucralfate (Carafate Susp) 1 gm QID PO Last administered on 01/20/19 08:34; Admin Dose 1 GM; Start 01/16/19 at 17:00 Pantoprazole (Protonix Tab) 40 mg BID@06,18 PO Last administered on 01/19/19 17:50; Admin Dose 40 MG; Start 01/16/19 at 18:00 Albuterol/ Ipratropium (Duoneb) 3 ml Q6HWA RESP THERAPY HHN Last administered on 01/20/19 07:50; Admin Dose 3 ML; Start 01/16/19 at 20:00 Albuterol/ Ipratropium (Duoneb) 3 ml Q2H RESP THERAPY PRN HHN shortness of breath; Start 01/16/19 at 18:00 Budesonide (Pulmicort (Neb)) 0.5 mg BID RESP THERAPY HHN Last administered on 01/20/19at 08:00; Admin Dose 0.5 MG; Start 01/16/19 at 20:00 Dobutamine HCl/ Dextrose 250 ml @ 7.26 mls/hr TITRATE IV Last administered on 01/19/19 21:36; Admin Dose 7.26 MLS/HR; Start 01/18/19 at 13:30 Potassium Chloride 100 ml @ 50 mls/hr ONCE ONCE IVPB Last administered on 01/20/19 08:35; Admin Dose 50 MLS/HR; Start 01/20/19 at 07:00; Stop 01/20/19 at 08:59 Potassium Chloride 100 ml @ 50 mls/hr Q2H IVPB ; Start 01/20/19 at 08:30; Stop 01/20/19 at 12:29; Status UNV Bumetanide (Bumex) 1 mg BID DIURETICS IV ; Start 01/20/19 at 08:30; Status UNV VTE Prophylaxis [place] [facility] [place]: 9 SCD applied [place] [facility] [place] No SCD contraindication: other Lines/Catheters IV Catheter Type: Trent in Place: No Assessment/Plan Hospital Course Subjective Patient doing well. still on dobutamine, no complaints Objective Physical exam General: Patient is laying in bed and answers questions appropriately Mentation: Patient is alert and oriented 4, Head: Normocephalic atraumatic Eyes: EOMI, pupils reactive to light Neck: Supple, nontender, midline Respiratory: Coarse to auscultation bilaterally Cardiovascular: regular rate, no obvious murmurs Gastrointestinal: Epigastric mildly tender to palpation, bowel sounds heard. Neurological: Moves all extremities spontaneously Skin: No new skin lesions Assessment/Plan Epigastric pain, -Resolved, likely some gastritis -HIDA scan negative for cholecystitis -Continue Carafate and Protonix Hypotension, questionable cardiorenal syndrome -in ICU for dobutamine drip - PICC line placed in case of pressors -Cardiology and nephrology recommendations appreciated Questionable mass -Spoke with patient's hospitality aide who knows patient very well, will follow-up outpatient and get an outpatient repeat CT scan to further elucidate. Acute on chronic systolic heart failure - BNP noted - Cardiology consulted for diuretic recommendations. - Monitor I/O and daily weights - ECHO from 08/2018 noted with EF 20% and significant pulmonary HTN SILVESTRE on CKD - Nephrology, Dr. Garvin, consulted for recommendations given patient needs to be on diuretics -Ultrasound noted -avoid nephrotoxic agents Pulmonary HTN - noted on recent ECHO and most likely contributing to SOB - Supplemental O2 - Will start Sildenafil if okay with pulmonology and cardiology, however given patient's known pulmonary hypertension and multiple cardiac issues as well as pulmonary issues, will likely defer to outpatient initiation of treatment if any. - pulmonary consultation placed Anemia of chronic disease - stable COPD -Nebulizers - no exacerbation noted Atrial fibrillation - continue home medications - rate controlled - on Eliquis Ischemic cardiomyopathy -Medications per hospitality aide Coronary artery disease -Medications per hospitality aide PAD -on Plavix AICD Diet -Cardiac History of home O2 use -Off oxygen for now Disposition -in ICU, cont dobutamine drip, possible DC of dobutamine drip if cardiology is happy with his numbers today. -More than 40 minutes of critical care time was spent on this encounter CASSY SAUNDERS Jan 20, 2019 08:44
[2019-01-20] MEDS ORDERED: POTASSIUM CHLORIDE 20 MEQ POWDER FOR ORAL SOLN PO ONE (10:00)
--- NOTE | 2019-01-20 10:08 | CONS ---
Assessment/Plan Assessment/Plan Hospital Course (Demo Recall) Cardiogenic shock: Was showing signs of hypoperfusion with cool extremities and worsening renal function. Echo showed RA pressure of 15 mmHg. Started on dobutamine with improved perfusion and diuresis. Renal function also improved Acute on chronic renal failure: Cr has fluctuated and as high as 2 before. Outpt baseline is ~1.2-1.6 when stable.Up to 2.4 this admission due to renal hypoperfusion. Now improved to 1.7 Acute on chronic systolic heart failure: Likely dietary indiscretion. Has been fluctuating but significantly better now NSVT: run of NSVT 01/15/19 which appears to have been successfully terminated with ATP. No recurrence Lactic acidosis: due to hypoperfusion secondary to ADHF. Severe pulmonary HTN: PAP as high as 85 mmHg recently but closer to 70mmHg when compensated. Likely combination of heart failure and intrinsic lung disease H/o anterior STEMI: occurred 09/16/17. s/p PCI of prox-mid LAD. Ischemic cardiomyopathy: EF 20% PAD: right iliac 95% seen on cath 09/03. Considering outpt revascularization but pt refused. CAD: attempted PCI of RETORT PRE COOKER of mid Cx and prox RCA by me 11/22/17 which was unsuccessful but had successful PCI 12/01/17 at [facility]. Now fully revascularized. s/p [employer] ICD 01/2018 Paroxysmal atrial fibrillation: occurred during STEMI. On Eliquis Chronic respiratory failure: now off home oxygen COPD: CT 01/16/19 showed emphysema. 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 -decrease to dobutamine 2.5mcg today. If stable, d/c tomorrow -continue bumex 1mg IV BID today, eventually will need 1mg PO TID -check echo while on dobutamine -continue Eliquis 2.5mg BID -plavix 75mg -lipitor 80mg Consultation Date/Type/Reason Admit Date/Time Jan 13, 2019 at 18:31 Initial Consult Date 01/14/19 Type of Consult Cardiology Requesting Provider: IDA PERAZA MD Date/Time of Note DATE: 01/20/19 TIME: 09:59 24 HR Interval Summary Free Text/Dictation Hemodynamically remains stable. Cr slightly improved to 1.7 Was given bumex drip yesterday evening due to poor urine output. Net negative 500mL Feels "weak". No dyspnea or chest pain. On room air now Exam/Review of Systems Vital Signs Vitals Vital Signs Date Temp Pulse Resp B/P (MAP) Pulse Ox O2 O2 Flow FiO2 Time Delivery Rate 01/20/19 77 43 97/66 (76) 100 Room Air 09:00 01/20/19 97.5 08:00 01/20/19 21 07:53 01/19/19 2.0 05:45 Intake and Output 01/19/19 01/19/19 01/20/19 1515:00 23:00 07:00 IntakeIntake Total 700.82 ml 203.08 ml 103.56 ml OutputOutput Total 325 ml 350 ml 820 ml BalanceBalance 375.82 ml -146.92 ml -716.44 ml Exam Constitutional: alert, oriented Psych: no complaints Head: normocephalic, atraumatic Neck: No jvd Respiratory: crackles/rales (mild at bases); No clear to auscultation Cardiovascular: regular rate and rhythm, systolic murmur (2/6 HSM), other (warm extremities ); No edema Gastrointestinal: soft, non-tender; No distended Neurological: nl mental status, nl speech Labs Result Diagram: 01/20/197 01/20/19 0427 Results 24hrs Laboratory Tests Test 01/20/19 04:27 White Blood Count 6.2 Red Blood Count 4.41 L Hemoglobin 11.4 L Hematocrit 37.0 L Mean Corpuscular Volume 83.9 Mean Corpuscular Hemoglobin 25.9 L Mean Corpuscular Hemoglobin Concent 30.8 L Red Cell Distribution Width 18.1 H Platelet Count 208 Mean Platelet Volume 10.1 Immature Granulocytes % 0.500 H Neutrophils % 72.2 Lymphocytes % 15.2 Monocytes % 8.7 Eosinophils % 2.9 Basophils % 0.5 Nucleated Red Blood Cells % 0.0 Immature Granulocytes # 0.030 Neutrophils # 4.5 Lymphocytes # 1.0 Monocytes # 0.5 Eosinophils # 0.2 Basophils # 0.0 Nucleated Red Blood Cells # 0.0 Sodium Level 135 Potassium Level 3.2 L Chloride Level 92 L Carbon Dioxide Level 31 Anion Gap 12 Blood Urea Nitrogen 49 H Creatinine 1.69 H Est Glomerular Filtrat Rate mL/min Glucose Level 133 Calcium Level 9.9 Phosphorus Level 3.1 Magnesium Level 2.4 Medications Medications Current Medications Apixaban (Eliquis) 2.5 mg BID PO Last administered on 01/20/19 08:36; Admin Dose 2.5 MG; Start 01/13/19 at 21:00 Atorvastatin Calcium (Lipitor) 80 mg QHS PO Last administered on 01/19/19 21:35; Admin Dose 80 MG; Start 01/13/19 at 21:00 Clopidogrel Bisulfate (plaVIX) 75 mg DAILY PO Last administered on 01/20/19at 0 8:34; Admin Dose 75 MG; Start 01/14/19 at 09:00 Ferrous Sulfate (Ferrous Sulfate (Ec)) 325 mg DAILY PO Last administered on 01/20/19 08:35; Admin Dose 325 MG; Start 01/14/19 at 09:00 Fluticasone/ Vilanterol (Breo Ellipta 100-25 Mcg Inh) 1 inh DAILY INH Last administered on 01/20/19 08:36; Admin Dose 1 INH; Start 01/14/19 at 09:00 IV Flush (NS 3 ml) 3 ml PER PROTOCOL IV ; Start 01/13/19 at 18:30 Lorazepam (Ativan) 0.5 mg Q6H PRN IV .ANXIETY; Start 01/13/19 at 18:30 Ondansetron HCl (Zofran Inj) 4 mg Q6H PRN IV NAUSEA/VOMITING; Start 01/13/19 at 18:30 Nitroglycerin (Nitroglycerin (Sl Tab) 0.4 Mg) 1 tab Q5M PRN SL .CHEST PAIN; Start 01/13/19 at 18:30 Acetaminophen (Tylenol Tab) 650 mg Q6H PRN PO .PAIN 1-3 OR TEMP; Start 01/13/19 at 18:30 Docusate Sodium (Colace) 100 mg Q12H PRN PO .CONSTIPATION; Start 01/13/19 at 18:30 Magnesium Hydroxide (Milk Of Mag) 30 ml DAILY PRN PO .CONSTIPATION; Start 01/13/19 at 18:30 Morphine Sulfate (morphine) 2 mg Q4H PRN IV SEVERE PAIN LEVEL 7-10 Last administered on 01/16/19 13:06; Admin Dose 2 MG; Start 01/16/19 at 13:00 Sucralfate (Carafate Susp) 1 gm QID PO Last administered on 01/20/19 08:34; Admin Dose 1 GM; Start 01/16/19 at 17:00 Pantoprazole (Protonix Tab) 40 mg BID@06,18 PO Last administered on 01/19/19 17:50; Admin Dose 40 MG; Start 01/16/19 at 18:00 Albuterol/ Ipratropium (Duoneb) 3 ml Q6HWA RESP THERAPY HHN Last administered on 01/20/19at 07:50; Admin Dose 3 ML; Start 01/16/19 at 20:00 Albuterol/ Ipratropium (Duoneb) 3 ml Q2H RESP THERAPY PRN HHN shortness of breath; Start 01/16/19 at 18:00 Budesonide (Pulmicort (Neb)) 0.5 mg BID RESP THERAPY HHN Last administered on 01/20/19at 08:00; Admin Dose 0.5 MG; Start 01/16/19 at 20:00 Dobutamine HCl/ Dextrose 250 ml @ 7.26 mls/hr TITRATE IV Last administered on 01/19/19at 21:36; Admin Dose 7.26 MLS/HR; Start 01/18/19 at 13:30 Potassium Chloride 100 ml @ 50 mls/hr Q2H IVPB ; Start 01/20/19 at 08:30; Stop 01/20/19 at 12:29 Bumetanide (Bumex) 1 mg BID DIURETICS IV ; Start 01/20/19 at 08:30 JUANITO BENITEZ Jan 20, 2019 10:08
[2019-01-20] MEDS: POTASSIUM CHLORIDE 100 ML IVPB SCH ×2 (10:16→12:41)
--- NOTE | 2019-01-20 12:41 | CONS ---
Consult Date/Type/Reason Admit Date/Time Jan 13, 2019 at 18:31 Initial Consult Date 01/13/19 Type of Consultation: Pulm/CCM Requesting Provider: IDA PERAZA MD Date/Time of Note DATE: 01/20/19 TIME: 12:34 Subjective Remains on dobutamine gtt. Lactate up slightly. Objective Vitals Vital Signs Date Temp Pulse Resp B/P (MAP) Pulse Ox O2 O2 Flow FiO2 Time Delivery Rate 01/20/19 77 12:00 01/20/19 22 89/60 (70) 100 Room Air 11:30 01/20/19 97.5 08:00 01/20/19 21 07:53 01/19/19 2.0 05:45 Intake and Output 01/19/19 01/19/19 01/20/19 1515:00 23:00 07:00 IntakeIntake Total 700.82 ml 203.08 ml 110.82 ml OutputOutput Total 325 ml 350 ml 820 ml BalanceBalance 375.82 ml -146.92 ml -709.18 ml Exam HEENT: Neck supple; no JVD; no LAD, + JVP CVS: RRR, S1 and S2, + S3; Increased S2 CHEST: Clear ABD: Soft, NT, + BS EXT: No c/c/e Results/Medications Result Diagram: 01/20/1942601/20/19426 Results 24 hrs Laboratory Tests Test 01/20/19 04:27 01/20/19 11:24 White Blood Count 6.2 Red Blood Count 4.41 L Hemoglobin 11.4 L Hematocrit 37.0 L Mean Corpuscular Volume 83.9 Mean Corpuscular Hemoglobin 25.9 L Mean Corpuscular Hemoglobin Concent 30.8 L Red Cell Distribution Width 18.1 H Platelet Count 208 Mean Platelet Volume 10.1 Immature Granulocytes % 0.500 H Neutrophils % 72.2 Lymphocytes % 15.2 Monocytes % 8.7 Eosinophils % 2.9 Basophils % 0.5 Nucleated Red Blood Cells % 0.0 Immature Granulocytes # 0.030 Neutrophils # 4.5 Lymphocytes # 1.0 Monocytes # 0.5 Eosinophils # 0.2 Basophils # 0.0 Nucleated Red Blood Cells # 0.0 Sodium Level 135 Potassium Level 3.2 L Chloride Level 92 L Carbon Dioxide Level 31 Anion Gap 12 Blood Urea Nitrogen 49 H Creatinine 1.69 H Est Glomerular Filtrat Rate mL/min Glucose Level 133 Calcium Level 9.9 Phosphorus Level 3.1 Magnesium Level 2.4 Lactic Acid Level 3.5 *H Home Meds Reported Medications Ergocalciferol (Vitamin D2) (VITAMIN D2) 50,000 Unit Capsule, 70753 UNIT PO ONCE A WEEK, CAP 01/13/19 Ferrous Sulfate* (Ferrous Sulfate*) 325 Mg Tabec, 325 MG PO DAILY, TAB 01/13/19 Tiotropium Br/Olodaterol HCl (Stiolto Respimat Inhal [place]) 4 Gm Mist.inhal, 2 PUFF INHALATION DAILY, #1 INHALER 01/13/19 Albuterol Sulfate* (Ventolin HFA*) 18 Gm Hfa.aer.ad, 2 PUFF INHALATION Q4H, #1 INHALER 01/13/19 Bumetanide* (Bumetanide*) 1 Mg Tablet, 1 MG PO BID, TAB 01/13/19 Allopurinol* (Allopurinol*) 300 Mg Tablet, 300 MG PO DAILY, TAB 08/26/18 Potassium Chloride* (K-Dur*) 10 Meq Tab.prt.sr, 10 MEQ PO DAILY, TAB 08/26/18 Atorvastatin* (Atorvastatin*) 80 Mg Tablet, 80 MG PO QHS, #30 TAB 08/26/18 Losartan Potassium* (Losartan Potassium*) 25 Mg Tablet, 25 MG PO DAILY, TAB 08/26/18 Apixaban* (Eliquis*) 2.5 Mg Tablet, 2.5 MG PO BID, TAB 08/26/18 Clopidogrel Bisulfate* (Clopidogrel Bisulfate*) 75 Mg Tablet, 75 MG PO DAILY, #30 TAB 08/26/18 Discontinued Reported Medications Furosemide* (Furosemide*) 40 Mg Tablet, 40 MG PO BID, TAB 08/26/18 Discontinued Scripts Tramadol HCl (Tramadol HCl) 50 Mg Tablet, 50 MG PO BID PRN for PAIN, #8 TAB Prov:CLEO CEDENO MD 09/01/18 Albuterol Sulfate* (Proair HFA*) 8.5 Gm Hfa.aer.ad, 2 PUFF INH Q6H PRN for WHEEZING AND SOB, #1 INHALER 2 Refills Prov:WES DAVID MD 08/30/18 Thiamine* (Vitamin B-1*) 100 Mg Tablet, 100 MG PO DAILY for 30 Days, #30 TAB 1 Refill Prov:WES DAVID MD 08/30/18 Sennosides/Docusate Sodium (Dok Plus Tablet) 1 Each Tablet, 2 TAB PO HS for 5 Da ys, #10 TAB Prov:WES DAVID MD 08/30/18 Lactobacillus Rhamnosus GG (Culturelle) 1 Each Capsule, 1 CAP PO BID for 5 Days, #10 CAP Prov:WES DAVID MD 08/30/18 Rpttepuhors-Y-Ukynnguswn Hb* (Guaifenesin* DM Syrup) 120 Ml Syrup, 10 ML PO Q4H PRN for COUGH for 1 Day Prov:WES DAVID MD 08/30/18 Acetaminophen* (Tylenol*) 325 Mg Tablet, 650 MG PO Q6H PRN for .PAIN 1-3 OR TEMP for 1 Day, TAB Prov:WES DAVID MD 08/30/18 Spironolactone* (Aldactone*) 25 Mg Tablet, 25 MG PO DAILY for 15 Days, #1 TAB Prov:WES DAVID MD 08/30/18 Medications Current Medications Apixaban (Eliquis) 2.5 mg BID PO Last administered on 01/20/19 08:36; Admin Dose 2.5 MG; Start 01/13/19 at 21:00 Atorvastatin Calcium (Lipitor) 80 mg QHS PO Last administered on 01/19/19at 21:35; Admin Dose 80 MG; Start 01/13/19 at 21:00 Clopidogrel Bisulfate (plaVIX) 75 mg DAILY PO Last administered on 01/20/19at 08:34; Admin Dose 75 MG; Start 01/14/19 at 09:00 Ferrous Sulfate (Ferrous Sulfate (Ec)) 325 mg DAILY PO Last administered on 01/20/19 08:35; Admin Dose 325 MG; Start 01/14/19 at 09:00 Fluticasone/ Vilanterol (Breo Ellipta 100-25 Mcg Inh) 1 inh DAILY INH Last administered on 01/20/19 08:36; Admin Dose 1 INH; Start 01/14/19 at 09:00 IV Flush (NS 3 ml) 3 ml PER PROTOCOL IV ; Start 01/13/19 at 18:30 Lorazepam (Ativan) 0.5 mg Q6H PRN IV .ANXIETY; Start 01/13/19 at 18:30 Ondansetron HCl (Zofran Inj) 4 mg Q6H PRN IV NAUSEA/VOMITING; Start 01/13/19 at 18:30 Nitroglycerin (Nitroglycerin (Sl Tab) 0.4 Mg) 1 tab Q5M PRN SL .CHEST PAIN; Start 01/13/19 at 18:30 Acetaminophen (Tylenol Tab) 650 mg Q6H PRN PO .PAIN 1-3 OR TEMP; Start 01/13/19 at 18:30 Docusate Sodium (Colace) 100 mg Q12H PRN PO .CONSTIPATION; Start 01/13/19 at 18:30 Magnesium Hydroxide (Milk Of Mag) 30 ml DAILY PRN PO .CONSTIPATION; Start 01/13/19 at 18:30 Morphine Sulfate (morphine) 2 mg Q4H PRN IV SEVERE PAIN LEVEL 7-10 Last administered on 01/16/19at 13:06; Admin Dose 2 MG; Start 01/16/19 at 13:00 Sucralfate (Carafate Susp) 1 gm QID PO Last administered on 01/20/19 08:34; Admin Dose 1 GM; Start 01/16/19 at 17:00 Pantoprazole (Protonix Tab) 40 mg BID@06,18 PO Last administered on 01/19/19 17:50; Admin Dose 40 MG; Start 01/16/19 at 18:00 Albuterol/ Ipratropium (Duoneb) 3 ml Q6HWA RESP THERAPY HHN Last administered on 01/20/19 07:50; Admin Dose 3 ML; Start 01/16/19 at 20:00 Albuterol/ Ipratropium (Duoneb) 3 ml Q2H RESP THERAPY PRN HHN shortness of breath; Start 01/16/19 at 18:00 Budesonide (Pulmicort (Neb)) 0.5 mg BID RESP THERAPY HHN Last administered on 01/20/19 08:00; Admin Dose 0.5 MG; Start 01/16/19 at 20:00 Dobutamine HCl/ Dextrose 250 ml @ 3.63 mls/hr TITRATE IV Last administered on 8/3/19at 21:36; Admin Dose 7.26 MLS/HR; Start 01/18/19 at 13:30 Bumetanide (Bumex) 1 mg BID DIURETICS IV Last administered on 01/20/19at 10:07; Admin Dose 1 MG; Start 01/20/19 at 08:30 Docusate Sodium (Colace) 100 mg BID PO ; Start 01/20/19 at 21:00 Assessment/Plan Assessment/Plan (Daily) IMP: 1. ADHF/Cardiogenic Shock 2. SILVESTRE--likely cardiorenal 3. NSVT 4. Ischemic CMY 5. Pulm HTN 6. COPD 7. Mild lactic acidosis RECS: 1. Continue dobutamine gtt 2. Obtain ScvO2 to assess for possible up-titration 3. Continue bumex 4. Follow I/O's 5. Replete K+ 6. Family way want sign patient out AMA to resume care at [facility]. May need transplant evaluation. 40 min cc time Case d/w Rusty and RN. JODY RENEE MD Jan 20, 2019 12:41
--- NOTE | 2019-01-20 13:04 | DS ---
Date/Time of Note Date/Time of Note DATE: 01/20/19 TIME: 13:02 Discharge Summary Admission/Discharge Info Admit Date/Time Jan 13, 2019 at 18:31 Discharge Date/Time Patient Condition: Stable Hospital Course Patient's son arrived to the hospital and stated that he will sign his up father out AGAINST MEDICAL ADVICE. Patient is also alert and oriented x4 and understands that leaving AGAINST MEDICAL ADVICE is detrimental to his health and may end up in or debility. Patient and patient's family understands and will sign out AGAINST MEDICAL ADVICE. Home Meds Reported Medications Ergocalciferol (Vitamin D2) (VITAMIN D2) 50,000 Unit Capsule, 52226 UNIT PO ONCE A WEEK, CAP 01/13/19 Ferrous Sulfate* (Ferrous Sulfate*) 325 Mg Tabec, 325 MG PO DAILY, TAB 01/13/19 Tiotropium Br/Olodaterol HCl (Stiolto Respimat Inhal [place]) 4 Gm Mist.inhal, 2 PUFF INHALATION DAILY, #1 INHALER 01/13/19 Albuterol Sulfate* (Ventolin HFA*) 18 Gm Hfa.aer.ad, 2 PUFF INHALATION Q4H, #1 INHALER 01/13/19 Bumetanide* (Bumetanide*) 1 Mg Tablet, 1 MG PO BID, TAB 01/13/19 Allopurinol* (Allopurinol*) 300 Mg Tablet, 300 MG PO DAILY, TAB 08/26/18 Potassium Chloride* (K-Dur*) 10 Meq Tab.prt.sr, 10 MEQ PO DAILY, TAB 08/26/18 Atorvastatin* (Atorvastatin*) 80 Mg Tablet, 80 MG PO QHS, #30 TAB 08/26/18 Losartan Potassium* (Losartan Potassium*) 25 Mg Tablet, 25 MG PO DAILY, TAB 08/26/18 Apixaban* (Eliquis*) 2.5 Mg Tablet, 2.5 MG PO BID, TAB 08/26/18 Clopidogrel Bisulfate* (Clopidogrel Bisulfate*) 75 Mg Tablet, 75 MG PO DAILY, #30 TAB 08/26/18 Discontinued Reported Medications Furosemide* (Furosemide*) 40 Mg Tablet, 40 MG PO BID, TAB 08/26/18 Discontinued Scripts Tramadol HCl (Tramadol HCl) 50 Mg Tablet, 50 MG PO BID PRN for PAIN, #8 TAB Prov:CLEO CEDENO MD 09/01/18 Albuterol Sulfate* (Proair HFA*) 8.5 Gm Hfa.aer.ad, 2 PUFF INH Q6H PRN for WHEEZING AND SOB, #1 INHALER 2 Refills Prov:WES DAVID MD 08/30/18 Thiamine* (Vitamin B-1*) 100 Mg Tablet, 100 MG PO DAILY for 30 Days, #30 TAB 1 Refill Prov:WES DAVID MD 08/30/18 Sennosides/Docusate Sodium (Dok Plus Tablet) 1 Each Tablet, 2 TAB PO HS for 5 Days, #10 TAB Prov:WES DAVID MD 08/30/18 Lactobacillus Rhamnosus GG (Culturelle) 1 Each Capsule, 1 CAP PO BID for 5 Days, #10 CAP Prov:WES DAVID MD 08/30/18 Kocuavdcifo-D-Qbjriodmnn Hb* (Guaifenesin* DM Syrup) 120 Ml Syrup, 10 ML PO Q4H PRN for COUGH for 1 Day Prov:WES DAVID MD 08/30/18 Acetaminophen* (Tylenol*) 325 Mg Tablet, 650 MG PO Q6H PRN for .PAIN 1-3 OR TEMP for 1 Day, TAB Prov:WES DAVID MD 08/30/18 Spironolactone* (Aldactone*) 25 Mg Tablet, 25 MG PO DAILY for 15 Days, #1 TAB Prov:WES DAVID MD 08/30/18 Primary Care Provider Kishan Lara Time spent on discharge: > 30 minutes Pending Labs Laboratory Tests Test 01/20/19 04:27 01/20/19 11:24 White Blood Count 6.2 10^3/ul (4.8-10.8) Red Blood Count 4.41 10^6/ul (4.70-6.10) Hemoglobin 11.4 g/dl (14.0-18.0) Hematocrit 37.0 % (42.0-52.0) Mean Corpuscular Volume 83.9 fl (82.0-101.0) Mean Corpuscular Hemoglobin 25.9 pg (29.0-33.0) Mean Corpuscular 30.8 g/dl (32.0-37.0) Hemoglobin Concent Red Cell Distribution Width 18.1 % (11.5-14.5) Platelet Count 208 10^3/UL (140-415) Mean Platelet Volume 10.1 fl (7.4-10.4) Immature Granulocytes % 0.500 % (0.001-0.429) Neutrophils % 72.2 % (39.0-77.0) Lymphocytes % 15.2 % (15.0-51.0) Monocytes % 8.7 % (0.0-11.0) Eosinophils % 2.9 % (0.0-7.0) Basophils % 0.5 % (0.0-2.0) Nucleated Red Blood Cells % 0.0 /100WBC (0.0-0.0) Immature Granulocytes # 0.030 10^3/ul (0.0-0.031) Neutrophils # 4.5 10^3/ul (1.6-7.5) Lymphocytes # 1.0 10^3/ul (0.8-2.9) Monocytes # 0.5 10^3/ul (0.3-0.9) Eosinophils # 0.2 10^3/ul (0.0-0.5) Basophils # 0.0 10^3/ul (0.0-0.1) Nucleated Red Blood Cells # 0.0 10^3/ul (0.0-0.0) Sodium Level 135 mmol/L (135-144) Potassium Level 3.2 mmol/L (3.5-5.1) Chloride Level 92 mmol/L (97-110) Carbon Dioxide Level 31 mmol/L (21-31) Anion Gap 12 (5-13) Blood Urea Nitrogen 49 mg/dl (7-20) Creatinine 1.69 mg/dl (0.61-1.24) Est Glomerular Filtrat mL/min (>60) Rate mL/min Glucose Level 133 mg/dl (70-220) Calcium Level 9.9 mg/dl (8.4-10.2) Phosphorus Level 3.1 mg/dl (2.5-4.9) Magnesium Level 2.4 mg/dl (1.7-2.5) Lactic Acid Level 3.5 mmol/L (0.5-2.0) CASSY SAUNDERS Jan 20, 2019 13:04
[2019-01-20] MEDS ORDERED: DOCUSATE SODIUM 100 MG CAP PO SCH (21:00)
== END 2019-01-20 13:19 | disposition left against medical advice (07) | DRG 291 ==
LOC: E/R 14:51 → 6WM 16:59 → OBSVTOIN 18:31 → CANRESERV 18:59 → CANBEDREQ 19:11 → ICU 01-18 10:37
PROVIDERS: ADMIT Internal Medicine; ATTEND Internal Medicine
PROC: 02HV33Z Insertion of Infusion Device into Superior Vena Cava, Percutaneous Approach (ICD-10-PCS; principal; 2019-01-18)
DX: I13.0 Hypertensive heart and chronic kidney disease with heart failure and stage 1 through stage 4 chronic kidney disease, or unspecified chronic kidney disease (principal); I50.23 Acute on chronic systolic (congestive) heart failure; R57.0 Cardiogenic shock; J18.9 Pneumonia, unspecified organism; N17.9 Acute kidney failure, unspecified; E87.2 Acidosis; J96.10 Chronic respiratory failure, unspecified whether with hypoxia or hypercapnia; I47.2 Ventricular tachycardia; I48.0 Paroxysmal atrial fibrillation; I27.20 Pulmonary hypertension, unspecified; J44.9 Chronic obstructive pulmonary disease, unspecified; N18.3 Chronic kidney disease, stage 3 (moderate); I73.9 Peripheral vascular disease, unspecified; I25.5 Ischemic cardiomyopathy; I25.2 Old myocardial infarction; I25.10 Atherosclerotic heart disease of native coronary artery without angina pectoris; D63.1 Anemia in chronic kidney disease; R10.13 Epigastric pain; Z87.891 Personal history of nicotine dependence; Z98.61 Coronary angioplasty status; Z95.810 Presence of automatic (implantable) cardiac defibrillator
CPT/HCPCS: 36415; 36569; 36600; 71045; 71250; 74176; 76775; 76937; 78226; 80048; 80053; 80076; 82803; 83605; 83690; 83735; 83880; 84100; 84145; 84443; 84484; 85025; 85610; 85730; 93005; 94640; 94664; 97161; 97165; 97530; 97535; G0378; J1250; A9537; J0692; J2270; J2405; J2543; J3480